=== PATIENT | male | born 1960 | race Caucasian/White ===

== ENCOUNTER 2024-10-15 13:18 | Inpatient (IN) | payer BC, SELFPAY ==
[2024-10-15] VITALS (21 sets, daily range): BP systolic 143–160; BP diastolic 86–109; PULSE 94–116; RESP 14–47; TEMP 36.1–36.6; O2SAT 84–100; BMI 25.0
--- NOTE | 2024-10-15 13:49 | XR_ITS ---
Examination: AP chest single view Technique: AP portable upright chest single view Exam date and time: October 15, 2024 1416 hrs. Comparison September 27, 2024 Indications: Onset shortness of breath today Findings: Moderate CHF Mild enlargement cardiac contour Prominent vascular congestion with perihilar edema Consider superimposed pneumonia right base Impression: Moderate CHF Consider superimposed pneumonia right base
--- NOTE | 2024-10-15 13:49 | EKG_ITS ---
[facility] Test Date: 2024-10-15 Pat Name: EDDIE LAMBERT Department: Room: - Gender: Male Emergency Nurse: : 1960 Requested By: Segundo Gotti Order Number: [id number] Reading MD: Segundo Gotti Measurements Intervals [place] Rate: 112 P: 4 VA: 140 QRS: 3 QRSD: 93 T: 92 QT: 327 QTc: 447 Interpretive Statements SINUS TACHYCARDIA WITH OCCASIONAL VENTRICULAR PREMATURE COMPLEXES LEFT VENTRICULAR HYPERTROPHY AND ST-T CHANGE [VOLTAGE CRITERIA PLUS ST/T ABNORMALITY] Compared to ECG 09/27/2024 13:43:55 Ventricular premature complex(es) now present Left ventricular hypertrophy now present ST (T wave) deviation now present T-wave abnormality no longer present /store/S0/[id number].pdf
--- NOTE | 2024-10-15 13:52 | PC.NURSE ---
Patient to er via [facility] with c/o SOB, with h/o pnuemonia. Patient recently had left foot amputation x 2 wks ago, skin is cool dry and pink, Dr. Gotti at bedside, new orders received. DIGESTION OPERATOR at bedside performing ekg.
[2024-10-15] MEDS: SODIUM CHLORIDE 0.9% 1000 ML 1,000 ML 999 ML IV (13:57)
[2024-10-15] MEDS: ALBUTEROL RT 2.5 MG/3 ML NEBU INH (14:01)
[2024-10-15] MEDS: predniSONE 20 MG TABLET 60 MG PO (14:03)
[2024-10-15 14:11] LABS: Lactate (Lactic Acid) 1.2 mMol/L (0.4-2.0)
[2024-10-15 14:13] LABS: Basophils # (Auto) 0.1 Thou/mm3 (0.0-0.2); Basophils % (Auto) 1 % (0-2.5); Eosinophils % (Auto) 0 % (0-10); Hemoglobin 9.2 g/dL (13.5-16.0); Immature Granulocytes % (Auto) 1 % (0-0); Immature Granulocytes Auto 0.09 Thou/mm3 (0.00-0.00); Lymphocytes # (Auto) 0.9 Thou/mm3 (1.0-4.8); Lymphocytes % (Auto) 8 % (10-50); Mean Corpuscular HGB Conc 31.7 g/dl (31.0-37.0); Mean Corpuscular Hemoglobin 28.2 pg (25.0-35.0); Mean Corpuscular Volume 89 fL (80-100); Monocytes % (Auto) 8 % (0-12); Neutrophils # (Auto) 9.7 Thou/mm3 (1.8-7.7); Neutrophils % (Auto) 82 % (37-80); Nucleated Red Blood Cell % 0 /100 WBC (0); Platelet Count 409 Thou/mm3 (140-440); RDW Standard Deviation 52.4 fL (35.1-43.9); Red Blood Count 3.26 Miln/mm3 (4.50-5.90); White Blood Count 11.7 Thou/mm3 (3.8-10.6)
[2024-10-15 14:30] LABS: Partial Thromboplastin Time 27.9 Seconds (22.0-36.0); Prothrombin Time 11.1 Seconds (9.0-12.2)
--- NOTE | 2024-10-15 14:41 | PD.EDSOB ---
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 Reports additional increasing cough, tightness in his left chest. Denies fevers, chills, nausea, vomiting. Denies chest pain. No further history reported at this time. Related Data Home Medications ?Medication ?Instructions ?Recorded ?Confirmed alprazolam 0.25 mg tablet 0.25 mg PO Q12HR PRN Anxiety 10/15/24 10/15/24 amoxicillin 875 mg-potassium 1 tab PO BID 10/15/24 10/15/24 clavulanate 125 mg tablet apixaban 2.5 mg tablet (Eliquis) 2.5 mg PO BID 10/15/24 10/15/24 ascorbic acid (vitamin C) 500 mg 500 mg PO QDAY 10/15/24 10/15/24 tablet bisacodyl 10 mg rectal suppository 10 mg NV QDAY PRN Constipation 10/15/24 10/15/24 (Dulcolax (bisacodyl)) calcium carbonate 600 mg PO TID 10/15/24 10/15/24 gabapentin 100 mg tablet 100 mg PO BID 10/15/24 10/15/24 glipizide 5 mg tablet 5 mg PO QDAY 10/15/24 10/15/24 guaifenesin 50 mg/5 mL oral liquid 200 mg PO Q4H PRN Secretions 10/15/24 10/15/24 hydrocodone 5 mg-acetaminophen 325 1 tab PO Q12HR PRN Moderate Pain 10/15/24 10/15/24 mg tablet (Scale Score 5-6) insulin aspart U-100 100 unit/mL See Rx Instructions .Route 10/15/24 10/15/24 subcutaneous solution .COMPLEX PRN Hyperglycemia insulin glargine 100 unit/mL (3 10 unit subcut QAM 10/15/24 10/15/24 mL) subcutaneous pen (Lantus Solostar U-100 Insulin) lactobacillus combination no.4 3 3,000 mmu cells PO QDAY 10/15/24 10/15/24 billion cell capsule (Probiotic) magnesium hydroxide 400 mg/5 mL 30 ml PO Q72H PRN Constipation 10/15/24 10/15/24 oral suspension (Milk of Magnesia) prednisone 20 mg tablet 20 mg PO QDAY 10/15/24 10/15/24 sodium phosphates 19 gram-7 118 ml NV Q72H PRN Constipation 10/15/24 10/15/24 gram/118 mL enema (Fleet Enema) zinc 10 mg tablet 10 mg PO QDAY 10/15/24 10/15/24 Previous Rx's ?Medication ?Instructions ?Recorded amlodipine 5 mg tablet 10 mg (2 x 5 mg) PO QDAY #1 tab 10/03/24 atorvastatin 20 mg tablet 40 mg (2 x 20 mg) PO HS #1 tab 10/03/24 metoprolol succinate 25 mg 25 mg PO QDAY #13 tabs 10/03/24 tablet,extended release 24 hr Allergies Allergy/AdvReac Type Severity Reaction Status Date / Time No Known Allergies Allergy Verified 09/22/24 03:47 Review of Systems Review of Systems Narrative Review of Systems: Gen: No fever, no chills, no weight loss EYES: No discharge, no visual changes, no pain HEENT: No ear pain, no congestion, no sore throat PULM: +shortness of breath, no cough, no congestion CV: +chest tightness. No chest pain, no dyspnea on exertion, no palpitations GI: No nausea, no vomiting, no diarrhea, no pain, no constipation : No frequency, no urgency, no dysuria Musc/skel: No joint pain, no back pain Skin: No rash Psyc: No hallucinations, no depression Heme/Lymph: No easy bleeding or bruising tendencies Neuro: No weakness, no headache Past Medical History Past Medical History NEUROLOGIC: Negative Seizures CARDIAC: Positive Hypercholesterolemia, Cellulitis, Hypertension and Hypotension; Negative Cardiac Disorders, Peripheral Vascular Disease, Congestive Heart Failure, Valvular Heart Disease, Rheumatic Fever, Edema, Pericarditis or Varicose Veins RESPIRATORY: Positive Asthma (pneumonia); Negative Chronic Obstructive Pulmonary Disease (COPD) GASTROINTESTINAL: Negative Gastrointestinal Disorders GENITOURINARY: Negative Renal Disease or Benign Prostatic Hyperplasia MUSCULOSKELETAL: Negative Fractures ENDOCRINE: Positive Diabetes Mellitus Type 2; Negative Endocrine Disorders, Diabetes Mellitus Type 1, Brayden's Syndrome, [place]'s Disease or Adrenal Disease HEMATOLOGIC: Negative Sickle Cell Disease PSYCHO/SOCIAL: Negative Depression or Anxiety OTHER HISTORY: Positive Falls; Negative Blood Transfusions, Anesthesia Reactions or Cancer Surgical History SURGICAL: Negative Pacemaker Social History SMOKING STATUS: Former smoker SUBSTANCE USE: does not use ED Exam Narrative Physical exam: GENERAL APPEARANCE: AxOx4, no acute distress, mild palor HEENT: NC, AT. MMM. EOMI, clear conjunctiva, oropharynx clear. NECK: Supple without lymphadenopathy. No stiffness or restricted ROM. HEART: Normal rate and regular rhythm, normal S1/S1, no m/r/g LUNGS: course wheezes bilateral lung [place], moving air well. No crackles ABDOMEN: Soft, nontender, nondistended with good bowel sounds heard. BACK: No midline C/T/L spine pain or deformity, No CVAT, no obvious deformity. EXTREMITIES: Right foot amputation surgical scar clean dry and intact. Without cyanosis, clubbing or edema. MUSCULOSKELETAL: FROM of all major joints, no chest tenderness NEUROLOGICAL: Grossly nonfocal. Alert and oriented, moving all 4 extremities. CN not formally tested but appear grossly intact. Observed to ambulate with normal gait. Skin: Warm and dry without any rash.mild palor Course Quality Measures none Orders Category Date Time Status Bedside COVID-19 Antigen Test NOW Care 10/15/24 13:49 Active Bedside Influenza A&B Antigen Test NOW Care 10/15/24 13:[address] Screening NOW Care 10/15/24 14:50 Active EKG (ED ONLY) *Do not use* NOW Care 10/15/24 13:49 Completed Notify provider NOW Care 10/15/24 16:39 Active Urinary Catheter QS Care 10/15/24 16:[address] angio chest Stat Exams 10/15/24 14:50 Completed EKG (ED Only) Stat Exams 10/15/24 13:49 Draft XR chest 1V Stat Exams 10/15/24 13:49 Completed BNP [B-Type Natriuretic Peptide] Stat Lab 10/15/24 14:00 Completed Blood Culture (Lab) Stat Lab 10/15/24 14:00 Results CBC Stat Lab 10/15/24 14:00 Completed CMP [Comprehensive Metabolic Panel] Stat Lab 10/15/24 14:00 Completed Lactate (Lactic Acid) Stat Lab 10/15/24 14:00 Completed PTT [Partial Thromboplastin Time] Stat Lab 10/15/24 23:30 Completed Partial Thromboplastin Time AM DRAW Lab 10/17/24 04:55 Completed Partial Thromboplastin Time Stat Lab 10/15/24 14:00 Completed Procalcitonin Stat Lab 10/15/24 14:00 Completed Prothrombin Time with INR AM DRAW Lab 10/17/24 04:55 Completed Prothrombin Time with INR Stat Lab 10/15/24 14:00 Completed Troponin I Stat Lab 10/15/24 14:00 Completed Urinalysis Stat Lab 10/15/24 16:20 Completed ALBUTEROL RT 3ml [Proventil Rt 3ml] Med 10/15/24 13:49 Discontinued 2.5 mg INH X1 ONE Furosemide Inj [Lasix Inj] Med 10/15/24 15:59 Discontinued 40 mg IVP X1 ONE Heparin Inj Med 10/15/24 16:39 Discontinued 4,000 unit IV X1 ONE Heparin/D5w 25K 250 ML Ivpb [Heparin in D5w Ivpb] Med 10/15/24 16:45 Discontinued 25,000 unit in 250 ml IV 11.603 units/kg/hr Sodium Chloride 0.9% 1000 ml [Ns] 1,000 ml Med 10/15/24 13:48 Discontinued IV 999 mls/hr predniSONE Med 10/15/24 13:48 Discontinued 60 mg PO X1 ONE Vital Signs Vital signs: Vital Signs Temperature 97.8 F 10/15/24 13:38 Pulse Rate 114 H 10/15/24 13:38 Respiratory Rate 28 H 10/15/24 13:38 Blood Pressure 159/109 H 10/15/24 13:38 Pulse Oximetry (%) 84 L 10/15/24 13:38 Oxygen Delivery Method Room Air 10/15/24 13:38 Shortness of Breath / Dyspnea Patient data External records reviewed:: [facility] previous records Clinical information provided by:: patient Social determinants that could affect healthcare access:: none Patient has the following chronic illnesses:: hypertension, diabetes. How is presenting disease/condition affected by chronic disease/condition?: exacerbated by Evaluation data The following diagnostics were reviewed and interpreted by me:: lab results, radiology exam(s) and EKG tracing(s) (Sinus tachycardia, rate 109,normal axis, normal intervals, no acute ST or T wave changes) Lab and/or radiology exams considered but not ordered:: none Interpretation Summary: Ordering Physician: Segundo Gotti MD Date of Service: 10/15/24 Procedure(s): XR chest 1V Accession Number(s): [id number] cc: Segundo Gotti MD; Homer Mohr MD~ Examination: AP chest single view Technique: AP portable upright chest single view Exam date and time: October 15, 2024 1416 hrs. Comparison September 27, 2024 Indications: Onset shortness of breath today Findings: Moderate CHF Mild enlargement cardiac contour Prominent vascular congestion with perihilar edema Consider superimposed pneumonia right base Impression: Moderate CHF Consider superimposed pneumonia right base Dictated By: Homer Mohr MD Signed By: <Electronically signed by Homer Mohr MD in OV> 10/15/24 1432 Ordering Physician: Segundo Gotti MD Date of Service: 10/15/24 Procedure(s): CT angio chest Accession Number(s): [id number] cc: Segundo Gotti MD; Homer Mohr MD; Rickie Meneses MD~ Examination: CTA chest with intravenous contrast 2-D reconstructions 3-D reconstructions, vascular Date and time of exam: October 15, 2024 1527 hrs. Indications: Onset nausea vomiting shortness of breath chest pain beginning 3 days ago, clinical diagnosis pulmonary artery emboli, moderate CHF with perihilar edema on chest x-ray October 15, 2024 CTDI: vol (mGy) 25.51 DLP: (mGycm) 476 Technique: Multiple axial sections of the thorax have been obtained. 3 mm slice thickness, from below the hemidiaphragms to above the apices of the lungs. Mediastinal and lung density settings have been obtained. 2-D sagittal and coronal reconstructions. 3-D angiographic renderings, 3-D volume renderings, 3D post processing, vascular maximum intensity projections obtained. Contrast administered is 100 cc Isovue-370. Low dose protocols were performed. One or more of the following dose reduction techniques were used; automated exposure control, adjustment of the mA and/or KV according to patient size, use of iterative reconstruction technique. Findings: No thoracic aortic aneurysm dilatation or dissection Main pulmonary artery segment measures 25 mm Positive for small pulmonary artery emboli right upper lobe pulmonary artery branches, for instance axial image 150, 151 Positive for small pulmonary artery emboli right lower lobe pulmonary artery branches, for instance axial image 159 Moderate CHF with mild to moderate enlargement cardiac contour, prominent vascular congestion, perihilar edema and large bilateral pleural effusions No visualized liver or splenic lesion Kidneys partially visualized no hydronephrosis Moderate osteopenia Impression: Moderate CHF Positive for small bilateral pulmonary artery emboli, right upper lobe and right lower lobe pulmonary artery branches Dictated By: Homer Mohr MD Signed By: <Electronically signed by Homer Mohr MD in OV> 10/15/24 1620 == Medications / Prescriptions Medications or Prescriptions considered but not ordered:: none Medication administrations:: Medication Administration History Acetaminophen (Acetaminophen 325 Mg Tablet) 650 mg PO Q6HR PRN PRN Reason: Mild Pain 1-3 or Fever >100.3 Stop: 11/14/24 20:46 Last Admin: 10/17/24 18:31 Dose: 650 mg Documented By: GEORGES Amlodipine Besylate (Amlodipine Besylate 5 Mg Tablet) 5 mg PO [facility] Stop: 11/14/24 20:59 Last Admin: 10/17/24 21:05 Dose: 5 mg Documented By: [facility] Admin: 10/16/24 20:14 Dose: 5 mg Documented By: Admin: 10/15/24 22:09 Dose: Not Given Documented By: AM Non-Admin Reason: Unable to Swallow Atorvastatin Calcium (Atorvastatin Calcium 20 Mg Tablet) 40 mg PO [facility] Stop: 11/14/24 20:59 Last Admin: 10/17/24 21:04 Dose: 40 mg Documented By: [facility] Admin: 10/16/24 20:14 Dose: 40 mg Documented By: Admin: 10/15/24 22:10 Dose: Not Given Documented By: AM Non-Admin Reason: Unable to Swallow Bumetanide (Bumetanide Inj 0.25 Mg/Ml Vial 4 Ml) 2 mg IVP BID [facility] Stop: 11/15/24 12:29 Last Admin: 10/17/24 21:04 Dose: 2 mg Documented By: [facility] Admin: 10/17/24 08:09 Dose: 2 mg Documented By: Admin: 10/16/24 20:14 Dose: 2 mg Documented By: Admin: 10/16/24 14:10 Dose: 2 mg Documented By: DORA Dextrose (Dextrose 50%-Water Inj 50 Ml Syringe) 25 ml IV Q15MIN PRN PRN Reason: BG 50-70 responsive npo pt Stop: 11/14/24 20:30 Dextrose (Dextrose 50%-Water Inj 50 Ml Syringe) 50 ml IV Q15MIN PRN PRN Reason: BG <50 OR BG <70 & pt unresponsive Stop: 11/14/24 20:30 Glucagon (Glucagon Inj 1 Mg Vial) 1 mg IM Q15MIN PRN PRN Reason: BG <70, and no IV access Cefepime HCl 2 gm/ Sodium (Chloride) 50 mls @ 100 mls/hr IV Q8HR JAZMÍN Stop: 10/22/24 20:21 Last Admin: 10/18/24 05:34 Dose: 100 mls/hr Documented By: Infusion: 10/17/24 21:36 Dose: Infused Documented By: Admin: 10/17/24 21:06 Dose: 100 mls/hr Documented By: Infusion: 10/17/24 15:15 Dose: Infused Documented By: Admin: 10/17/24 14:45 Dose: 100 mls/hr Documented By: Infusion: 10/17/24 06:21 Dose: Infused Documented By: Admin: 10/17/24 05:51 Dose: 100 mls/hr Documented By: Infusion: 10/16/24 22:09 Dose: Infused Documented By: Admin: 10/16/24 21:39 Dose: 100 mls/hr Documented By: Infusion: 10/16/24 14:41 Dose: Infused Documented By: Admin: 10/16/24 14:11 Dose: 100 mls/hr Documented By: Infusion: 10/16/24 06:05 Dose: Infused Documented By: Admin: 10/16/24 05:35 Dose: 100 mls/hr Documented By: Admin: 10/15/24 21:34 Dose: Not Given Documented By: AM Non-Admin Reason: given at 2024 in the ER Infusion: 10/15/24 21:04 Dose: Infused Documented By: Admin: 10/15/24 20:25 Dose: 100 mls/hr Documented By: KD Magnesium Sulfate (Magnesium Sulfate Ivpb) 4 gm in 50 mls @ 12.5 mls/hr IV X1 ONE Stop: 10/18/24 12:01 Insulin Glargine (Insulin Glargine (Lantus) 5 Unit/0.05 Ml (Per 5 Units)) 12 unit SC HS JAZMÍN Stop: 11/16/24 20:59 Last Admin: 10/17/24 21:05 Dose: 12 unit Documented By: CMC Co-signed By: Insulin Human Lispro (Insulin Lispro (Admelog) 1 Unit/0.01 Ml Unit) 0 unit SC AC [facility]; Protocol Stop: 11/16/24 11:29 Last Admin: 10/18/24 07:24 Dose: Not Given Documented By: TM Non-Admin Reason: Per Protocol Admin: 10/17/24 17:05 Dose: 1 unit Documented By: PP Co-signed By: JAYSON Admin: 10/17/24 12:26 Dose: Not Given Documented By: PP Non-Admin Reason: NPO Insulin Human Lispro (Insulin Lispro (Admelog) 1 Unit/0.01 Ml Unit) 1 unit SC AC [facility] Stop: 11/16/24 11:29 Last Admin: 10/18/24 08:49 Dose: Not Given Documented By: TM Non-Admin Reason: Patient Refused Admin: 10/17/24 17:05 Dose: 1 unit Documented By: GEORGES Co-signed By: JAYSON Admin: 10/17/24 12:25 Dose: Not Given Documented By: PP Non-Admin Reason: NPO Levalbuterol HCl (Levalbuterol Rt 0.31 Mg/3 Ml Nebu) 0.31 mg INH Q8HR PRN PRN Reason: WHEEZING Stop: 11/15/24 13:32 Last Admin: 10/16/24 23:12 Dose: 0.31 mg Documented By: Admin: 10/16/24 16:11 Dose: 0.31 mg Documented By: JOEL Lorazepam (Lorazepam 2 Mg/Ml Vial) 0.5 mg IVP BID PRN PRN Reason: ANXIETY Stop: 10/20/24 20:59 Last Admin: 10/17/24 08:21 Dose: 0.5 mg Documented By: Admin: 10/15/24 18:53 Dose: 0.5 mg Documented By: ERICA Melatonin (Melatonin 3 Mg Tablet) 3 mg PO HS JAZMÍN Stop: 11/15/24 02:14 Last Admin: 10/17/24 21:04 Dose: 3 mg Documented By: Admin: 10/16/24 20:14 Dose: 3 mg Documented By: Admin: 10/16/24 02:58 Dose: Not Given Documented By: AM Non-Admin Reason: patient is already sleeping Potassium Chloride (Potassium Chloride 20 Meq Tabcr) 20 meq PO X1 ONE Stop: 10/18/24 10:01 Sennosides (Senna Tablet) 1 tab PO QDAY PRN; Protocol PRN Reason: CONSTIPATION Stop: 11/15/24 15:31 Discontinued Medications Albuterol (Albuterol Rt 2.5 Mg/3 Ml Nebu) 2.5 mg INH X1 ONE Stop: 10/15/24 13:50 Last Admin: 10/15/24 14:01 Dose: 2.5 mg Documented By: JOEL Albuterol (Albuterol Rt 2.5 Mg/0.5 Ml Nebu) Confirm Administered Dose 5 mg .ROUTE .STK-MED ONE Stop: 10/15/24 21:45 Furosemide (Furosemide Inj 10 Mg/Ml 4ml Vial) 40 mg IVP X1 ONE Stop: 10/15/24 16:00 Last Admin: 10/15/24 16:07 Dose: 40 mg Documented By: ERICA Furosemide (Furosemide Inj 10 Mg/Ml 4ml Vial) 40 mg IVP QDAY [facility] Stop: 11/15/24 08:59 Furosemide (Furosemide Inj 10 Mg/Ml 4ml Vial) 40 mg IVP BID JAZMÍN Stop: 11/15/24 08:59 Last Admin: 10/16/24 08:09 Dose: 40 mg Documented By: DORA Furosemide (Furosemide Inj 10 Mg/Ml 4ml Vial) 40 mg IVP X1 ONE Stop: 10/15/24 21:50 Last Admin: 10/15/24 22:02 Dose: Not Given Documented By: AM Non-Admin Reason: Duplicate Medication on eMAR Furosemide (Furosemide Inj 10 Mg/Ml 4ml Vial) Confirm Administered Dose 40 mg .ROUTE .STK-MED ONE Stop: 10/15/24 21:46 Last Admin: 10/15/24 21:57 Dose: 40 mg Documented By: MARLIN Guaifenesin (Guaifenesin/P-Ephed Tablet) 1 tab PO X1 ONE Stop: 10/15/24 20:57 Last Admin: 10/15/24 21:35 Dose: Not Given Documented By: MARLIN Non-Admin Reason: Patient Refused Guaifenesin (Guaifenesin Syrup 200 Mg/10 Ml Udc) 100 mg PO X1 ONE; Protocol Stop: 10/18/24 02:10 Last Admin: 10/18/24 02:26 Dose: 100 mg Documented By: CRISTO Heparin Sodium (Porcine) (Heparin Sod Inj 5000 Unit/Ml Vial) 4,000 unit IV X1 ONE; Protocol Stop: 10/15/24 16:40 Last Admin: 10/15/24 17:09 Dose: 4,000 unit Documented By: ERICA Co-signed By: ARELIS Comments: via 18g right ac Heparin Sodium (Porcine) (Heparin Sod Inj 5000 Unit/Ml Vial) 4,000 unit IV X1 ONE Stop: 10/16/24 01:16 Last Admin: 10/16/24 01:11 Dose: 4,000 unit Documented By: MARLIN Co-signed By: [email or web address]) Heparin Sodium (Porcine) (Heparin Sod Inj 5000 Unit/Ml Vial) 2,000 unit IV X1 ONE Stop: 10/16/24 17:35 Last Admin: 10/16/24 17:45 Dose: 2,000 unit Documented By: DORA Co-signed By: JAMEL Sodium Chloride (Ns) 1,000 mls @ 999 mls/hr IV .Q1H1M ONE Stop: 10/15/24 14:48 Last Infusion: 10/15/24 15:00 Dose: Infused Documented By: Admin: 10/15/24 13:57 Dose: 999 mls/hr Documented By: ERICA Heparin Sodium/Dextrose (Heparin In D5w Ivpb) 25,000 unit in 250 mls @ 10 mls/hr IV .Q24H JAZMÍN; Protocol Stop: 10/29/24 16:44 Last Titration: 10/16/24 10:23 Dose: 15.6 units/kg/hr, 13.445 mls/hr Documented By: DORA Co-signed By: MGD Titration: 10/16/24 01:12 Dose: 15.6 units/kg/hr, 13.445 mls/hr Documented By: MARLIN Co-signed By: [email or web address]) Admin: 10/15/24 17:11 Dose: 11.603 units/kg/hr, 10 mls/hr Documented By: KM Co-signed By: EF Magnesium Sulfate (Magnesium Sulfate Ivpb) 4 gm in 50 mls @ 12.5 mls/hr IV X1 ONE Stop: 10/16/24 12:07 Last Admin: 10/16/24 08:22 Dose: 12.5 mls/hr Documented By: NS Magnesium Sulfate (Magnesium Sulfate Ivpb) 4 gm in 50 mls @ 12.5 mls/hr IV X1 ONE Stop: 10/16/24 16:59 Last Admin: 10/16/24 15:03 Dose: 12.5 mls/hr Documented By: NS Heparin Sodium/Dextrose (Heparin In D5w Ivpb) 25,000 unit in 250 mls @ 10 mls/hr IV .Q24H PRN; Protocol PRN Reason: PROTOCOL Stop: 10/29/24 16:44 Last Titration: 10/17/24 14:31 Dose: 17.55 units/kg/hr, 15.125 mls/hr Documented By: PP Co-signed By: MGDeidre Admin: 10/17/24 08:22 Dose: 17.55 units/kg/hr, 15.125 mls/hr Documented By: PP Co-signed By: LW Titration: 10/17/24 07:29 Dose: Infused Documented By: PP Co-signed By: LW Titration: 10/17/24 06:15 Dose: 17.55 units/kg/hr, 15.125 mls/hr Documented By: SA Co-signed By: PP Titration: 10/17/24 01:25 Dose: 17.55 units/kg/hr, 15.125 mls/hr Documented By: SA Co-signed By: WB Titration: 10/16/24 17:46 Dose: 17.55 units/kg/hr, 15.125 mls/hr Documented By: NS Co-signed By: JRR Admin: 10/16/24 14:35 Dose: 15.55 units/kg/hr, 13.4 mls/hr Documented By: NS Co-signed By: RADHA Insulin Glargine (Insulin Glargine (Lantus) 5 Unit/0.05 Ml (Per 5 Units)) 10 unit SC HS JAZMÍN Stop: 11/14/24 20:59 Last Admin: 10/16/24 20:10 Dose: 10 unit Documented By: Co-signed By: NICOLE Admin: 10/15/24 22:12 Dose: 10 unit Documented By: AM Co-signed By: Insulin Human Lispro (Insulin Lispro (Admelog) 1 Unit/0.01 Ml Unit) 0 unit SC ACHS [facility]; Protocol Stop: 11/14/24 20:59 Last Admin: 10/17/24 08:09 Dose: Not Given Documented By: PP Non-Admin Reason: NPO Admin: 10/16/24 20:10 Dose: 1 unit Documented By: Co-signed By: NICOLE Admin: 10/16/24 17:51 Dose: 1 unit Documented By: DORA Co-signed By: PANCHO Admin: 10/16/24 11:31 Dose: 2 unit Documented By: DORA Co-signed By: JAYSON Admin: 10/16/24 07:43 Dose: 1 unit Documented By: DORA Co-signed By: RADHA Admin: 10/15/24 22:12 Dose: 2 unit Documented By: AM Co-signed By: NICOLE Levalbuterol HCl (Levalbuterol Rt 0.31 Mg/3 Ml Nebu) 0.31 mg INH X1 ONE Stop: 10/16/24 08:23 Last Admin: 10/16/24 09:13 Dose: 0.31 mg Documented By: MR Lidocaine HCl (Lidocaine Inj Pf 1% 30 Ml Vial) Confirm Administered Dose 30 ml .ROUTE .STK-MED ONE Stop: 10/17/24 13:29 Potassium Chloride (Potassium Chloride 10% 20 Meq/15 Ml Udc) 40 meq PO X1 ONE Stop: 10/17/24 10:13 Last Admin: 10/17/24 14:44 Dose: 40 meq Documented By: PP Potassium Chloride (Potassium Chloride 20 Meq Tabcr) 40 meq PO X1 ONE Stop: 10/18/24 08:02 Prednisone (Prednisone 20 Mg Tablet) 60 mg PO X1 ONE Stop: 10/15/24 13:49 Last Admin: 10/15/24 14:03 Dose: 60 mg Documented By: ERICA Sodium Chloride (Sodium Cl Rt [place] 3% 4 Ml Nebu (Non-Formulary)) 4 ml INH X1 ONE Stop: 10/15/24 20:58 Sodium Chloride (Sodium Chloride Rt 10% 15 Ml Nebu) 5 ml INH X1 ONE Stop: 10/15/24 21:05 Last Admin: 10/15/24 23:44 Dose: 5 ml Documented By: FYS see above Consultations Consultation(s) initiated? (list below): Yes Consultation #1 (Physician, Specialty, Details): Discussed with performance test consultant Dr. Meneses regarding the patients current status and results, agrees to admission Diagnosis Shortness of Breath Differential Diagnosis: other (pneumonia, CHF exacerbation, PE) Most likely diagnosis given after review of the tests above:: CHF exacerbation, bilateral PE Admission Indicated Admission indicated?: indicated Admission Request Was there a request for admission?: Yes Admission Attestation Admission request attestation: Discussed case with Dr. Meneses, his PCP regarding admission. Discussed patients ED course, exam findings, labs, and radiology results. Dr. Meneses agrees to accept the patient for admission. Disposition Plan Disposition Plan: Admit Discharge Plan Plan Patient Disposition: Admit Acute Care w/in Hospital Problem List Clinical Impression: Bilateral pulmonary embolism, Acute exacerbation of CHF (congestive heart failure)
[2024-10-15 14:43] LABS: Alanine Aminotransferase 20 U/L (10-49); Albumin, Serum 3.9 gm/dL (3.4-4.8); Albumin/Globulin Ratio 1.3 (1.2-2.2); Alkaline Phosphatase 106 U/L (46-116); Anion Gap 5 (7-16); Aspartate Amino Transferase 17 U/L (0-34); BUN/Creatinine Ratio 24 Ratio (12-20); Bilirubin,Total 0.3 mg/dL (0.3-1.2); Blood Urea Nitrogen 26 mg/dL (9-23); Calcium 9.2 mg/dL (8.3-10.6); Calcium (Corrected) 9.3 mg/dL (8.5-10.1); Carbon Dioxide 28.1 mMol/L (20.0-31.0); Chloride 104 mMol/L (98-107); Creatinine (Component) 1.1 mg/dL (0.6-1.3); Estimated Creatinine Clearance 77.7 mL/min (>60); Globulin 2.9 gm/dL (2.3-3.5); Glucose 127 mg/dL (74-106); Osmolality,Calculated 280 (275-295); Potassium 3.9 mMol/L (3.4-5.1); Procalcitonin 0.24 ng/ml (0.0-0.49); Sodium 137 mMol/L (136-145); Total Protein 6.8 gm/dL (5.7-8.2); eGFR > 60 See Note
[2024-10-15 14:46] LABS: B-Type Natriuretic Peptide > 3280 pg/mL (0-100)
--- NOTE | 2024-10-15 14:50 | XR_ITS ---
Examination: CTA chest with intravenous contrast 2-D reconstructions 3-D reconstructions, vascular Date and time of exam: October 15, 2024 1527 hrs. Indications: Onset nausea vomiting shortness of breath chest pain beginning 3 days ago, clinical diagnosis pulmonary artery emboli, moderate CHF with perihilar edema on chest x-ray October 15, 2024 CTDI: vol (mGy) 25.51 DLP: (mGycm) 476 Technique: Multiple axial sections of the thorax have been obtained. 3 mm slice thickness, from below the hemidiaphragms to above the apices of the lungs. Mediastinal and lung density settings have been obtained. 2-D sagittal and coronal reconstructions. 3-D angiographic renderings, 3-D volume renderings, 3D post processing, vascular maximum intensity projections obtained. Contrast administered is 100 cc Isovue-370. Low dose protocols were performed. One or more of the following dose reduction techniques were used; automated exposure control, adjustment of the mA and/or KV according to patient size, use of iterative reconstruction technique. Findings: No thoracic aortic aneurysm dilatation or dissection Main pulmonary artery segment measures 25 mm Positive for small pulmonary artery emboli right upper lobe pulmonary artery branches, for instance axial image 150, 151 Positive for small pulmonary artery emboli right lower lobe pulmonary artery branches, for instance axial image 159 Moderate CHF with mild to moderate enlargement cardiac contour, prominent vascular congestion, perihilar edema and large bilateral pleural effusions No visualized liver or splenic lesion Kidneys partially visualized no hydronephrosis Moderate osteopenia Impression: Moderate CHF Positive for small bilateral pulmonary artery emboli, right upper lobe and right lower lobe pulmonary artery branches
[2024-10-15] MEDS: FUROSEMIDE INJ 10 MG/ML 4ML VIAL 40 MG IVP (16:07)
[2024-10-15 16:23] LABS: Collection Type, Urine Clean Catch; Squamous Epithelial Cell,Urine 0 /hpf (0-5)
[2024-10-15 16:29] LABS: Bilirubin,Urine Negative (Negative); Blood,Urine Trace (Negative); Color,Urine Lt-Yellow (Lt Yel-Yel); Glucose, Urine Negative (Negative); Ketones,Urine Negative (Negative); Leukocyte Esterase,Urine Positive (Negative); Nitrite,Urine Negative (Negative); Protein,Urine 3+ (Neg - Trace); RBC,Urine 5 /hpf (0-3); Urobilinogen,Urine Negative mg/dL (0.0-1.0); WBC,Urine 80 /hpf (0-5)
[2024-10-15 16:38] LABS: Clarity,Urine Hazy (Clear/Hazy)
[2024-10-15] MEDS: HEPARIN SOD INJ 5000 UNIT/ML VIAL 4000 UNIT IV (17:09)
[2024-10-15] MEDS: Heparin/D5w 25K 250 ML Ivpb 25,000 UNIT/250 ML BAG 10 UNIT IV (17:11)
--- NOTE | 2024-10-15 18:34 | PC.NURSE ---
Patient anxious requesting anxiety medication has increased WOB, called Dr. Meneses made her aware, new orders received for bipap and ativan.
--- NOTE | 2024-10-15 18:45 | PC.NURSE ---
cancelled bipap and orders for highflow nc.
[2024-10-15] MEDS: LORazepam 2 MG/ML VIAL 0.5 MG IVP (18:53)
--- NOTE | 2024-10-15 18:54 | PC.NURSE ---
Dr. Villarreal at bedside to evaluate patient and RT at bedside to place pt. on high flow NC.
--- NOTE | 2024-10-15 19:08 | PC.CC ---
Pt Сергей Gibson is a 64 yr old male admitted to hospitalist services for bi-lat PE and CHF. HOUSE MOVER HELPER CC met with pt at bedside to complete initial assessment. At time of encounter pt is noted to be alert and oriented but extremely SOB. Pt able to respond to all assessment questions appropriately. Some historic information attained from pts chart. Pt able to confirm demographic information. Pt currently placed at [facility]. Pt identifies his brother Osiel Gibson as surrogate DM. Pt unable to provide contact information. At baseline pt is independent with ambulation and ADLs. Pt is gainfully employed. Pt is diabetic. Pt is not on dialysis. Pt currently on 25L of O2. Pt is followed by Dr. Meneses from primary care. D/c disposition based on pts progress. Pt likely to return to [facility], will require transport. Advance Directive not discussed at this time.
[2024-10-15] MEDS: CEFEPIME INJ 2 GM in SODIUM CHLORIDE 0.9% (P) 50 ML IV (20:25)
--- NOTE | 2024-10-15 20:29 | ECHO_ITS ---
Transthoracic Echo Report Ht (in): 73 Wt (lb): 190 Exam Location: Portable Status: Inpatient Furnace Cleaner: Dedra Oconnor Indications: Procedure Performed: BP: 137 / 80 HR: 98 Rhythm: Sinus Technical Quality: Fair MEASUREMENTS (Male / Female) Normal Values 2D ECHO LV Diastolic Diameter PLAX 6.3 cm 4.2 - 5.9 / 3.9 - 5.3 cm LV Systolic Diameter PLAX 5.3 cm IVS Diastolic Thickness 0.8 cm 0.6 - 1.0 / 0.6 - 0.9 cm LVPW Diastolic Thickness 0.8 cm 0.6 - 1.0 / 0.6 - 0.9 cm LV Relative Wall Thickness 0.2 LVOT Diameter 2.0 cm LA Volume Index 35.6 cm?/m? 16 - 28 cm?/m? Ascending Aorta Diameter 2.8 cm M-MODE Aortic Root Diameter MM 2.9 cm LA Systolic Diameter MM 4.6 cm LA Ao Ratio MM 1.6 MV E Point Septal Separation 1.9 cm AV Cusp Separation MM 2.1 cm DOPPLER AV Peak Velocity 99.2 cm/s AV Peak Gradient 3.9 mmHg AV Mean Gradient 2.0 mmHg AV Velocity Time Integral 19.1 cm LVOT Peak Velocity 83.9 cm/s LVOT Peak Gradient 2.8 mmHg LVOT Velocity Time Integral 13.1 cm LVOT Cardiac Index 1908.6 cm?/min?m? AV Area Cont Eq vti 2.2 cm? AV Area Cont Eq pk 2.7 cm? MV Peak Velocity 121.0 cm/s MV Peak Gradient 5.9 mmHg MV Mean Velocity 66.1 cm/s MV Mean Gradient 2.0 mmHg MV Area PHT 6.5 cm? MR Peak Velocity 375.0 cm/s MR Peak Gradient 56.3 mmHg Mitral E Point Velocity 72.8 cm/s Mitral A Point Velocity 37.3 cm/s Mitral E to A Ratio 2.0 LV E' Lateral Velocity 9.8 cm/s Mitral E to LV E' Lateral Ratio 7.4 LV E' Septal Velocity 10.3 cm/s Mitral E to LV E' Septal Ratio 7.1 TR Peak Velocity 322.0 cm/s TR Peak Gradient 41.5 mmHg FINDINGS Left Ventricle Dilated left ventricle with severe global hypokinesis left ventricular ejection fraction approximate ly 25%. Right Ventricle The right ventricle is normal in size and systolic function. The estimated right ventricular systoli c pressure, 49 mmHg. RAP 5. Left Atrium The left atrium is mildly dilated. Right Atrium The right atrium is normal by two-dimensional imaging, color flow and Doppler imaging with no struct ural abnormalities, no thrombus formation present. Atrial Septum The interatrial septum appears normal with no evidence of a shunt. Aorta The aorta is normal by two-dimensional, color flow and Doppler interrogation. Mitral Valve The mitral valve is mildly MAC. There is mild mitral valve regurgitation. Aortic Valve The aortic valve is trileaflet and normal by two-dimensional, color flow and Doppler interrogation. There is no significant aortic valve regurgitation. Tricuspid Valve The tricuspid valve is normal by two-dimensional, color flow and Doppler interrogation. There is mil d tricuspid valve regurgitation. Pulmonic Valve There is no significant pulmonic valve regurgitation. Vessels The pulmonary artery appears normal. The inferior vena cava pulmonary and hepatic veins appear elver l. Pericardium The pericardium is normal by two-dimensional imaging. There is pericardial effusion. Other Findings Left pleural effusion present. CONCLUSIONS Dilated cardiomyopathy severe global hypokinesis severe systolic dysfunction ejection fraction of 25 %. Mitral valve thickening mild mitral regurgitation. Mild tricuspid regurgitation. Evidence of large left pleural effusion is present. Nena Patel (Electronically Signed) Final Date: 17 October 2024 19:21
--- NOTE | 2024-10-15 20:42 | PC.NURSE ---
REPORT CALLED TO LETICIA FELDMAN. ALL QUESTIONS ASKED AND ANSWERED. IVF INFUSING WITHOUT DIFFICULTY. PATIENT TRANSFERRED WITH STAFF NO DISTRESS NOTICED AT TRANSFER.
--- NOTE | 2024-10-15 20:59 | ESHP_ITS ---
<Statement entered by Olaf Alvarenga MD - 10/16/24 02:34> I was present for the essential components of the history, physical examination, diagnosis, and treatment plan with the resident. I have reviewed the documentation, discussed the case with the resident and agree with the patient's care as documented by the resident. Olaf Alvarenga MD Documentation for date of: 10/15/24 HPI History of Present Illness History of present illness: CC: SOB Patient is a 64-year-old male with a past medical history of hypertension, hyperlipidemia, diabetes mellitus type 2 insulin-dependent and a recent history of BKA on (09/29/2024) recently discharged on October 06, 2024. Patient presented to the emergency room via EMS for the chief complaint of increasing shortness of breath that began this morning (10/15/2024) with increasing dyspnea, productive cough, chills, subjective fevers, and increased perspiration. Patient tried taking Benadryl but did not improve symptoms. Patient denied hematemesis. Patient denied chest pain or palpitations. Patient denied orthopnea or paroxysmal orthopnea. Past medical history of non-adherence to medication, today, he was unable to recall any of his medication. After discharge, patient complete antibiotic course as inpatient during previous admission. PCP Dr. Meneses. Admitted on 10/15/2024 for Sepsis secondary to community acquired pneumonia and PE. ER Course: Vitals T 97.8, HR 114, RR 28, BP 159/109, SpO2 84% RA WBC 11.7 Hgb 9.2, Hct 29.0 MCV 89 ABG: ABG 7.44, pCO2 38, pO 115 Troponin 1.100, 0.800 BNP>3280 EKG sinus Tachy w/ PVC Cxr (10/15/2024): Moderate CHF, prominent vascular congestion w/ perihilar edema, and consider superimposed pneumonia right base CTA (10/15/2024): Moderate CHF. Positive for small bilateral pulmonary artery emboli, right upper lobe and right lower lobe pulmonary artery branches. UA: Protiens +3, WBC 80, Esterase Positive NS 1 Bous Medication: Albuterol 2.5 mg INH X 1, Prednisone 60 mg PO X 1, Furosemide IVP X1, Loading dose of heparin 4,000 units & weight based heparin drip, Lorazepam 0.5 mg IVP BID PRN PMH: -HTN -HLD -DM type 2, insulin dependent stated blood glucose AM 125-140 Previous A1c 09/23/2024 -6.7 -Previous hospitalization patient had BKA & upgraded to ICU for Aspiration pneumonia (w/ inbuation); Discharged from floors on 10/06/2024. Past Surgical History: -Right, BKA 09/29/2024 Home Medication: Medication Reconciliation Needed, patient is unsure of medication currently taking Eliquis 2.5 mg Metoprolol Succinate 25 mg (denied CHF history) Gabapentin 100 mg Amlodipine 5 mg Atorvastatin 40 mg HS Insulin Lantus Novolog Glipizide 5 mg Social History: Denied illicit drug use Never smoker Allergies: None Code Status: Full code Review of Systems Review of Systems Narrative Review of Systems: General appearance: NO weight change, NO fatigue, NO weakness, Subjective fever, YES chills, NO night sweats, YES cough, PRODUCTIVE; Increase perspiration. Skin: NO rash, NO itching, NO sores, NO moles HEENT: NO Trauma, NO nausea, NO vomiting, NO visual changes, NO blurry vision, NO double vision, NO tinnitus, NO vertigo, NO ear discharge, NO rhinorrhea, NO stuffiness, NO sneezing, NO allergy, NO epistaxis. NO Hoarseness, NO sore throat, NO swollen neck. Cardiac: NO Palpitations, NO dyspnea on exertion, NO orthopnea, NO paroxysmal nocturnal dyspnea, NO edema Respiratory: YES Shortness of Breath, NO Wheezing, YES Cough, YES Sputum, NO hemoptysis GI:NO appetite, NO nausea, NO vomiting, NO dysphagia, NO changes in bowel frequency, NO stool color, NO diarrhea, NO constipation, NO hemetemesis, NO hemorrhoids, NO melena, NO hematechezia, NO abdominal pain, NO jaundice Renal: NO frequency, NO hesitancy, NO urgency, NO hematuria, NO nocturia, NO incontinence MSK: NO muscle weakness, NO gout, NO arthritis, NO muscle stiffness Neuro: NO headaches, NO tremors, NO weakness, NO paralysis, NO seizures, NO loss of consciousness, NO numbness. Hem: NO anemia, NO easy bruising/bleeding, NO petechiae, NO purpura Endo: NO heat/cold intolerance, NO excessive sweating, NO polyuria, NO polydipsia, NO polyphagia, NO thyroid problems, NO diabetes Pysch: NO mood, NO anxiety, NO depression Exam Vital Signs Temp Pulse Resp BP Pulse Ox O2 Del Method O2 Flow Rate 97.4 F 105 H 26 H 159/94 H 96 Nasal Cannula 25 10/15/24 16:18 10/15/24 20:00 10/15/24 20:00 10/15/24 20:00 10/15/24 20:00 10/15/24 18:39 10/15/24 19:02 FiO2 100 10/15/24 19:02 Narrative Exam General Appearance: Alert & Oriented X3, well-nourished male who is lying in bed in mild HEENT: Skull symmetrical and atraumatic. Conjunctivae pin and moist. Pupils equal, round, reactive to light and accommodation (PERRL). External ear without lesion or discharge. Straight, nares patient, mucosa pink, no discharge. No thyroid nodule appreciated. No cervical lymphadenopathy. Cardio: Normal Rate and Rhythm with S1 and S2 heart sounds. No murmurs or extra heart sounds auscultated. No bruits on carotid auscultation. No peripheral edema or cyanosis. Lungs: Symmetric with good expansion. Chest and back non-tender. Decreased breath sounds, increased work of breathing, no accessory muscles noted, and rhonchi noted bilaterally. Abdomen: Non-tender, Non-distended, Normal Reactive Bowel Sounds, No supr-pubic tenderness Neuro: Alert, cooperative, oriented to person, place, and time. Speech clear. CN grossly intact. Upper motor strength 5/5 and Lower motor strength 5/5. Sensation intact. Results: Labs 10/15/24 14:00 10/15/24 14:00 Labs: Short CBC 10/15/24 Range/Units 14:00 WBC 11.7 H (3.8-10.6) Thou/mm3 Hgb 9.2 L (13.5-16.0) g/dL Hct 29.0 L (41.0-53.0) % Plt Count 409 D (140-440) Thou/mm3 BMP 10/15/24 14:00 Sodium 137 Potassium 3.9 Chloride 104 Carbon Dioxide 28.1 BUN 26 H Creatinine 1.1 Glucose 127 H Calcium 9.2 Cardiac Enzymes 10/15/24 10/15/24 Range/Units 14:00 18:00 Troponin I 1.100 H* 0.800 H* D (0.0-0.045) ng/mL Liver Function 10/15/24 Range/Units 14:00 Total Bilirubin 0.3 (0.3-1.2) mg/dL AST 17 (0-34) U/L ALT 20 (10-49) U/L Alkaline Phosphatase 106 (46-116) U/L Albumin 3.9 (3.4-4.8) gm/dL Urine 10/15/24 Range/Units 16:20 Urine Color Lt-Yellow (Lt Yel-Yel) Urine Clarity Hazy (Clear/Hazy) Urine pH 6.0 (5.0-7.0) Ur Specific [place] 1.020 (1.001-1.035) Urine Protein 3+ A (Neg - Trace) Urine Glucose (UA) Negative (Negative) Quality Measures Quality Measures VTE prophylaxis Medications Home Medications and Allergies Home Medications ?Medication ?Instructions ?Recorded ?Confirmed ?Type alprazolam 0.25 mg tablet 0.25 mg PO Q12HR PRN Anxiety 10/15/24 10/15/24 History amoxicillin 875 mg-potassium 1 tab PO BID 10/15/24 10/15/24 History clavulanate 125 mg tablet apixaban 2.5 mg tablet (Eliquis) 2.5 mg PO BID 10/15/24 10/15/24 History ascorbic acid (vitamin C) 500 mg 500 mg PO QDAY 10/15/24 10/15/24 History tablet bisacodyl 10 mg rectal suppository 10 mg MD QDAY PRN Constipation 10/15/24 10/15/24 History (Dulcolax (bisacodyl)) calcium carbonate 600 mg PO TID 10/15/24 10/15/24 History gabapentin 100 mg tablet 100 mg PO BID 10/15/24 10/15/24 History glipizide 5 mg tablet 5 mg PO QDAY 10/15/24 10/15/24 History guaifenesin 50 mg/5 mL oral liquid 200 mg PO Q4H PRN Secretions 10/15/24 10/15/24 History hydrocodone 5 mg-acetaminophen 325 1 tab PO Q12HR PRN Moderate Pain 10/15/24 10/15/24 History mg tablet (Scale Score 5-6) insulin aspart U-100 100 unit/mL See Rx Instructions .Route 10/15/24 10/15/24 History subcutaneous solution .COMPLEX PRN Hyperglycemia insulin glargine 100 unit/mL (3 10 unit subcut QAM 10/15/24 10/15/24 History mL) subcutaneous pen (Lantus Solostar U-100 Insulin) lactobacillus combination no.4 3 3,000 mmu cells PO QDAY 10/15/24 10/15/24 History billion cell capsule (Probiotic) magnesium hydroxide 400 mg/5 mL 30 ml PO Q72H PRN Constipation 10/15/24 10/15/24 History oral suspension (Milk of Magnesia) prednisone 20 mg tablet 20 mg PO QDAY 10/15/24 10/15/24 History sodium phosphates 19 gram-7 118 ml MD Q72H PRN Constipation 10/15/24 10/15/24 History gram/118 mL enema (Fleet Enema) zinc 10 mg tablet 10 mg PO QDAY 10/15/24 10/15/24 History Allergies Allergy/AdvReac Type Severity Reaction Status Date / Time No Known Allergies Allergy Verified 09/22/24 03:47 Visit Medications Acetaminophen (Acetaminophen 325 Mg Tablet) 650 mg PO Q6HR PRN PRN Reason: Mild Pain 1-3 or Fever >100.3 Stop: 11/14/24 20:46 Atorvastatin Calcium (Atorvastatin Calcium 20 Mg Tablet) 40 mg PO HS JAZMÍN Stop: 11/14/24 20:59 Dextrose (Dextrose 50%-Water Inj 50 Ml Syringe) 25 ml IV Q15MIN PRN PRN Reason: BG 50-70 responsive npo pt Stop: 11/14/24 20:30 Dextrose (Dextrose 50%-Water Inj 50 Ml Syringe) 50 ml IV Q15MIN PRN PRN Reason: BG <50 OR BG <70 & pt unresponsive Stop: 11/14/24 20:30 Furosemide (Furosemide Inj 10 Mg/Ml 4ml Vial) 40 mg IVP BID JAZMÍN Stop: 11/15/24 08:59 Glucagon (Glucagon Inj 1 Mg Vial) 1 mg IM Q15MIN PRN PRN Reason: BG <70, and no IV access Heparin Sodium/Dextrose (Heparin In D5w Ivpb) 25,000 unit in 250 mls @ 10 mls/hr IV .Q24H JAZMÍN; Protocol Stop: 10/29/24 16:44 Last Admin: 10/15/24 17:11 Dose: 11.603 units/kg/hr, 10 mls/hr Cefepime HCl 2 gm/ Sodium (Chloride) 50 mls @ 100 mls/hr IV Q8HR [facility] Stop: 10/22/24 20:21 Last Admin: 10/15/24 20:25 Dose: 100 mls/hr Insulin Glargine (Insulin Glargine (Lantus) 5 Unit/0.05 Ml (Per 5 Units)) 10 unit SC HS [facility] Stop: 11/14/24 20:59 Insulin Human Lispro (Insulin Lispro (Admelog) 1 Unit/0.01 Ml Unit) 0 unit SC ACHS [facility]; Protocol Stop: 11/14/24 20:59 Lorazepam (Lorazepam 2 Mg/Ml Vial) 0.5 mg IVP BID PRN PRN Reason: ANXIETY Stop: 10/20/24 20:59 Last Admin: 10/15/24 18:53 Dose: 0.5 mg Discontinued Medications Albuterol (Albuterol Rt 2.5 Mg/3 Ml Nebu) 2.5 mg INH X1 ONE Stop: 10/15/24 13:50 Last Admin: 10/15/24 14:01 Dose: 2.5 mg Furosemide (Furosemide Inj 10 Mg/Ml 4ml Vial) 40 mg IVP X1 ONE Stop: 10/15/24 16:00 Last Admin: 10/15/24 16:07 Dose: 40 mg Furosemide (Furosemide Inj 10 Mg/Ml 4ml Vial) 40 mg IVP QDAY [facility] Stop: 11/15/24 08:59 Guaifenesin (Guaifenesin/P-Ephed Tablet) 1 tab PO X1 ONE Stop: 10/15/24 20:57 Heparin Sodium (Porcine) (Heparin Sod Inj 5000 Unit/Ml Vial) 4,000 unit IV X1 ONE; Protocol Stop: 10/15/24 16:40 Last Admin: 10/15/24 17:09 Dose: 4,000 unit Sodium Chloride (Ns) 1,000 mls @ 999 mls/hr IV .Q1H1M ONE Stop: 10/15/24 14:48 Last Infusion: 10/15/24 15:00 Dose: Infused Prednisone (Prednisone 20 Mg Tablet) 60 mg PO X1 ONE Stop: 10/15/24 13:49 Last Admin: 10/15/24 14:03 Dose: 60 mg Sodium Chloride (Sodium Cl Rt Kaylyn 3% 4 Ml Nebu (Non-Formulary)) 4 ml INH X1 ONE Stop: 10/15/24 20:58 Assessment & Plan Plan Patient is a 64-year-old male with a past medical history of hypertension, hyperlipidemia, diabetes mellitus type 2 insulin-dependent and a recent history of BKA who was admitted on 10/15/2024 for acute respiratory failure and sepsis secondary to community acquired pneumonia. #Acute Respiratory Failure #Sepsis Secondary to Pneumonia #Community Acquired Pneumonia Etiology: On admission, patient met sepsis criteria given tachycardia, tachypnea, and elevated WBC with source of infection as pneumonia. Stated symptoms of subject fevers, chills and rhonchi heard on physical exam bilaterally. Likely community acquired pneumonia given discharge from hospital has been greater than 48 hours but aspiration pneumonia can not be ruled out given recent history of ICU upgrade secondary to aspiration pneumonia. DDx: Acute dyspnea likely complicated by PE found on CTA vs PR less likely given no chest complains, No ST elevation on EKG w/ positive troponins that have down trended. Diagnostic Tests: Vitals T 97.8, HR 114, RR 28, BP 159/109, SpO2 84% RA WBC 11.7 Hgb 9.2, Hct 29.0 MCV 89 EKG sinus Tachy w/ PVC Cxr (10/15/2024): Moderate CHF, prominent vascular congestion w/ perihilar edema, and consider superimposed pneumonia right base CTA (10/15/2024): Moderate CHF. Positive for small bilateral pulmonary artery emboli, right upper lobe and right lower lobe pulmonary artery branches. Plan -Cefepime 2 mg IV Q8HR (--) -Acetaminophen 650 mg PRN Q6HR -Blood Culture -MRSA -Sputum Culture -CBC -CMP -ABG -NC--->High flow, bipap contraindicated due to PE. -Aspiration Precautions -Swallow Screen -Swallow Evaluation #New Congestive Heart Failure #Troponemia, likely NSTEMI type II #Hyperlipidemia Etiology: Pulmonary edema noted on CTA with elevated BNP >3280. Patient denied previous cardiac history of CHF or previous PR. Likely new onset of CHF exacerbation begin PE and pneumonia. Consider thoracentesis. DDx: Pulmonary edema likely worsened by pneumonia vs Malignancy less likely as patient denied weight change or history of smoking vs pneumothorax less likely. Previous A1c 6.7 (09/20/2024) Troponin 1.100, 0.800 BNP>3280 EKG sinus Tachy w/ PVC Cxr (10/15/2024): Moderate CHF, prominent vascular congestion w/ perihilar edema, and consider superimposed pneumonia right base CTA (10/15/2024): Moderate CHF. Positive for small bilateral pulmonary artery emboli, right upper lobe and right lower lobe pulmonary artery branches. NYHA Class: II Plan: -ER Lasix 40 mg IV X 1 -Lasix 40 mg IV BID -Trending troponins. -Echo -TSH -K>4 and Mg >2 -Fluid Restriction 1800 ml per day -SpO <90%, support PRN -->currently on highflow -Daily Weights, Strict Ins and Outs -Cardiology Consult, appreciate recommendations. #Pulmonary Embolism, likely provoked Etiology: Pulmonary embolism likely provoked given recent history of BKA. DDx Less likely secondary to malignancy vs given recent surgery less likely secondary to air embolism Diagnostic: CTA (10/15/2024): Moderate CHF. Positive for small bilateral pulmonary artery emboli, right upper lobe and right lower lobe pulmonary artery branches. Plan -Heparin drip by weight #UTI likely secondary to decrease mobility and history of Diabetes Mellitus UA: Protiens +3, WBC 80, Esterase Positive Plan -Urine culture -Cefepime 2 mg IV Q8HR (10/15/2024--) #HTN Resume home medication, amlodipine 5 mg . #Diabetes Mellitus Type 2, insulin Dependent Previous non-adherence to medication, can not recall how much Lantus he takes. Previous A1c of 6.7 Plan -Lantus 10 units HS -Sliding Scale (elderly) -Follow Fasting glucose AM -consider new A1c and new lipid panel. Health Maintenance: Disp: Pt is currently admitted to floors for further management of sepsis secondary to pneumonia and new CHF exacerbation, awaiting blood cultures, urine cultures, and echo. FEN: Cardiac, low consistent, hold until patient is seen for a swallow evaluation. DVT: on Heparin Drip Code: Full Code - The patient's plan was discussed with attending Dr. Colette Archuleta MD PGY1 Internal Medicine
--- NOTE | 2024-10-15 21:01 | PC.NURSE ---
PATIENT PLACED ON OXY MASK AT 10L PRIOR TO TRANSFER FOR TRIAL BASIS. WHILE ALL EQUIPMENT IS PREPARED FOR TRANSFER. PATIENT REMAINS AT 96% WITH NO WORK OF BREATHING. PATIENT OXYGEN CHANGED TO 15L ON OXY MASK PRIOR TO TRANSFER TO ROOM 263 TO ENSURE PATIENTS COMFORT. PATIENT IS MOUTH BREATHER, DENIES SOB AT THIS TIME AND THERE IS NO DISTRESS NOTED.
--- NOTE | 2024-10-15 21:20 | PC.NURSE ---
Rn writing was asked by charge nurse to transport pt to 264. Rn met primary nurse who was on her way to transport pt, in ER [address],and Rn began transport with ROOM SERVICE CLERK via gurney. Pt was noted to be on Oxymask 15L and time of transport and sating 93%. Pt was did not appear to be in any respiratory distress at time. While transporting pt, Rn transporting noted pt oxygen sats were beginning to drop sats at (90%), and work of breathing increasing, and pt becoming diaphoretic. Rn called ER Rt ([facility]) who met RN at elevators. Rn continued transport to telemetry floor with RT following. Arrived to pt's room and receiving Rn was at bedside. Rn and RT assisted on moving pt to bed while pt still on monitor. Care was handed to Pepe García.
--- NOTE | 2024-10-15 21:25 | PC.NURSE ---
Patient received from ED on 2L NC O2 80%, diaphoretic using accessory muscles. RT at bedside placed patient back on High Flow 30L 100%. Patient only able to speak 1-2 words at a time. Charge nurse notified of patients condition. Patient has wounds to ebenezer lower legs, pictures taken and Dr Smith notified. Pt too unstable to check back side for wounds at this time.
[2024-10-15 21:32] LABS: Base Excess -3 (-3-3); HCO3 26 mEq/L (20-26); Inspired Oxygen, FIO2 100 %; O2 Saturation 90 % (91-98); PCO2 63 mmHg (32.0-48.0); PO2 65 mmHg (83-108); pH, Arterial 7.22 (7.35-7.45)
[2024-10-15 21:38] LABS: Allen Test Performed/OK; Puncture Site Right Radial
--- NOTE | 2024-10-15 21:44 | PC.NURSE ---
RESEARCH PROFESSIONAL called for increased work of breathing, respiratory rate in 40's, diaphoretic. Patient already on high Flow 30L 100%. New orders received and carried out.
--- NOTE | 2024-10-15 21:51 | XR_ITS ---
Examination: AP chest single view Technique one AP portable upright chest single view Exam date and time: October 15, 2024 1009 hrs. Comparison October 15, 2024 1416 hrs. Indications: Increasing SOB today. Findings: Significant CHF Enlarged cardiac contour with prominent vascular congestion Perihilar edema Probable superimposed pneumonia in both lungs especially right base Impression: Prominent CHF Probable superimposed pneumonia both lungs especially right base
[2024-10-15] MEDS: FUROSEMIDE INJ 10 MG/ML 4ML VIAL 40 MG (21:57)
--- NOTE | 2024-10-15 22:11 | EVENTNT_ITS ---
<Statement entered by Olaf Alvarenga MD - 10/16/24 02:07> I was present for the essential components of the history, physical examination, diagnosis, and treatment plan with the resident. I have reviewed the documentation, discussed the case with the resident and agree with the patient's care as documented by the resident. Olaf Alvarenga MD Documentation for date of: 10/15/24 Event Note Event Note: Rapid Response Rapid Response called at approximately 21:44 PM for tachypnea w/ a RR greater than >36. Patient protecting airway, increased work of breathing-patient was taken off high-flow from ER to floors transfer, and left pulse intact. Rhonchi and possible wheezing appreciated on physical exam. Vitals: T 97.4, BP 159/94, HR 105, RR 26, SpO2 96% intervention: 40 mg IV X 1 and Cxr - The patient's plan was discussed with attending Dr. Colette Archuleta MD PGY1 Internal Medicine
[2024-10-15] MEDS: INSULIN LISPRO (AdmeLOG) 1 UNIT/0.01 ML UNIT SC (22:12)
[2024-10-15] MEDS: INSULIN GLARGINE (Lantus) 5 UNIT/0.05 ML (PER 5 UNITS) 10 UNIT SC (22:12)
[2024-10-15] MEDS: SODIUM CHLORIDE RT 10% 15 ML NEBU 5 ML INH (23:44)
[2024-10-16] VITALS (20 sets, daily range): BP systolic 135–152; BP diastolic 80–104; PULSE 102–118; RESP 16–32; TEMP 36.4–36.7; O2SAT 95–99; BMI 25.0
[2024-10-16 00:18] LABS: Partial Thromboplastin Time 34.3 Seconds (22.0-36.0)
[2024-10-16] MEDS: HEPARIN SOD INJ 5000 UNIT/ML VIAL 4000 UNIT IV (01:11)
[2024-10-16 01:48] LABS: Base Excess 0 (-3-3); HCO3 25 mEq/L (20-26); Inspired Oxygen, FIO2 70 %; O2 Saturation 95 % (91-98); PCO2 45 mmHg (32.0-48.0); PO2 69 mmHg (83-108); pH, Arterial 7.36 (7.35-7.45)
[2024-10-16 01:49] LABS: Allen Test Performed/OK; Puncture Site Right Radial
[2024-10-16] MEDS: CEFEPIME INJ 2 GM in SODIUM CHLORIDE 0.9% (P) 50 ML IV ×3 (05:35→21:39)
[2024-10-16 06:02] LABS: Basophils % (Auto) 0 % (0-2.5); Eosinophils % (Auto) 0 % (0-10); Hematocrit 26.7 % (41.0-53.0); Immature Granulocytes % (Auto) 1 % (0-0); Immature Granulocytes Auto 0.07 Thou/mm3 (0.00-0.00); Lymphocytes # (Auto) 0.7 Thou/mm3 (1.0-4.8); Lymphocytes % (Auto) 6 % (10-50); Mean Corpuscular HGB Conc 31.5 g/dl (31.0-37.0); Mean Corpuscular Hemoglobin 28.2 pg (25.0-35.0); Mean Corpuscular Volume 90 fL (80-100); Monocytes # (Auto) 0.6 Thou/mm3 (0.0-0.8); Monocytes % (Auto) 5 % (0-12); Neutrophils # (Auto) 10.1 Thou/mm3 (1.8-7.7); Neutrophils % (Auto) 89 % (37-80); Nucleated Red Blood Cell % 0 /100 WBC (0); Platelet Count 313 Thou/mm3 (140-440); RDW Standard Deviation 52.3 fL (35.1-43.9); Red Blood Count 2.98 Miln/mm3 (4.50-5.90); White Blood Count 11.4 Thou/mm3 (3.8-10.6)
[2024-10-16 06:08] LABS: Hemoglobin 8.4 g/dL (13.5-16.0)
[2024-10-16 06:32] LABS: Alanine Aminotransferase 15 U/L (10-49); Albumin, Serum 3.4 gm/dL (3.4-4.8); Albumin/Globulin Ratio 1.3 (1.2-2.2); Alkaline Phosphatase 91 U/L (46-116); Anion Gap 8 (7-16); Aspartate Amino Transferase 13 U/L (0-34); BUN/Creatinine Ratio 24 Ratio (12-20); Bilirubin,Total 0.2 mg/dL (0.3-1.2); Blood Urea Nitrogen 26 mg/dL (9-23); Calcium 8.9 mg/dL (8.3-10.6); Calcium (Corrected) 9.4 mg/dL (8.5-10.1); Carbon Dioxide 24.3 mMol/L (20.0-31.0); Chloride 106 mMol/L (98-107); Creatinine (Component) 1.1 mg/dL (0.6-1.3); Estimated Creatinine Clearance 77.7 mL/min (>60); Globulin 2.7 gm/dL (2.3-3.5); Glucose 178 mg/dL (74-106); Magnesium 1.1 mg/dL (1.6-2.6); Osmolality,Calculated 284 (275-295); Phosphorous 4.4 mg/dL (2.4-5.1); Potassium 4.1 mMol/L (3.4-5.1); Sodium 138 mMol/L (136-145); Thyroid Stimulating Hormone 0.55 uIU/mL (0.55-4.78); Total Protein 6.1 gm/dL (5.7-8.2); eGFR > 60 See Note
[2024-10-16] MEDS: INSULIN LISPRO (AdmeLOG) 1 UNIT/0.01 ML UNIT SC ×4 (07:43→20:10)
[2024-10-16] MEDS: FUROSEMIDE INJ 10 MG/ML 4ML VIAL 40 MG IVP (08:09)
[2024-10-16] MEDS: Magnesium Sulfate 4 GM Ivpb 4 GM/50 ML BAG IV ×2 (08:22→15:03)
--- NOTE | 2024-10-16 08:22 | EKG_ITS ---
[facility] Test Date: 2024-10-16 Pat Name: EDDIE LAMBERT Department: Room: S264A Gender: Male [employer]: JOEL : 1960 Requested By: Celestino Pastrana Order Number: [id number] Reading MD: Celestino Pastrana Measurements Intervals [place] Rate: 111 P: 41 HI: 179 QRS: 38 QRSD: 91 T: 213 QT: 337 QTc: 459 Interpretive Statements SINUS TACHYCARDIA WITH OCCASIONAL SUPRAVENTRICULAR PREMATURE COMPLEXES POSSIBLE LEFT ATRIAL ENLARGEMENT POSSIBLE ANTERIOR MYOCARDIAL INFARCTION , OF INDETERMINATE AGE Compared to ECG 10/15/2024 14:20:15 Myocardial infarct finding now present Atrial flutter no longer present T-wave abnormality no longer present /store/S0/[id number].pdf
[2024-10-16 08:56] LABS: Partial Thromboplastin Time 63.2 Seconds (22.0-36.0)
[2024-10-16] MEDS: LEVALBUTEROL RT 0.31 MG/3 ML NEBU INH ×3 (09:13→23:12)
--- NOTE | 2024-10-16 09:14 | PCS.ST ---
ST eval completed, recommend continue regular food and liquids. Please reorder ST with any changes in swallowing.
--- NOTE | 2024-10-16 10:24 | XR_ITS ---
Examination: Ultrasound right hemithorax Ultrasound left hemithorax Exam date and time: October 16, 2024 1045 hrs. Indications: Shortness of breath 4 days, pleural disease on chest film yesterday Technique And Findings: Multiple high resolution sonographic images right and left hemithoraces Significant bilateral pleural fluid Impression: Significant bilateral pleural effusions
--- NOTE | 2024-10-16 12:38 | PC.SS ---
Rounding: Pt on Heprin Drip
--- NOTE | 2024-10-16 13:52 | ESPR_ITS ---
Documentation for date of: 10/16/24 Subjective Subjective Interval history: 10/16/2024: Patient is overnight admitted secondary to new CHF exacerbation; also found to have possible right upper lobe and right lower lobe pulmonary embolism and possible underlying right base pneumonia. Patient seen and examined in hospital bed; patient had rapid response called earlier due to desaturation during transfer from ED to hospital for (did not have high flow nasal cannula at the time of transfer). Patient currently satting 100 on high flow nasal cannula and denies having overt shortness of breath; he also denies having any chest pain or palpitations. Dr. Ledezma, cardiology, was consulted regarding the patient and the recommendation is to diurese aggressively as the patient appears to be in overt heart failure. Troponin elevation likely secondary to demand ischemia at this time; patient denies having any chest pain and troponin is mildly elevated without any significant EKG changes. Patient can also benefit from a right sided thoracentesis ultrasound/ct guided with IR team; orders regarding cytology and pleural fluid studies have been ordered. Patient also had severely depleted magnesium storage; repleted and we will repeat labs. Exam Vital Signs Temp Pulse Resp BP Pulse Ox O2 Del Method O2 Flow Rate 97.7 F 110 H 22 H 152/92 H 97 High Flow Nasal Cannula 30 10/16/24 12:00 10/16/24 12:00 10/16/24 12:00 10/16/24 12:00 10/16/24 12:00 10/16/24 12:00 10/16/24 12:00 FiO2 70 10/16/24 12:00 Narrative Exam Physical Exam: GENERAL: On high flow nasal cannula, in mild respiratory distress, answering questions appropriately, appears older than stated age HEENT: NC/AT. Moist mucosa. PERRLA/EOMI. CARDIO: Heart RRR, no obvious murmurs, no JVD. PULM: Wheezing noted bilaterally both upper and lower lung [place]; no crackles/Rales/rhonchi GI: Abdomen soft, NT/ND, +BS. URO/AUTOMATIC ENGRAVER: +Azevedo catheter SKIN/MSK/EXT: Nonpitting edema noted lower extremities. No wounds/discoloration/rashes/amputations. +Pedal pulses present B/L. 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, automatic data processing planner strength 5/5, Moves extremities x4. Objective Labs 10/16/24 04:57 10/16/24 04:57 Labs: Laboratory Results - last 24 hr 10/15/24 10/15/24 10/15/24 14:00 16:20 18:00 WBC 11.7 H RBC 3.26 L Hgb 9.2 L Hct 29.0 L MCV 89 MCH 28.2 MCHC 31.7 RDW Std Deviation 52.4 H Plt Count 409 D Neut % (Auto) 82 H Lymph % (Auto) 8 L [place] % (Auto) 8 Eos % (Auto) 0 Baso % (Auto) 1 Neut # (Auto) 9.7 H Lymph # (Auto) 0.9 L [place] # (Auto) 1.0 H Eos # (Auto) 0.0 Baso # (Auto) 0.1 Immature Gran # (Auto) 0.09 H Absolute Nucleated RBC 0.00 Immature Gran % 1 H Nucleated RBC % 0 PT 11.1 INR 1.0 APTT 27.9 Puncture Site ABG pH ABG pCO2 ABG pO2 ABG HCO3 ABG O2 Saturation ABG Base Excess FiO2 Sodium 137 Potassium 3.9 Chloride 104 Carbon Dioxide 28.1 Anion Gap 5 L BUN 26 H Creatinine 1.1 Estim Creat Clear Calc 77.7 eGFR > 60 BUN/Creatinine Ratio 24 H Glucose 127 H Calculated Osmolality 280 Lactic Acid 1.2 Calcium 9.2 Corrected Calcium 9.3 Phosphorus Magnesium Total Bilirubin 0.3 AST 17 ALT 20 Alkaline Phosphatase 106 Troponin I 1.100 H* 0.800 H* D B-Natriuretic Peptide > 3280 H* Total Protein 6.8 Albumin 3.9 Globulin 2.9 Albumin/Globulin Ratio 1.3 Procalcitonin 0.24 TSH Ur Collection Type Clean Catch Urine Color Lt-Yellow Urine Clarity Hazy Urine pH 6.0 Ur Specific [place] 1.020 Urine Protein 3+ A Urine Glucose (UA) Negative Urine Ketones Negative Urine Blood Trace Urine Nitrite Negative Urine Bilirubin Negative Urine Urobilinogen (Auto) Negative Ur Leukocyte Esterase Positive Urine RBC 5 H Urine WBC 80 H Ur Squamous Epith Cells 0 Urine Bacteria None 10/15/24 10/15/24 10/16/24 21:23 23:30 01:16 WBC RBC Hgb Hct MCV MCH MCHC RDW Std Deviation Plt Count Neut % (Auto) Lymph % (Auto) [place] % (Auto) Eos % (Auto) Baso % (Auto) Neut # (Auto) Lymph # (Auto) [place] # (Auto) Eos # (Auto) Baso # (Auto) Immature Gran # (Auto) Absolute Nucleated RBC Immature Gran % Nucleated RBC % PT INR APTT 34.3 Puncture Site Right Radial ABG pH 7.22 L ABG pCO2 63 H ABG pO2 65 L ABG HCO3 26 ABG O2 Saturation 90 L ABG Base Excess -3 FiO2 100 Sodium Potassium Chloride Carbon Dioxide Anion Gap BUN Creatinine Estim Creat Clear Calc eGFR BUN/Creatinine Ratio Glucose Calculated Osmolality Lactic Acid Calcium Corrected Calcium Phosphorus Magnesium Total Bilirubin AST ALT Alkaline Phosphatase Troponin I 0.830 H* B-Natriuretic Peptide Total Protein Albumin Globulin Albumin/Globulin Ratio Procalcitonin TSH Ur Collection Type Urine Color Urine Clarity Urine pH Ur Specific [place] Urine Protein Urine Glucose (UA) Urine Ketones Urine Blood Urine Nitrite Urine Bilirubin Urine Urobilinogen (Auto) Ur Leukocyte Esterase Urine RBC Urine WBC Ur Squamous Epith Cells Urine Bacteria 10/16/24 10/16/24 10/16/24 01:41 04:57 07:16 WBC 11.4 H RBC 2.98 L Hgb 8.4 L Hct 26.7 L MCV 90 MCH 28.2 MCHC 31.5 RDW Std Deviation 52.3 H Plt Count 313 D Neut % (Auto) 89 H Lymph % (Auto) 6 L [place] % (Auto) 5 Eos % (Auto) 0 Baso % (Auto) 0 Neut # (Auto) 10.1 H Lymph # (Auto) 0.7 L [place] # (Auto) 0.6 Eos # (Auto) 0.0 Baso # (Auto) 0.0 Immature Gran # (Auto) 0.07 H Absolute Nucleated RBC 0.00 Immature Gran % 1 H Nucleated RBC % 0 PT INR APTT 63.2 H D Puncture Site Right Radial ABG pH 7.36 D ABG pCO2 45 D ABG pO2 69 L ABG HCO3 25 ABG O2 Saturation 95 ABG Base Excess 0 FiO2 70 Sodium 138 Potassium 4.1 Chloride 106 Carbon Dioxide 24.3 Anion Gap 8 BUN 26 H Creatinine 1.1 Estim Creat Clear Calc 77.7 eGFR > 60 BUN/Creatinine Ratio 24 H Glucose 178 H D Calculated Osmolality 284 Lactic Acid Calcium 8.9 Corrected Calcium 9.4 Phosphorus 4.4 Magnesium 1.1 L Total Bilirubin 0.2 L AST 13 ALT 15 Alkaline Phosphatase 91 Troponin I B-Natriuretic Peptide Total Protein 6.1 Albumin 3.4 D Globulin 2.7 Albumin/Globulin Ratio 1.3 Procalcitonin TSH 0.55 Ur Collection Type Urine Color Urine Clarity Urine pH Ur Specific [place] Urine Protein Urine Glucose (UA) Urine Ketones Urine Blood Urine Nitrite Urine Bilirubin Urine Urobilinogen (Auto) Ur Leukocyte Esterase Urine RBC Urine WBC Ur Squamous Epith Cells Urine Bacteria ABG Interpretation ABG results: 10/15/24 10/16/24 21:23 01:41 ABG pH 7.22 L 7.36 D ABG pCO2 63 H 45 D ABG pO2 65 L 69 L ABG HCO3 26 25 ABG O2 Saturation 90 L 95 ABG Base Excess -3 0 Quality Measures Quality Measures VTE prophylaxis Assessment & Plan Assessment Current Active Medications: Generic Name Dose Route Start Last Admin Trade Name Freq PRN Reason Stop Dose Admin Acetaminophen 650 mg 10/15/24 20:47 Acetaminophen 325 Mg Tablet PO 11/14/24 20:46 Q6HR PRN Mild Pain 1-3 or Fever >100.3 Amlodipine Besylate 5 mg 10/15/24 21:00 10/15/24 22:09 Amlodipine Besylate 5 Mg Tablet PO 11/14/24 20:59 Not Given HS JAZMÍN Atorvastatin Calcium 40 mg 10/15/24 21:00 10/15/24 22:10 Atorvastatin Calcium 20 Mg Tablet PO 11/14/24 20:59 Not Given HS JAZMÍN Bumetanide 2 mg 10/16/24 12:30 Bumetanide Inj 0.25 Mg/Ml Vial 4 Ml IVP 11/15/24 12:29 BID JAZMÍN Dextrose 25 ml 10/15/24 20:31 Dextrose 50%-Water Inj 50 Ml Syringe IV 11/14/24 20:30 Q15MIN PRN BG 50-70 responsive npo pt Dextrose 50 ml 10/15/24 20:31 Dextrose 50%-Water Inj 50 Ml Syringe IV 11/14/24 20:30 Q15MIN PRN BG <50 OR BG <70 & pt unresponsive Glucagon 1 mg 10/15/24 20:31 Glucagon Inj 1 Mg Vial IM Q15MIN PRN BG <70, and no IV access Heparin Sodium/Dextrose 25,000 unit in 250 mls @ 10 mls/hr 10/15/24 16:45 10/16/24 10:23 Heparin In D5w Ivpb IV 10/29/24 16:44 15.6 units/kg/hr .Q24H JAZMÍN 13.445 mls/hr Titration Protocol 11.603 UNITS/KG/HR Cefepime HCl 2 gm/ Sodium 50 mls @ 100 mls/hr 10/15/24 20:22 10/16/24 05:35 Chloride IV 10/22/24 20:21 100 mls/hr Q8HR JAZMÍN Administration Magnesium Sulfate 4 gm in 50 mls @ 12.5 mls/hr 10/16/24 13:00 Magnesium Sulfate Ivpb IV 10/16/24 16:59 X1 ONE Insulin Glargine 10 unit 10/15/24 21:00 10/15/24 22:12 Insulin Glargine (Lantus) 5 Unit/0.05 Ml (Per 5 Units) SC 11/14/24 20:59 10 unit HS JAZMÍN Administration Insulin Human Lispro 0 unit 10/15/24 21:00 10/16/24 11:31 Insulin Lispro (Admelog) 1 Unit/0.01 Ml Unit SC 11/14/24 20:59 2 unit ACHS JAZMÍN Administration Protocol Levalbuterol HCl 0.31 mg 10/16/24 13:33 Levalbuterol Rt 0.31 Mg/3 Ml Nebu INH 11/15/24 13:32 Q8HR PRN WHEEZING Lorazepam 0.5 mg 10/15/24 18:33 10/15/24 18:53 Lorazepam 2 Mg/Ml Vial IVP 10/20/24 20:59 0.5 mg BID PRN Administration ANXIETY Melatonin 3 mg 10/16/24 02:15 10/16/24 02:58 Melatonin 3 Mg Tablet PO 11/15/24 02:14 Not Given HS JAZMÍN Plan 64-year-old male with a past medical history of hypertension, hyperlipidemia, diabetes mellitus type 2 insulin-dependent and a recent history of BKA who was admitted on 10/15/2024 for acute respiratory failure and sepsis secondary to community acquired pneumonia. #Acute Respiratory Failure Likely secondary to new CHF exacerbation versus right base pneumonia or bilateral pulmonary embolism; multifactorial Patient [facility] with shortness of breath which started on 10/14 and has progressively worsened In the ED, patient met 3 out of 4 SIRS criteria; HR 114, RR 28, WBC 11.7 ABG: ABG 7.44, pCO2 38, pO 115 Troponin 1.100, 0.800 BNP>3280 EKG sinus tachycardia with irregular RR intervals; P waves present Chest x-ray 10/15 shows: moderate CHF, prominent vascular congestion w/perihilar edema, and superimposed pneumonia right base CTA 10/15 shows: moderate CHF. Positive for small bilateral pulmonary artery emboli, right upper lobe and right lower lobe pulmonary artery branches. Plan: Continue high flow nasal cannula Levalbuterol q8h scheduled Plan for right-sided ultrasound/CT-guided thoracentesis for pleural effusion Follow-up on pleural fluid analysis and cytology Continue cefepime 2 mg IV every 8 Pending cultures, blood and sputum Aspiration Precautions Speech eval #New Congestive Heart Failure #NSTEMI type II #Hyperlipidemia ASCVD risk of 19.6% in next 10 years; High-intensity statin recommended because of known diabetes Patient does not follow cardiology outpatient; does not have history of heart disease Patient denies having any chest pain at this time Troponin, BNP and EKG findings as stated above Imaging studies as stated above Cardiology, Dr. 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 Patient presented hypoxic with tachycardia as noted above CTA confirmed presence of suspected bilateral pulmonary embolism; cardiology doubts at this time and attributes respiratory failure to overt heart failure instead Plan: Continue heparin drip #History of hypertension Patient on home amlodipine 5 mg Plan: Continue home medication #Insulin-dependent type 2 diabetes Previous non-adherence to medication A1c 6.7 on 09/23/2024 Plan Lantus 10 units HS Continue sliding scale insulin Health Maintenance: Lines: PIV, Azevedo Bowel: Senna as needed Diet: Cardiac GI prophylaxis: Not needed DVT prophylaxis: Heparin drip Dispo: Aggressive diuresis for suspected acute CHF exacerbation; cardiology following Code: Full Patient seen and examined with attending Dr. Soheila Pastrana, PGY-1 Attending Provider Attestation/Addendum I have examined the patient, reviewed labs and imaging findings, discussed the case with the resident(s), and reviewed entered orders. I agree with the plan of care as outlined in this note, with these additional summaries/recommendations: Patient seen at bedside. # Acute hypoxic respiratory failure Likely multifactorial secondary to new onset CHF, bilateral small pulmonary emboli, PNA?, and pleural effusions. Continue high flow nasal cannula and wean as tolerated Minimal wheezing noted bilaterally unlikely cardiac in origin as patient has no previous history of COPD, continue breathing treatments as needed, repeat ABG reviewed # Acute CHF exacerbation # Bilateral pleural effusions No previous history of heart failure per patient Presented with shortness of breath BNP greater than 3280, chest x-ray showed prominent vascular congestion with perihilar edema, weight on admission 86.18 kg Unclear trigger for new onset CHF Echocardiogram ordered and pending Cardiology consulted, recommendations appreciated Monitor on telemetry, lipid panel, A1c, EKG as needed, TSH Strict I's and O's and fluid restriction Continue with Bumex 2 mg IV twice daily We will order IR ultrasound guided of pleural effusion and send fluid for analysis We will start goal-directed medical therapy based off echocardiogram results # Pulmonary embolism CTA chest showed small bilateral pulmonary artery emboli in right upper lobe and right lower lobe although difficult to discern on CTA. Provoked in the setting of recent BKA indicating 3 to 6 months of anticoagulation Continue heparin drip and target APTT of 60 to 80 seconds Follow-up with IR for CTA findings #?Community-acquired pneumonia Patient does endorse productive cough and has WBC count of 11.4 Chest x-ray significant for possible superimposed pneumonia right base Patient recently hospitalized Continue IV cefepime for now and follow-up blood/sputum cultures # Troponinemia Likely secondary to demand ischemia in the setting of acute hypoxic respiratory failure Troponin peaked at 1.10 No further need to trend troponin for now Continue to monitor # Diabetes mellitus type 2 09/23/24 A1C 6.7% Continue insulin sliding scale with Accu-Cheks Target blood sugar of 140-180 while hospitalized # Hypomagnesia Magnesium 1.1 and critically low on admission Given aggressive replacement and repeat level in a.m. # Primary hypertension Continue home antihypertensives as tolerated Dr. Parnell
[2024-10-16] MEDS: BUMETANIDE INJ 0.25 MG/ML VIAL 4 ML 2 MG IVP ×2 (14:10→20:14)
[2024-10-16 14:30] LABS: Magnesium 1.6 mg/dL (1.6-2.6)
[2024-10-16] MEDS: Heparin/D5w 25K 250 ML Ivpb 25,000 UNIT/250 ML BAG 13.4 UNIT IV (14:35)
[2024-10-16 16:34] LABS: Partial Thromboplastin Time 42.4 Seconds (22.0-36.0)
[2024-10-16] MEDS: HEPARIN SOD INJ 5000 UNIT/ML VIAL 2000 UNIT IV (17:45)
[2024-10-16] MEDS: INSULIN GLARGINE (Lantus) 5 UNIT/0.05 ML (PER 5 UNITS) 10 UNIT SC (20:10)
[2024-10-16] MEDS: MELATONIN 3 MG TABLET PO (20:14)
[2024-10-16] MEDS: amLODIPine BESYLATE 5 MG TABLET PO (20:14)
[2024-10-16] MEDS: ATORVASTATIN CALCIUM 20 MG TABLET 40 MG PO (20:14)
--- NOTE | 2024-10-16 22:25 | ESCONSULT_ITS ---
RE: EDDIE LAMBERT : 1960 DATE OF CONSULTATION: 10/16/2024 CONSULTING PHYSICIAN: Hospitalist and resident physician and attending physician Dr. Joon Parnell. REASON FOR CONSULTATION: Evaluation of acutely decompensated congestive heart failure. CHIEF COMPLAINT: Shortness of breath. HISTORY OF PRESENT ILLNESS: The patient is a 64-year-old male with a past medical history of severe peripheral arterial occlusive disease, hypertension, hypercholesterolemia, diabetes mellitus type 2, who had a wcraa-[id number]-tejg amputation on 09/29/2024, discharged home on 10/06/2024, at that time chest x-ray was clear, came to the hospital with severe shortness of breath for last 2 or 3 days with increasing productive cough and chills and low-grade fever increased. There is no chest pain. Initial assessment showed possible pneumonia, congestive heart failure. CT scan showed evidence of extensive bilateral pleural effusion, congestive heart failure reported as pneumonia as well, but mostly congestive heart failure. Laboratory data showed markedly elevated BNP levels of 3280. Initial troponin was mildly elevated at 1.10 and subsequently has come down to 0.83. Other lab data showed blood glucose 127, creatinine is 1.1. The rest of lab data showed white count is elevated as well initially, mildly elevated at 11.7, hemoglobin 9.2, hematocrit 29. He is feeling little better, still has severe shortness breath, appears to have acutely decompensated congestive heart failure. ALLERGIES: NONE. MEDICATIONS: Home medications reviewed. 1. The patient is on antibiotics at home. 2. Apixaban 2.5 b.i.d. and also on insulin for diabetes mellitus. 3. Presently he is started on IV diuretic Lasix 40 mg IV twice daily and also atorvastatin 40 mg daily. 4. Amlodipine 5 mg daily. 5. Bronchodilators. 6. IV antibiotics given. PAST MEDICAL HISTORY: No history of coronary artery disease. No previous myocardial infarction severe peripheral arterial disease, amputation of lower extremity pjubx-oya-cyqy amputation BKA on 09/29/2024, that time, the patient was not in heart failure. SOCIAL HISTORY: The patient is , lives with his . He does not smoke, drink alcoholic beverages. FAMILY HISTORY: Noncontributory. PHYSICAL EXAMINATION: GENERAL: Well-nourished male, alert, awake, in no acute distress. VITAL SIGNS: Stable. Blood pressure 140/80, pulse rate 100, respirations 16, temperature normal. HEENT: Head is atraumatic. Eyes: Normal. ENT: Normal. NECK: Supple. JVD is present 7-10 cm above sternal angle. CHEST: Symmetrical. LUNGS: Decreased breath sounds, bilateral extensive crackles. HEART: S1, S2, tachycardia. No gallops. ABDOMEN: Thin and soft. No organomegaly. EXTREMITIES: Showed evidence of acbpq-ifd-mget amputation, left lower extremity. Distal pulses are absent. There is also mild edema of both feet. GENITOURINARY AND RECTAL: Not performed. CONCRETE SWIMMING POOL INSTALLER: Unremarkable. DIAGNOSTIC DATA: EKG shows sinus rhythm, sinus tachycardia, nonspecific T-wave changes. No ischemia or infarction. No cardiac echo is available in the previous hospitalization. LABORATORY DATA: Showed elevated BNP levels, troponin was 1.1 peak, come down to 0.8. IMPRESSION/ASSESSMENT: 1. Acutely decompensated congestive heart failure systolic versus diastolic heart failure, HFpEF versus HFrEF. 2. Bilateral pleural effusions. 3. Status post niyrc-jon-osdf amputation. 4. Severe peripheral arterial occlusive disease. 5. Diabetes mellitus. 6. Hypertension. RECOMMENDATIONS: The patient should be aggressively treated with IV diuretic Bumex 2 mg twice daily. Monitor urine output closely. Predominantly, the patient has congestive heart failure, possibly systolic heart failure. We will get a cardiac echo for assessment of cardiomyopathy, ischemic versus nonischemic cardiomyopathy. Can also consider thoracentesis if the pleural effusion is . My impression is that the patient has predominantly heart failure. Other problems include elevated troponin level, possibly type 2 troponin elevation due to acutely decompensated heart failure and demand ischemia. We will continue to monitor troponin levels and if the patient has significant ischemia or chest pain, we will consider workup for CAD. For now, we will treat aggressively for heart failure. Cardiac echo will be obtained for assessment of systolic and diastolic function. We would like thank you for referring this patient for cardiovascular evaluation. We will be glad to follow the patient with you. DT: :29:47 TT: 20:59:00 Ref: [id number] - TID: [id number] MTDD
[2024-10-17] VITALS (13 sets, daily range): BP systolic 130–155; BP diastolic 71–94; PULSE 87–117; RESP 15–27; TEMP 36–36.8; O2SAT 89–98; BMI 25.0
[2024-10-17 01:19] LABS: Partial Thromboplastin Time 60.3 Seconds (22.0-36.0)
[2024-10-17 05:51] LABS: Basophils # (Auto) 0.1 Thou/mm3 (0.0-0.2); Basophils % (Auto) 1 % (0-2.5); Eosinophils % (Auto) 0 % (0-10); Immature Granulocytes % (Auto) 1 % (0-0); Immature Granulocytes Auto 0.07 Thou/mm3 (0.00-0.00); Lymphocytes # (Auto) 1.3 Thou/mm3 (1.0-4.8); Lymphocytes % (Auto) 12 % (10-50); Mean Corpuscular HGB Conc 31.7 g/dl (31.0-37.0); Mean Corpuscular Hemoglobin 28.1 pg (25.0-35.0); Mean Corpuscular Volume 89 fL (80-100); Monocytes % (Auto) 9 % (0-12); Neutrophils # (Auto) 8.5 Thou/mm3 (1.8-7.7); Neutrophils % (Auto) 77 % (37-80); Nucleated Red Blood Cell % 0 /100 WBC (0); Platelet Count 329 Thou/mm3 (140-440)
[2024-10-17] MEDS: CEFEPIME INJ 2 GM in SODIUM CHLORIDE 0.9% (P) 50 ML IV ×3 (05:51→21:06)
[2024-10-17 05:54] LABS: Hemoglobin 7.3 g/dL (13.5-16.0)
[2024-10-17 06:17] LABS: Partial Thromboplastin Time 56.9 Seconds (22.0-36.0); Prothrombin Time 10.5 Seconds (9.0-12.2)
[2024-10-17 06:32] LABS: Alanine Aminotransferase 11 U/L (10-49); Albumin, Serum 3.1 gm/dL (3.4-4.8); Albumin/Globulin Ratio 1.2 (1.2-2.2); Alkaline Phosphatase 81 U/L (46-116); Anion Gap 9 (7-16); Aspartate Amino Transferase 12 U/L (0-34); BUN/Creatinine Ratio 23 Ratio (12-20); Bilirubin,Total 0.2 mg/dL (0.3-1.2); Blood Urea Nitrogen 27 mg/dL (9-23); Calcium 8.4 mg/dL (8.3-10.6); Calcium (Corrected) 9.1 mg/dL (8.5-10.1); Carbon Dioxide 26.1 mMol/L (20.0-31.0); Chloride 105 mMol/L (98-107); Creatinine (Component) 1.2 mg/dL (0.6-1.3); Estimated Creatinine Clearance 69.2 mL/min (>60); Globulin 2.5 gm/dL (2.3-3.5); Glucose 138 mg/dL (74-106); Osmolality,Calculated 286 (275-295); Phosphorous 3.3 mg/dL (2.4-5.1); Potassium 3.2 mMol/L (3.4-5.1); Sodium 140 mMol/L (136-145); Total Protein 5.6 gm/dL (5.7-8.2); eGFR > 60 See Note
--- NOTE | 2024-10-17 07:46 | PC.NURSE ---
Hemoglobin has been trending down since admission. Patient is currently on heparin drip for PE. There is no signs or symptoms of bleeding. Dr. Tammy rodriguez.
[2024-10-17] MEDS: BUMETANIDE INJ 0.25 MG/ML VIAL 4 ML 2 MG IVP ×2 (08:09→21:04)
[2024-10-17] MEDS: LORazepam 2 MG/ML VIAL 0.5 MG IVP (08:21)
[2024-10-17] MEDS: Heparin/D5w 25K 250 ML Ivpb 25,000 UNIT/250 ML BAG 15.125 UNIT IV (08:22)
--- NOTE | 2024-10-17 08:51 | PC.SS ---
Follow up note: SS received a call from [email or web address] who states patient was paying privately and can return to their facility. Patient remains on high flow 02.
--- NOTE | 2024-10-17 10:04 | XR_ITS ---
Examination: Left thoracentesis Ultrasound left hemithorax Ultrasound right hemithorax Exam date and time: October 17, 2024 1331 hours INDICATIONS: Difficulty breathing this week, bilateral pleural effusions on chest x-ray October 15, 2024 TECHNIQUE AND FINDINGS: Multiple high resolution grayscale sonographic images hemithoraces Large bilateral pleural effusions Informed consent provided Timeout performed. Skin prepped over the left hemithorax and sterile drape applied maximum sterile barrier technique hand hygiene ultrasound sterile technique Utilizing ultrasonographic guidance 5 Cymraes catheter placed in the left pleural space 1900 cc pleural fluid removed Estimated blood loss 0 cc IMPRESSION: Successful left thoracentesis, 1900 cc pleural fluid removed
--- NOTE | 2024-10-17 10:17 | ESPR_ITS ---
<Statement entered by Rosendo Ledezma MD - 10/18/24 12:28> I personally evaluated this patient admitted hospital severe symptoms bilateral pleural effusions congestive heart failure and cardiac echo showed severe LV dysfunction ejection fraction only 25% dilated cardiomyopathy etiology undetermined. Continue aggressive diuretic therapy I doubt very much patient has pulmonary emboli I looked at the CT myself did not see much of evidence of pulmonary emboli treat congestive heart failure aggressively I do not think patient has pulmonary emboli that is causing his shortness of breath at this point his oxygen requirements also come down significantly. Will continue to monitor the patient may require right left heart cardiac catheterization at some point to determine etiology of heart failure. Agree with the treatment plan recommendation as formulated by Dr. Dorsey PGY 2 Documentation for date of: 10/17/24 Subjective Subjective Interval history: The patient is a 64-year-old male with a past medical history of severe peripheral arterial occlusive disease, hypertension, hypercholesterolemia, diabetes mellitus type 2, who had a [id number] amputation on 09/29/2024, discharged home on 10/06/2024, at that time chest x-ray was clear, came to the hospital with severe shortness of breath for last 2 or 3 days with increasing productive cough and chills and low-grade fever increased. There is no chest pain. Initial assessment showed possible pneumonia, congestive heart failure. CT scan showed evidence of extensive bilateral pleural effusion, congestive heart failure reported as pneumonia as well, but mostly congestive heart failure.Laboratory data showed markedly elevated BNP levels of 3280. Initial troponin was mildly elevated at 1.10 and subsequently has come down to 0.83. Other lab data showed blood glucose 127, creatinine is 1.1. The rest of lab data showed white count is elevated as well initially, mildly elevated at 11.7, hemoglobin 9.2, hematocrit 29. He is feeling little better, still has severe shortness breath, appears to have acutely decompensated congestive heart failure. PMH: As above Allergies: NKDA Home medications: Eliquis 2.5 mg twice daily, amlodipine 5 mg daily, bronchodilators, antibiotics at home 10/17/2024: Patient was seen and examined at the bedside. Patient was initially on high flow nasal cannula switched to nasal cannula on 4 L saturating well above 90%. Patient underwent left-sided thoracentesis today without complication.Labs revealed slightly improvement in white count, drop in hemoglobin mildly. Electrolytes showed hypokalemia. Kidney functions stable with GFR above 60. Recommended to continue IV diuretic therapy aggressively with Bumex 2 mg twice a day. Strict [place]'s, fluid restriction and daily weight. Replete electrolytes as necessary.Patient will undergo left-sided thoracentesis for pleural effusion. Echocardiogram showed Dilated cardiomyopathy severe global hypokinesis severe systolic dysfunction ejection fraction of 25%.Mitral valve thickening mild mitral regurgitation.Mild tricuspid regurgitation.Evidence of large left pleural effusion is present.Continue treating underlying sepsis with antibiotic therapy due to community-acquired pneumonia and recommended to discontinue heparin drip for now and if hemoglobin remains stable will likely discharge on Eliquis starter pack for 3 months. All labs and orders were reviewed. Exam Vital Signs Temp Pulse Resp BP Pulse Ox O2 Del Method O2 Flow Rate 96.8 F 98 15 137/80 H 96 High Flow Nasal Cannula 35 10/17/24 08:00 10/17/24 08:09 10/17/24 08:00 10/17/24 08:09 10/17/24 08:00 10/17/24 08:00 10/17/24 08:00 FiO2 55 10/17/24 08:00 Narrative Exam GENERAL: Patient appears older than stated age. He is seen on on 4 L nasal cannula. HEENT: NC/AT. Moist mucosa. PERRLA/EOMI. prominent JVD CARDIO: Heart RRR, no obvious murmurs, PULM: Wheezing noted bilaterally both upper and lower lung [place]; no crackles/Rales/rhonchi GI: Abdomen soft, NT/ND, +BS. MSK/EXT: Left lower extremity below-knee amputation. 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 extremity and left upper extremity, below-knee amputation left lower extremity Psych: Appropriate mood and affect Objective Labs 10/17/24 04:55 10/17/24 04:55 Labs: Laboratory Results - last 24 hr 10/16/24 10/16/24 10/17/24 14:04 16:06 00:19 WBC RBC Hgb Hct MCV MCH MCHC RDW Std Deviation Plt Count Neut % (Auto) Lymph % (Auto) [place] % (Auto) Eos % (Auto) Baso % (Auto) Neut # (Auto) Lymph # (Auto) [place] # (Auto) Eos # (Auto) Baso # (Auto) Immature Gran # (Auto) Absolute Nucleated RBC Immature Gran % Nucleated RBC % PT INR APTT 42.4 H D 60.3 H D Sodium Potassium Chloride Carbon Dioxide Anion Gap BUN Creatinine Estim Creat Clear Calc eGFR BUN/Creatinine Ratio Glucose Calculated Osmolality Calcium Corrected Calcium Phosphorus Magnesium 1.6 Total Bilirubin AST ALT Alkaline Phosphatase Total Protein Albumin Globulin Albumin/Globulin Ratio 10/17/24 04:55 WBC 11.0 H RBC 2.60 L Hgb 7.3 L Hct 23.0 L MCV 89 MCH 28.1 MCHC 31.7 RDW Std Deviation 52.0 H Plt Count 329 Neut % (Auto) 77 Lymph % (Auto) 12 [place] % (Auto) 9 Eos % (Auto) 0 Baso % (Auto) 1 Neut # (Auto) 8.5 H Lymph # (Auto) 1.3 [place] # (Auto) 1.0 H Eos # (Auto) 0.0 Baso # (Auto) 0.1 Immature Gran # (Auto) 0.07 H Absolute Nucleated RBC 0.00 Immature Gran % 1 H Nucleated RBC % 0 PT 10.5 INR 1.0 APTT 56.9 H Sodium 140 Potassium 3.2 L D Chloride 105 Carbon Dioxide 26.1 Anion Gap 9 BUN 27 H Creatinine 1.2 Estim Creat Clear Calc 69.2 eGFR > 60 BUN/Creatinine Ratio 23 H Glucose 138 H Calculated Osmolality 286 Calcium 8.4 Corrected Calcium 9.1 Phosphorus 3.3 Magnesium 2.0 Total Bilirubin 0.2 L AST 12 ALT 11 Alkaline Phosphatase 81 Total Protein 5.6 L Albumin 3.1 L Globulin 2.5 Albumin/Globulin Ratio 1.2 ABG Interpretation ABG results: 10/15/24 10/16/24 21:23 01:41 ABG pH 7.22 L 7.36 D ABG pCO2 63 H 45 D ABG pO2 65 L 69 L ABG HCO3 26 25 ABG O2 Saturation 90 L 95 ABG Base Excess -3 0 Quality Measures Quality Measures VTE therapy (Heparin drip) Assessment & Plan Assessment Current Active Medications: Generic Name Dose Route Start Last Admin Trade Name Freq PRN Reason Stop Dose Admin Acetaminophen 650 mg 10/15/24 20:47 Acetaminophen 325 Mg Tablet PO 11/14/24 20:46 Q6HR PRN Mild Pain 1-3 or Fever >100.3 Amlodipine Besylate 5 mg 10/15/24 21:00 10/16/24 20:14 Amlodipine Besylate 5 Mg Tablet PO 11/14/24 20:59 5 mg HS JAZMÍN Administration Atorvastatin Calcium 40 mg 10/15/24 21:00 10/16/24 20:14 Atorvastatin Calcium 20 Mg Tablet PO 11/14/24 20:59 40 mg HS JAZMÍN Administration Bumetanide 2 mg 10/16/24 12:30 10/17/24 08:09 Bumetanide Inj 0.25 Mg/Ml Vial 4 Ml IVP 11/15/24 12:29 2 mg BID JAZMÍN Administration Dextrose 25 ml 10/15/24 20:31 Dextrose 50%-Water Inj 50 Ml Syringe IV 11/14/24 20:30 Q15MIN PRN BG 50-70 responsive npo pt Dextrose 50 ml 10/15/24 20:31 Dextrose 50%-Water Inj 50 Ml Syringe IV 11/14/24 20:30 Q15MIN PRN BG <50 OR BG <70 & pt unresponsive Glucagon 1 mg 10/15/24 20:31 Glucagon Inj 1 Mg Vial IM Q15MIN PRN BG <70, and no IV access Cefepime HCl 2 gm/ Sodium 50 mls @ 100 mls/hr 10/15/24 20:22 10/17/24 05:51 Chloride IV 10/22/24 20:21 100 mls/hr Q8HR JAZMÍN Administration Heparin Sodium/Dextrose 25,000 unit in 250 mls @ 10 mls/hr 10/16/24 14:25 10/17/24 08:22 Heparin In D5w Ivpb IV 10/29/24 16:44 17.55 units/kg/hr .Q24H PRN 15.125 mls/hr PROTOCOL Administration Protocol 11.603 UNITS/KG/HR Insulin Glargine 12 unit 10/17/24 21:00 Insulin Glargine (Lantus) 5 Unit/0.05 Ml (Per 5 Units) SC 11/16/24 20:59 HS [facility] Insulin Human Lispro 0 unit 10/17/24 11:30 Insulin Lispro (Admelog) 1 Unit/0.01 Ml Unit SC 11/16/24 11:29 [facility] Protocol Insulin Human Lispro 1 unit 10/17/24 11:30 Insulin Lispro (Admelog) 1 Unit/0.01 Ml Unit SC 11/16/24 11:29 AC JAZMÍN Levalbuterol HCl 0.31 mg 10/16/24 13:33 10/16/24 23:12 Levalbuterol Rt 0.31 Mg/3 Ml Nebu INH 11/15/24 13:32 0.31 mg Q8HR PRN Administration WHEEZING Lorazepam 0.5 mg 10/15/24 18:33 10/17/24 08:21 Lorazepam 2 Mg/Ml Vial IVP 10/20/24 20:59 0.5 mg BID PRN Administration ANXIETY Melatonin 3 mg 10/16/24 02:15 10/16/24 20:14 Melatonin 3 Mg Tablet PO 11/15/24 02:14 3 mg HS JAZMÍN Administration Sennosides 1 tab 10/16/24 15:32 Senna Tablet PO 11/15/24 15:31 QDAY PRN CONSTIPATION Protocol Plan This 64-year-old male with a past medical history of hypertension, hyperlipidemia, diabetes mellitus type 2 insulin-dependent and a recent history of BKA who was admitted on 10/15/2024 for acute respiratory failure and sepsis secondary to community acquired pneumonia. # Acute hypoxic respiratory failure # Likely secondary to acute decompensated CHF versus right base pneumonia versus bilateral PE versus pleural effusions, multifactorial # Dilated cardiomyopathy HFrEF ejection fraction 25% # Post thoracentesis for left sided pleural effusion # History of peripheral arterial occlusive disease # History of hypertension ? Patient presented with shortness of breath. BNP> 30-80. Chest x-ray was significant for prominent vascular congestion with perihilar edema. No previous history of heart failure. ? Patient showed urine output of 3.6 L with negative balance of 1.3. ?Chest CTA showed positive for small bilateral pulmonary artery emboli, right upper lobe and right lower lobe pulmonary artery branches ?Echocardiogram showed Dilated cardiomyopathy severe global hypokinesis severe systolic dysfunction ejection fraction of 25%.Mitral valve thickening mild mitral regurgitation.Mild tricuspid regurgitation.Evidence of large left pleural effusion is present. Plan: ? Patient underwent left-sided thoracentesis removed 1900 cc today ? Patient will undergo right-sided thoracentesis tomorrow morning ? Recommended to continue IV diuretic therapy Bumex 2 mg twice a day ? Continue fluid restriction, strict [place]'s and daily weight ? Continue breathing treatments ? Recommended to DC heparin drip and will likely give Eliquis starter pack in case of stable hemoglobin as less likely suspicious for PE ? Follow-up on pleural fluid analysis and cytology ? Continue IV antibiotic therapy ? Trend troponin I if patient has significant ischemia or chest pain ? Replete electrolytes as necessary ? Daily labs ? Keep magnesium above 2 and potassium above 4 ? Oxygen as needed # NSTEMI type II likely supply demand ischemia # History of hypertension ? Patient presented with worsening shortness of breath. EKG showed sinus tachycardia with occasional PVCs. QTc 459. Plan: ?Troponin I down trended to 0.830 ? Continue home medications # Pulmonary embolism, likely provoked # Sepsis likely secondary to community-acquired pneumonia # History of diabetes type 2 # Status post below-knee amputation, left lower extremity # Normocytic anemia # Leukocytosis # Electrolyte disturbance # Hypokalemia Rest of the management as per primary care team. Thank you very much for consulting cardiology team. Recommended to continue IV diuretic therapy with Bumex 2 mg twice a day, strict [place]'s, fluid restriction and daily weight. Echocardiogram showed EF 25%. Recommended to DC heparin drip as there is less likely suspiciousness for PE and will likely give Eliquis starter pack only if hemoglobin remained stable. Plan of care discussed with cable tester, Dr. Darien Dorsey MD, PGY 2
[2024-10-17 12:59] LABS: Partial Thromboplastin Time 51.9 Seconds (22.0-36.0)
--- NOTE | 2024-10-17 13:34 | ESPR_ITS ---
<Statement entered by Florinda Han MD - 10/18/24 05:56> Patient seen and examined at bedside. No acute overnight events reported. Thoracentesis removed 1.7L, pending fluid analysis and cytology. Patient is currently on 4L NC, and doing well. Will continue to monitor patient's urine output, and consider decreasing Bumex dose tomorrow. Will also discontinue heparin gtt, and start Eliquis at discharge, per Cardio. I discussed with and supervised the internet marketer physician who took care of this patient. I personally saw and examined the patient and discussed the assessment and plan with the entire medicine team, including my attending , I agree with most of the assessment and plan as documented below Florinda Han M.D. PGY-2 Documentation for date of: 10/17/24 Subjective Subjective Interval history: 10/17/2024: No acute overnight events to report. Patient received ultrasound- guided thoracentesis of right-sided pleural effusion with 1.7 L removed; pending pleural fluid analysis and cytology. Patient has improved regarding supplemental oxygenation need, off high flow nasal cannula and on 4 L nasal cannula. We will continue diuresing patient aggressively with 2 mg IV Bumex, cardiology following and appreciate their recommendations. Discontinued patient's IV heparin drip and will most likely discharge patient on a 3-month supply of Eliquis for the PEs which were confirmed on CTA chest. Changed patient's insulin regimen to Lantus 12 units and 1 unit of lispro before every meal; sliding scale still active. Exam Vital Signs Temp Pulse Resp BP Pulse Ox O2 Del Method O2 Flow Rate 98.2 F 97 18 147/94 H 98 High Flow Nasal Cannula 35 10/17/24 12:00 10/17/24 12:00 10/17/24 12:00 10/17/24 12:00 10/17/24 12:00 10/17/24 12:00 10/17/24 12:00 FiO2 55 10/17/24 12:00 Narrative Exam Physical Exam: GENERAL: On 4L nasal cannula, in no respiratory distress, answering questions appropriately, appears older than stated age HEENT: NC/AT. Moist mucosa. PERRLA/EOMI. CARDIO: Heart RRR, no obvious murmurs, no JVD. PULM: Mild, sporadic wheezing noted bilaterally both upper and lower lung [place]; no crackles/Rales/rhonchi GI: Abdomen soft, NT/ND, +BS. 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 No wounds/discoloration/rashes/amputations. +Pedal pulses present B/L. 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 Objective Labs 10/17/24 04:55 10/17/24 04:55 Labs: Laboratory Results - last 24 hr 10/16/24 10/16/24 10/17/24 14:04 16:06 00:19 WBC RBC Hgb Hct MCV MCH MCHC RDW Std Deviation Plt Count Neut % (Auto) Lymph % (Auto) [place] % (Auto) Eos % (Auto) Baso % (Auto) Neut # (Auto) Lymph # (Auto) [place] # (Auto) Eos # (Auto) Baso # (Auto) Immature Gran # (Auto) Absolute Nucleated RBC Immature Gran % Nucleated RBC % PT INR APTT 42.4 H D 60.3 H D Sodium Potassium Chloride Carbon Dioxide Anion Gap BUN Creatinine Estim Creat Clear Calc eGFR BUN/Creatinine Ratio Glucose Calculated Osmolality Calcium Corrected Calcium Phosphorus Magnesium 1.6 Total Bilirubin AST ALT Alkaline Phosphatase Total Protein Albumin Globulin Albumin/Globulin Ratio 10/17/24 10/17/24 04:55 12:20 WBC 11.0 H RBC 2.60 L Hgb 7.3 L Hct 23.0 L MCV 89 MCH 28.1 MCHC 31.7 RDW Std Deviation 52.0 H Plt Count 329 Neut % (Auto) 77 Lymph % (Auto) 12 [place] % (Auto) 9 Eos % (Auto) 0 Baso % (Auto) 1 Neut # (Auto) 8.5 H Lymph # (Auto) 1.3 [place] # (Auto) 1.0 H Eos # (Auto) 0.0 Baso # (Auto) 0.1 Immature Gran # (Auto) 0.07 H Absolute Nucleated RBC 0.00 Immature Gran % 1 H Nucleated RBC % 0 PT 10.5 INR 1.0 APTT 56.9 H 51.9 H Sodium 140 Potassium 3.2 L D Chloride 105 Carbon Dioxide 26.1 Anion Gap 9 BUN 27 H Creatinine 1.2 Estim Creat Clear Calc 69.2 eGFR > 60 BUN/Creatinine Ratio 23 H Glucose 138 H Calculated Osmolality 286 Calcium 8.4 Corrected Calcium 9.1 Phosphorus 3.3 Magnesium 2.0 Total Bilirubin 0.2 L AST 12 ALT 11 Alkaline Phosphatase 81 Total Protein 5.6 L Albumin 3.1 L Globulin 2.5 Albumin/Globulin Ratio 1.2 ABG Interpretation ABG results: 10/15/24 10/16/24 21:23 01:41 ABG pH 7.22 L 7.36 D ABG pCO2 63 H 45 D ABG pO2 65 L 69 L ABG HCO3 26 25 ABG O2 Saturation 90 L 95 ABG Base Excess -3 0 Quality Measures Quality Measures VTE therapy (Heparin drip) Assessment & Plan Assessment Current Active Medications: Generic Name Dose Route Start Last Admin Trade Name Freq PRN Reason Stop Dose Admin Acetaminophen 650 mg 10/15/24 20:47 Acetaminophen 325 Mg Tablet PO 11/14/24 20:46 Q6HR PRN Mild Pain 1-3 or Fever >100.3 Amlodipine Besylate 5 mg 10/15/24 21:00 10/16/24 20:14 Amlodipine Besylate 5 Mg Tablet PO 11/14/24 20:59 5 mg HS JAZMÍN Administration Atorvastatin Calcium 40 mg 10/15/24 21:00 10/16/24 20:14 Atorvastatin Calcium 20 Mg Tablet PO 11/14/24 20:59 40 mg HS JAZMÍN Administration Bumetanide 2 mg 10/16/24 12:30 10/17/24 08:09 Bumetanide Inj 0.25 Mg/Ml Vial 4 Ml IVP 11/15/24 12:29 2 mg BID JAZMÍN Administration Dextrose 25 ml 10/15/24 20:31 Dextrose 50%-Water Inj 50 Ml Syringe IV 11/14/24 20:30 Q15MIN PRN BG 50-70 responsive npo pt Dextrose 50 ml 10/15/24 20:31 Dextrose 50%-Water Inj 50 Ml Syringe IV 11/14/24 20:30 Q15MIN PRN BG <50 OR BG <70 & pt unresponsive Glucagon 1 mg 10/15/24 20:31 Glucagon Inj 1 Mg Vial IM Q15MIN PRN BG <70, and no IV access Cefepime HCl 2 gm/ Sodium 50 mls @ 100 mls/hr 10/15/24 20:22 10/17/24 05:51 Chloride IV 10/22/24 20:21 100 mls/hr Q8HR JAZMÍN Administration Heparin Sodium/Dextrose 25,000 unit in 250 mls @ 10 mls/hr 10/16/24 14:25 10/17/24 08:22 Heparin In D5w Ivpb IV 10/29/24 16:44 17.55 units/kg/hr .Q24H PRN 15.125 mls/hr PROTOCOL Administration Protocol 11.603 UNITS/KG/HR Insulin Glargine 12 unit 10/17/24 21:00 Insulin Glargine (Lantus) 5 Unit/0.05 Ml (Per 5 Units) SC 11/16/24 20:59 HS JAZMÍN Insulin Human Lispro 0 unit 10/17/24 11:30 10/17/24 12:26 Insulin Lispro (Admelog) 1 Unit/0.01 Ml Unit SC 11/16/24 11:29 Not Given AC [facility] Protocol Insulin Human Lispro 1 unit 10/17/24 11:30 10/17/24 12:25 Insulin Lispro (Admelog) 1 Unit/0.01 Ml Unit SC 11/16/24 11:29 Not Given AC [facility] Levalbuterol HCl 0.31 mg 10/16/24 13:33 10/16/24 23:12 Levalbuterol Rt 0.31 Mg/3 Ml Nebu INH 11/15/24 13:32 0.31 mg Q8HR PRN Administration WHEEZING Lorazepam 0.5 mg 10/15/24 18:33 10/17/24 08:21 Lorazepam 2 Mg/Ml Vial IVP 10/20/24 20:59 0.5 mg BID PRN Administration ANXIETY Melatonin 3 mg 10/16/24 02:15 10/16/24 20:14 Melatonin 3 Mg Tablet PO 11/15/24 02:14 3 mg HS JAZMÍN Administration Sennosides 1 tab 10/16/24 15:32 Senna Tablet PO 11/15/24 15:31 QDAY PRN CONSTIPATION Protocol Plan 64-year-old male with a past medical history of hypertension, hyperlipidemia, diabetes mellitus type 2 insulin-dependent and a recent history of BKA who was admitted on 10/15/2024 for acute respiratory failure and sepsis secondary to community acquired pneumonia. #Acute Respiratory Failure Likely secondary to new CHF exacerbation versus right base pneumonia or bilateral pulmonary embolism; multifactorial Patient presented from custodial facility with shortness of breath which started on 10/14 and has progressively worsened In the ED, patient met 3 out of 4 SIRS criteria; HR 114, RR 28, WBC 11.7 ABG: ABG 7.44, pCO2 38, pO 115 Troponin 1.100, 0.800 BNP>3280 EKG sinus tachycardia with irregular RR intervals; P waves present Chest x-ray 10/15 shows: moderate CHF, prominent vascular congestion w/perihilar edema, and superimposed pneumonia right base CTA 10/15 shows: moderate CHF. Positive for small bilateral pulmonary artery emboli, right upper lobe and right lower lobe pulmonary artery branches. Right-sided ultrasound thoracentesis for pleural effusion completed; 1.7L fluid removed Passed speech eval 10/16 Plan: Continue oxygen supplementation as needed Levalbuterol q8h scheduled Follow-up on pleural fluid analysis and cytology Continue cefepime 2 mg IV every 8 Pending cultures, blood and sputum Aspiration Precautions #New Congestive Heart Failure #NSTEMI type II #Hyperlipidemia ASCVD risk of 19.6% in next 10 years; High-intensity statin recommended because of known diabetes Patient does not follow cardiology outpatient; does not have history of heart disease Patient denies having any chest pain at this time Troponin, BNP and EKG findings as stated above Imaging studies as stated above Cardiology, Dr. 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 Patient presented hypoxic with tachycardia as noted above CTA confirmed presence of suspected bilateral pulmonary embolism; cardiology doubts at this time and attributes respiratory failure to overt heart failure instead Plan: Discontinue heparin gtt Will discharge patient with 3 month supply of Eliquis per cardiology recs #History of hypertension Patient on home amlodipine 5 mg Plan: Continue home medication #Insulin-dependent type 2 diabetes Previous non-adherence to medication A1c 6.7 on 09/23/2024 Plan Increased Lantus 12 units HS Lispro 1 pre meals Continue sliding scale insulin Health Maintenance: Lines: PIV, Azevedo Bowel: Senna as needed Diet: Cardiac GI prophylaxis: Not needed DVT prophylaxis: SCD Dispo: Aggressive diuresis for suspected acute CHF exacerbation; cardiology following Code: Full Patient seen and examined with attending Dr. Parnell and senior resident Dr. Emely Pastrana, PGY-1 Attending Provider Attestation/Addendum I have examined the patient, reviewed labs and imaging findings, discussed the case with the resident(s), and reviewed entered orders. I agree with the plan of care as outlined in this note, with these additional summaries/recommendations: # Acute hypoxic respiratory failure Likely multifactorial secondary to new onset CHF, bilateral small pulmonary emboli, PNA?, and pleural effusions. Continue high flow nasal cannula and wean as tolerated Minimal wheezing noted bilaterally unlikely cardiac in origin as patient has no previous history of COPD, continue breathing treatments as needed, repeat ABG reviewed # Acute CHF exacerbation # Bilateral pleural effusions No previous history of heart failure per patient Presented with shortness of breath BNP greater than 3280, chest x-ray showed prominent vascular congestion with perihilar edema, weight on admission 86.18 kg Unclear trigger for new onset CHF Echocardiogram ordered and pending Cardiology consulted, recommendations appreciated Monitor on telemetry, lipid panel, A1c, EKG as needed, TSH Strict I's and O's and fluid restriction Continue with Bumex 2 mg IV twice daily Pending IR ultrasound guided of pleural effusion and send fluid for analysis We will start goal-directed medical therapy based off echocardiogram results Plan: Continue aggressive diuresis and continue to wean O2 requirement # Pulmonary embolism CTA chest showed small bilateral pulmonary artery emboli in right upper lobe and right lower lobe although difficult to discern on CTA. Provoked in the setting of recent BKA indicating 3 to 6 months of anticoagulation Continue heparin drip and target APTT of 60 to 80 seconds #?Community-acquired pneumonia Patient does endorse productive cough and has WBC count of 11.4 Chest x-ray significant for possible superimposed pneumonia right base Patient recently hospitalized Continue IV cefepime for now and follow-up blood/sputum cultures # Troponinemia Likely secondary to demand ischemia in the setting of acute hypoxic respiratory failure Troponin peaked at 1.10 No further need to trend troponin for now Continue to monitor # Diabetes mellitus type 2 09/23/24 A1C 6.7% Continue insulin sliding scale with Accu-Cheks Target blood sugar of 140-180 while hospitalized # Hypomagnesia Magnesium 1.1 and critically low on admission Given aggressive replacement and repeat level in a.m. # Primary hypertension Continue home antihypertensives as tolerated Dr. Parnell
--- NOTE | 2024-10-17 13:55 | XR_ITS ---
Examination: AP chest single view Technique one AP semiupright portable chest single view Exam date and time: October 17, 2024 1417 hours Comparison September 27, 2024 INDICATIONS: Post left thoracentesis today FINDINGS: No pneumothorax post thoracentesis Significant opacity right lung with likely right pleural fluid IMPRESSION: No pneumothorax post left thoracentesis
[2024-10-17] MEDS: POTASSIUM CHLORIDE 10% 20 MEQ/15 ML UDC 40 MEQ PO (14:44)
--- NOTE | 2024-10-17 14:53 | PC.NURSE ---
heparin drip stopped at this time per MD, see orders.
[2024-10-17 15:49] LABS: Pleural Fluid RBC 0 /cmm; Pleural Fluid WBC 132 /cmm
[2024-10-17 15:53] LABS: Pleural Fluid Appearance Hazy; Pleural Fluid Color Straw; Pleural Fluid Mononuclear 29 %; Pleural Fluid Polynuclear 71 %
[2024-10-17 15:58] LABS: Amylase,Pleural Fluid < 20 IU/L; Glucose,Pleural Fluid 140 mg/dL; LDH,Pleural Fluid 54 IU/L; Protein Total,Pleural Fluid < 2.0 g/dL
[2024-10-17] MEDS: INSULIN LISPRO (AdmeLOG) 1 UNIT/0.01 ML UNIT SC ×2 (17:05)
[2024-10-17] MEDS: ACETAMINOPHEN 325 MG TABLET 650 MG PO (18:31)
[2024-10-17] MEDS: ATORVASTATIN CALCIUM 20 MG TABLET 40 MG PO (21:04)
[2024-10-17] MEDS: MELATONIN 3 MG TABLET PO (21:04)
[2024-10-17] MEDS: amLODIPine BESYLATE 5 MG TABLET PO (21:05)
[2024-10-17] MEDS: INSULIN GLARGINE (Lantus) 5 UNIT/0.05 ML (PER 5 UNITS) 12 UNIT SC (21:05)
[2024-10-18] VITALS (10 sets, daily range): BP systolic 129–147; BP diastolic 79–86; PULSE 82–104; RESP 16–27; TEMP 36–36.8; O2SAT 93–99
[2024-10-18] MEDS: guaiFENesin SYRUP 200 MG/10 ML UDC 100 MG PO ×2 (02:26→20:01)
[2024-10-18] MEDS: CEFEPIME INJ 2 GM in SODIUM CHLORIDE 0.9% (P) 50 ML IV ×3 (05:34→21:15)
[2024-10-18 06:27] LABS: Basophils % (Auto) 0 % (0-2.5); Eosinophils # (Auto) 0.1 Thou/mm3 (0.0-0.5); Eosinophils % (Auto) 1 % (0-10); Hematocrit 24.6 % (41.0-53.0); Immature Granulocytes % (Auto) 1 % (0-0); Immature Granulocytes Auto 0.07 Thou/mm3 (0.00-0.00); Lymphocytes # (Auto) 1.2 Thou/mm3 (1.0-4.8); Lymphocytes % (Auto) 10 % (10-50); Mean Corpuscular HGB Conc 31.7 g/dl (31.0-37.0); Mean Corpuscular Hemoglobin 27.6 pg (25.0-35.0); Mean Corpuscular Volume 87 fL (80-100); Monocytes # (Auto) 0.9 Thou/mm3 (0.0-0.8); Monocytes % (Auto) 8 % (0-12); Neutrophils # (Auto) 9.1 Thou/mm3 (1.8-7.7); Neutrophils % (Auto) 80 % (37-80); Nucleated Red Blood Cell % 0 /100 WBC (0); Platelet Count 316 Thou/mm3 (140-440); RDW Standard Deviation 50.7 fL (35.1-43.9); Red Blood Count 2.83 Miln/mm3 (4.50-5.90); White Blood Count 11.4 Thou/mm3 (3.8-10.6)
[2024-10-18 06:29] LABS: Hemoglobin 7.8 g/dL (13.5-16.0)
[2024-10-18 07:21] LABS: Alanine Aminotransferase 21 U/L (10-49); Albumin, Serum 2.9 gm/dL (3.4-4.8); Albumin/Globulin Ratio 1.3 (1.2-2.2); Alkaline Phosphatase 105 U/L (46-116); Anion Gap 8 (7-16); Aspartate Amino Transferase 20 U/L (0-34); BUN/Creatinine Ratio 23 Ratio (12-20); Bilirubin,Total 0.3 mg/dL (0.3-1.2); Blood Urea Nitrogen 27 mg/dL (9-23); Calcium 7.9 mg/dL (8.3-10.6); Calcium (Corrected) 8.8 mg/dL (8.5-10.1); Carbon Dioxide 28.4 mMol/L (20.0-31.0); Chloride 104 mMol/L (98-107); Creatinine (Component) 1.2 mg/dL (0.6-1.3); Estimated Creatinine Clearance 69.2 mL/min (>60); Globulin 2.3 gm/dL (2.3-3.5); Glucose 146 mg/dL (74-106); Magnesium 1.5 mg/dL (1.6-2.6); Osmolality,Calculated 287 (275-295); Potassium 3.1 mMol/L (3.4-5.1); Sodium 140 mMol/L (136-145); Total Protein 5.2 gm/dL (5.7-8.2); eGFR > 60 See Note
--- NOTE | 2024-10-18 08:54 | XR_ITS ---
Examination: Ultrasound-guided right thoracentesis Ultrasound right hemithorax Exam date and time: October 18, 2024 1220 hours INDICATIONS: Difficulty breathing this week, chest x-ray October 17, 2024 significant right pleural fluid TECHNIQUE AND FINDINGS: Multiple high resolution grayscale sonographic images right hemithorax Large right pleural effusion Informed consent provided. Timeout performed. Skin prepped over the right hemithorax and sterile drape applied hand hygiene ultrasound sterile technique 1% lidocaine administered for local anesthesia Utilizing ultrasonographic guidance 5 Malay catheter placed in the right pleural space 1900 cc pleural fluid removed Estimated blood loss 0 cc IMPRESSION: Successful ultrasound-guided right thoracentesis, 1900 cc pleural fluid removed
[2024-10-18] MEDS: Magnesium Sulfate 4 GM Ivpb 4 GM/50 ML BAG IV (08:58)
[2024-10-18] MEDS: BUMETANIDE INJ 0.25 MG/ML VIAL 4 ML 2 MG IVP ×2 (08:59→21:15)
[2024-10-18] MEDS: POTASSIUM CHLORIDE 20 mEq TABCR 40 MEQ PO (08:59)
[2024-10-18] MEDS: POTASSIUM CHLORIDE 20 mEq TABCR PO (09:00)
[2024-10-18] MEDS: ACETAMINOPHEN 325 MG TABLET 650 MG PO (09:16)
[2024-10-18] MEDS: LORazepam 2 MG/ML VIAL 0.5 MG IVP (09:17)
--- NOTE | 2024-10-18 10:43 | PC.SS ---
rounding note: Patient to receive a thoracentesis today. Off high flow and 0n 02. D/c plan remains to d/c to [place] where he came from.
[2024-10-18] MEDS: INSULIN LISPRO (AdmeLOG) 1 UNIT/0.01 ML UNIT SC ×4 (11:55→16:59)
--- NOTE | 2024-10-18 12:19 | PC.NURSE ---
Patient transported to ultrasound via bed per RAJAT Li.
--- NOTE | 2024-10-18 12:48 | XR_ITS ---
Examination: AP chest single view Technique one AP upright portable chest single view INDICATIONS: Tenderness FINDINGS: No pneumothorax post right thoracentesis Normal heart size Moderate vascular congestion IMPRESSION: No pneumothorax post right thoracentesis
--- NOTE | 2024-10-18 13:08 | ESPR_ITS ---
<Statement entered by Florinda Han MD - 10/19/24 14:16> Patient seen and examined at bedside. No acute overnight events reported. Patient had a total of 3.9 L pleural drainage from b/l thoracentesis procedures and net negative 3.2L via aggressive diuresis. Patient's oxygenation has improved, and currently saturating well on 5-6L O2. Will continue to replete electrolytes, and anticipate discharge within 24-48 hours. Cardio is following, and recommended to start GDMT, as recent echocardiogram suggested EF of 25%. I discussed with and supervised the marketing research intern physician who took care of this patient. I personally saw and examined the patient and discussed the assessment and plan with the entire medicine team, including my attending , I agree with most of the assessment and plan as documented below Florinda Han M.D. PGY-2 Documentation for date of: 10/18/24 Subjective Subjective Interval history: 10/18/2024: Overnight patient received left-sided thoracentesis with drainage of 1.9 L; fluid analysis has been sent awaiting cultures and cytology fluid appears to be transudative. Patient seen and examined this morning appears to be symptomatically much better than when he first presented; currently on 4 L nasal cannula. Patient also got a right sided thoracentesis which similarly drained about 1.9 L of fluid. Rafiq will continue diuresing the patient with IV Bumex 2 mg twice daily, as he is now net negative almost 4 L. Cardiology has been consulted and they are following the patient closely; likely discharge within the next 24 to 48 hours. Exam Vital Signs Temp Pulse Resp BP Pulse Ox O2 Del Method O2 Flow Rate 97.4 F 97 21 H 132/79 H 96 Nasal Cannula 6 10/18/24 08:00 10/18/24 12:00 10/18/24 08:00 10/18/24 08:59 10/18/24 08:00 10/18/24 08:00 10/18/24 08:00 FiO2 55 10/18/24 08:00 Narrative Exam Physical Exam: GENERAL: On 4L nasal cannula, in no respiratory distress, answering questions appropriately, appears older than stated age HEENT: NC/AT. Moist mucosa. PERRLA/EOMI. CARDIO: Heart RRR, no obvious murmurs, no JVD. PULM: Mild, sporadic wheezing noted bilaterally both upper and lower lung [place]; no crackles/Rales/rhonchi GI: Abdomen soft, NT/ND, +BS. URO/MANAGER EDITORIAL: +Azevedo catheter draining yellow urine SKIN/MSK/EXT: Nonpitting edema noted lower extremities. No wounds/discoloration/rashes/amputations. +Pedal pulses present B/L. 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, brake lining finisher strength 5/5, Moves extremities x4. Objective Labs 10/19/24 04:30 10/19/24 04:30 Labs: Laboratory Results - last 24 hr 10/17/24 10/18/24 14:45 04:42 WBC 11.4 H RBC 2.83 L Hgb 7.8 L Hct 24.6 L MCV 87 MCH 27.6 MCHC 31.7 RDW Std Deviation 50.7 H Plt Count 316 Neut % (Auto) 80 Lymph % (Auto) 10 [place] % (Auto) 8 Eos % (Auto) 1 Baso % (Auto) 0 Neut # (Auto) 9.1 H Lymph # (Auto) 1.2 [place] # (Auto) 0.9 H Eos # (Auto) 0.1 Baso # (Auto) 0.0 Immature Gran # (Auto) 0.07 H Absolute Nucleated RBC 0.00 Immature Gran % 1 H Nucleated RBC % 0 Sodium 140 Potassium 3.1 L Chloride 104 Carbon Dioxide 28.4 Anion Gap 8 BUN 27 H Creatinine 1.2 Estim Creat Clear Calc 69.2 eGFR > 60 BUN/Creatinine Ratio 23 H Glucose 146 H Calculated Osmolality 287 Calcium 7.9 L Corrected Calcium 8.8 Phosphorus 3.0 Magnesium 1.5 L Total Bilirubin 0.3 AST 20 ALT 21 Alkaline Phosphatase 105 D Total Protein 5.2 L Albumin 2.9 L Globulin 2.3 Albumin/Globulin Ratio 1.3 Pleural Color Straw Pleural Appearance Hazy Pleural WBC 132 Pleural RBC 0 Pleural Polynuclear WBC 71 Pleural Mononuclear WBC 29 Pleural Total Protein < 2.0 Pleural LDH 54 Pleural Glucose 140 Pleural Amylase < 20 ABG Interpretation ABG results: 10/15/24 10/16/24 21:23 01:41 ABG pH 7.22 L 7.36 D ABG pCO2 63 H 45 D ABG pO2 65 L 69 L ABG HCO3 26 25 ABG O2 Saturation 90 L 95 ABG Base Excess -3 0 Quality Measures Quality Measures none Assessment & Plan Assessment Current Active Medications: Generic Name Dose Route Start Last Admin Trade Name Felicia PRN Reason Stop Dose Admin Acetaminophen 650 mg 10/15/24 20:47 10/18/24 09:16 Acetaminophen 325 Mg Tablet PO 11/14/24 20:46 650 mg Q6HR PRN Administration Mild Pain 1-3 or Fever >100.3 Amlodipine Besylate 5 mg 10/15/24 21:00 10/17/24 21:05 Amlodipine Besylate 5 Mg Tablet PO 11/14/24 20:59 5 mg HS JAZMÍN Administration Atorvastatin Calcium 40 mg 10/15/24 21:00 10/17/24 21:04 Atorvastatin Calcium 20 Mg Tablet PO 11/14/24 20:59 40 mg HS JAZMÍN Administration Bumetanide 2 mg 10/16/24 12:30 10/18/24 08:59 Bumetanide Inj 0.25 Mg/Ml Vial 4 Ml IVP 11/15/24 12:29 2 mg BID JAZMÍN Administration Dextrose 25 ml 10/15/24 20:31 Dextrose 50%-Water Inj 50 Ml Syringe IV 11/14/24 20:30 Q15MIN PRN BG 50-70 responsive npo pt Dextrose 50 ml 10/15/24 20:31 Dextrose 50%-Water Inj 50 Ml Syringe IV 11/14/24 20:30 Q15MIN PRN BG <50 OR BG <70 & pt unresponsive Glucagon 1 mg 10/15/24 20:31 Glucagon Inj 1 Mg Vial IM Q15MIN PRN BG <70, and no IV access Cefepime HCl 2 gm/ Sodium 50 mls @ 100 mls/hr 10/15/24 20:22 10/18/24 05:34 Chloride IV 10/22/24 20:21 100 mls/hr Q8HR JAZMÍN Administration Insulin Glargine 12 unit 10/17/24 21:00 10/17/24 21:05 Insulin Glargine (Lantus) 5 Unit/0.05 Ml (Per 5 Units) SC 11/16/24 20:59 12 unit HS JAZMÍN Administration Insulin Human Lispro 0 unit 10/17/24 11:30 10/18/24 11:55 Insulin Lispro (Admelog) 1 Unit/0.01 Ml Unit SC 11/16/24 11:29 1 unit AC JAZMÍN Administration Protocol Insulin Human Lispro 1 unit 10/17/24 11:30 10/18/24 11:55 Insulin Lispro (Admelog) 1 Unit/0.01 Ml Unit SC 11/16/24 11:29 1 unit AC JAZMÍN Administration Levalbuterol HCl 0.31 mg 10/16/24 13:33 10/16/24 23:12 Levalbuterol Rt 0.31 Mg/3 Ml Nebu INH 11/15/24 13:32 0.31 mg Q8HR PRN Administration WHEEZING Lorazepam 0.5 mg 10/15/24 18:33 10/18/24 09:17 Lorazepam 2 Mg/Ml Vial IVP 10/20/24 20:59 0.5 mg BID PRN Administration ANXIETY Melatonin 3 mg 10/16/24 02:15 10/17/24 21:04 Melatonin 3 Mg Tablet PO 11/15/24 02:14 3 mg HS JAZMÍN Administration Sennosides 1 tab 10/16/24 15:32 Senna Tablet PO 11/15/24 15:31 QDAY PRN CONSTIPATION Protocol Plan 64-year-old male with a past medical history of hypertension, hyperlipidemia, diabetes mellitus type 2 insulin-dependent and a recent history of BKA who was admitted on 10/15/2024 for acute respiratory failure and sepsis secondary to community acquired pneumonia. #Acute Hypoxic Respiratory Failure, Improving Likely secondary to new Acute CHF exacerbation versus right base pneumonia or bilateral pulmonary embolism vs. multifactorial Patient presented from group home facility with shortness of breath which started on 10/14 and has progressively worsened In the ED, patient met 3 out of 4 SIRS criteria; HR 114, RR 28, WBC 11.7 ABG: ABG 7.44, pCO2 38, pO 115 Troponin 1.100, 0.800 BNP>3280 EKG sinus tachycardia with irregular RR intervals; P waves present Chest x-ray 10/15 shows: moderate CHF, prominent vascular congestion w/perihilar edema, and superimposed pneumonia right base CTA 10/15 shows: moderate CHF. Positive for small bilateral pulmonary artery emboli, right upper lobe and right lower lobe pulmonary artery branches. Left-sided ultrasound thoracentesis for pleural effusion completed; 1.9L fluid removed Passed speech eval 10/16 Blood cultures no growth 48 hours Sputum cultures show +3 Mixed Lindsay Patient had R-sided thoracentesis with IR; with 1.9L removed Plan: Continue oxygen supplementation as needed Levalbuterol q8h scheduled Follow-up on pleural fluid analysis and cytology Continue cefepime 2 mg IV every 8 Aspiration Precautions #Acute Decompensated Heart Failure with EF <25%, Improving #Dilated Cardiomyopathy #New Congestive Heart Failure #NSTEMI type II #Hyperlipidemia ASCVD risk of 19.6% in next 10 years; High-intensity statin recommended because of known diabetes Patient does not follow cardiology outpatient; does not have history of heart disease Patient denies having any chest pain at this time Troponin, BNP and EKG findings as stated above Imaging studies as stated above Cardiology, Dr. Ledezma consulted appreciate recommendations TSH within normal limits Lipid panel from 09/23 within target Echo 10/17 shows: Dilated cardiomyopathy severe global hypokinesis severe systolic dysfunction ejection fraction of 25%. Mitral valve thickening mild mitral regurgitation. Mild tricuspid regurgitation. Evidence of large left pleural effusion is present. 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 Patient presented hypoxic with tachycardia as noted above CTA confirmed presence of suspected bilateral pulmonary embolism; cardiology doubts at this time and attributes respiratory failure to overt heart failure instead Plan: Has been off heparin gtt Will discharge patient with 3 month supply of Eliquis per cardiology recs #Hypertension Patient on home amlodipine 5 mg Plan: Continue home medication #Insulin-dependent type 2 diabetes Previous non-adherence to medication A1c 6.7 on 09/23/2024 Plan Increased Lantus 12 units HS Lispro 1 pre meals Continue sliding scale insulin Health Maintenance: Lines: PIV, Azevedo Bowel: Senna as needed Diet: Cardiac GI prophylaxis: Not needed DVT prophylaxis: SCD Dispo: Aggressive diuresis for suspected acute CHF exacerbation; cardiology following Code: Full Patient seen and examined with attending Dr. Parnell and senior residents Dr. Craig and Dr. Emely Pastrana, PGY-1 LI discussed with and supervised the marketing research intern physician who took care of this patient. I personally saw and examined the patient and discussed the assessment and plan with the entire medicine team, including my attending Dr. Joon Parnell MD. I agree with the assessment and plan as documented above. Patient interviewed and examined at bedside this a.m. Patient underwent thoracentesis of the right side with drainage of approximately 1.9 L. Fluid analysis of pleural fluid appears to be transudative in etiology which can be attributed to heart failure. Patient notes marked improvement of his symptoms of shortness of breath. Also noted to have decrease in lower extremity edema. Patient's oxygenation is also trending downwards with requirement of 4 L of supplemental oxygen via nasal cannula down from 15 L via oxy mask. Will continue aggressive diuresis as per cardiology service recommendations of Bumex 2 mg IV twice daily. Fili Craig M.D. Internal Medicine PGY-3 Attending Provider Attestation/Addendum I have examined the patient, reviewed labs and imaging findings, discussed the case with the resident(s), and reviewed entered orders. I agree with the plan of care as outlined in this note, with these additional summaries/recommendations: # Acute hypoxic respiratory failure Likely multifactorial secondary to new onset CHF, bilateral small pulmonary emboli, PNA?, and pleural effusions. Continue high flow nasal cannula and wean as tolerated Breathing treatments as needed # Acute CHF exacerbation (EF 25%) # Bilateral pleural effusions (transudative) No previous history of heart failure per patient Presented with shortness of breath BNP greater than 3280, chest x-ray showed prominent vascular congestion with perihilar edema, weight on admission 86.18 kg Unclear trigger for new onset CHF ECHO: Dilated cardiomyopathy with severe global hypokinesis, severe systolic dysfunction, EF 25% Cardiology consulted, recommendations appreciated Monitor on telemetry, lipid panel, A1c, EKG as needed, TSH Strict I's and O's and fluid restriction Continue with Bumex 2 mg IV twice daily uptitrate goal-directed medical therapy as tolerated Plan: Cardiology following, continue aggressive diuresis, status post left thoracentesis on 10/17 with 1900 cc fluid removed and status post thoracentesis 10/18 on the right side with 1900 cc fluid removed. # Pulmonary embolism CTA chest showed small bilateral pulmonary artery emboli in right upper lobe and right lower lobe although difficult to discern on CTA. Provoked in the setting of recent BKA indicating 3 to 6 months of anticoagulation Status post heparin drip and will transition to oral NOAC after thoracentesis #?Community-acquired pneumonia Patient does endorse productive cough and has WBC count of 11.4 Chest x-ray significant for possible superimposed pneumonia right base Patient recently hospitalized Continue IV cefepime for now and follow-up blood/sputum cultures # Troponinemia Likely secondary to demand ischemia in the setting of acute hypoxic respiratory failure Troponin peaked at 1.10 No further need to trend troponin for now Continue to monitor # Diabetes mellitus type 2 09/23/24 A1C 6.7% Continue insulin sliding scale with Accu-Cheks Target blood sugar of 140-180 while hospitalized # Primary hypertension Continue home antihypertensives as tolerated Dr. Parnell
--- NOTE | 2024-10-18 13:35 | ESPR_ITS ---
<Statement entered by Rosendo Ledezma MD - 10/21/24 08:58> Personally examined the patient in the telemetry is improving telemetry is improving diuresing well with IV bumetanide injection patient continues to diurese well. Clinically improving he has HFrEF ejection fraction only 25% possible ischemic versus nonischemic cardiomyopathy. I do not think patient has pulmonary embolus clinically no evidence of pulmonary embolus review of the CT scan also did not see much of evidence of significant pulmonary emboli hence no need for anticoagulation. Continue diurese aggressively start on Entresto and low-dose beta-santos as tolerated agree with the treatment plan recommendation as formulated by Dr. Dorsey PGY 2 patient will require workup for coronary artery disease as an outpatient Documentation for date of: 10/18/24 Subjective Subjective Interval history: The patient is a 64-year-old male with a past medical history of severe peripheral arterial occlusive disease, hypertension, hypercholesterolemia, diabetes mellitus type 2, who had a [id number] amputation on 09/29/2024, discharged home on 10/06/2024, at that time chest x-ray was clear, came to the hospital with severe shortness of breath for last 2 or 3 days with increasing productive cough and chills and low-grade fever increased. There is no chest pain. Initial assessment showed possible pneumonia, congestive heart failure. CT scan showed evidence of extensive bilateral pleural effusion, congestive heart failure reported as pneumonia as well, but mostly congestive heart failure.Laboratory data showed markedly elevated BNP levels of 3280. Initial troponin was mildly elevated at 1.10 and subsequently has come down to 0.83. Other lab data showed blood glucose 127, creatinine is 1.1. The rest of lab data showed white count is elevated as well initially, mildly elevated at 11.7, hemoglobin 9.2, hematocrit 29. He is feeling little better, still has severe shortness breath, appears to have acutely decompensated congestive heart failure. PMH: As above Allergies: NKDA Home medications: Eliquis 2.5 mg twice daily, amlodipine 5 mg daily, bronchodilators, antibiotics at home 10/17/2024: Patient was seen and examined at the bedside. Patient was initially on high flow nasal cannula switched to nasal cannula on 4 L saturating well above 90%. Patient underwent left-sided thoracentesis today without complication.Labs revealed slightly improvement in white count, drop in hemoglobin mildly. Electrolytes showed hypokalemia. Kidney functions stable with GFR above 60. Recommended to continue IV diuretic therapy aggressively with Bumex 2 mg twice a day. Strict [place]'s, fluid restriction and daily weight. Replete electrolytes as necessary.Patient will undergo left-sided thoracentesis for pleural effusion. Echocardiogram showed Dilated cardiomyopathy severe global hypokinesis severe systolic dysfunction ejection fraction of 25%.Mitral valve thickening mild mitral regurgitation.Mild tricuspid regurgitation.Evidence of large left pleural effusion is present.Continue treating underlying sepsis with antibiotic therapy due to community-acquired pneumonia and recommended to discontinue heparin drip for now and if hemoglobin remains stable will likely discharge on Eliquis starter pack for 3 months. All labs and orders were reviewed. 10/18/24: Patient was seen and examined at the bedside. Patient was seen on nasal cannula. Vitals showed BP 133/86. Labs showed leukocytosis Hgb at 7.8.Mild hypokalemia,hypomagnesemia. Kidney functions are stable. Patient is undergoing thoracentesis for the right side removed 1900 cc, Rec to continue diuresis with bumex, add entersto 24/26 mg bid added spironolactone 25 mg once a day and carvedilol 3.125 mg twice daily. Discontinued amlodipine. Monitor vitals closely given soft blood pressure. All labs and orders were reviewed. Exam Vital Signs Temp Pulse Resp BP Pulse Ox O2 Del Method O2 Flow Rate 96.9 F 90 20 133/86 H 99 Nasal Cannula 6 10/18/24 12:00 10/18/24 12:00 10/18/24 12:00 10/18/24 12:00 10/18/24 12:00 10/18/24 12:00 10/18/24 12:00 FiO2 55 10/18/24 12:00 Narrative Exam GENERAL: Patient appears older than stated age. He is seen on on 4 L nasal cannula. HEENT: NC/AT. Moist mucosa. PERRLA/EOMI. prominent JVD CARDIO: Heart RRR, no obvious murmurs, PULM: Wheezing noted bilaterally both upper and lower lung [place]; no crackles/Rales/rhonchi GI: Abdomen soft, NT/ND, +BS. MSK/EXT: Left lower extremity below-knee amputation. 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 and left upper extremity, below-knee amputation left lower extremity Psych: Appropriate mood and affect Objective Labs 10/18/24 04:42 10/18/24 04:42 Labs: Laboratory Results - last 24 hr 10/17/24 10/18/24 14:45 04:42 WBC 11.4 H RBC 2.83 L Hgb 7.8 L Hct 24.6 L MCV 87 MCH 27.6 MCHC 31.7 RDW Std Deviation 50.7 H Plt Count 316 Neut % (Auto) 80 Lymph % (Auto) 10 [place] % (Auto) 8 Eos % (Auto) 1 Baso % (Auto) 0 Neut # (Auto) 9.1 H Lymph # (Auto) 1.2 [place] # (Auto) 0.9 H Eos # (Auto) 0.1 Baso # (Auto) 0.0 Immature Gran # (Auto) 0.07 H Absolute Nucleated RBC 0.00 Immature Gran % 1 H Nucleated RBC % 0 Sodium 140 Potassium 3.1 L Chloride 104 Carbon Dioxide 28.4 Anion Gap 8 BUN 27 H Creatinine 1.2 Estim Creat Clear Calc 69.2 eGFR > 60 BUN/Creatinine Ratio 23 H Glucose 146 H Calculated Osmolality 287 Calcium 7.9 L Corrected Calcium 8.8 Phosphorus 3.0 Magnesium 1.5 L Total Bilirubin 0.3 AST 20 ALT 21 Alkaline Phosphatase 105 D Total Protein 5.2 L Albumin 2.9 L Globulin 2.3 Albumin/Globulin Ratio 1.3 Pleural Color Straw Pleural Appearance Hazy Pleural WBC 132 Pleural RBC 0 Pleural Polynuclear WBC 71 Pleural Mononuclear WBC 29 Pleural Total Protein < 2.0 Pleural LDH 54 Pleural Glucose 140 Pleural Amylase < 20 ABG Interpretation ABG results: 10/15/24 10/16/24 21:23 01:41 ABG pH 7.22 L 7.36 D ABG pCO2 63 H 45 D ABG pO2 65 L 69 L ABG HCO3 26 25 ABG O2 Saturation 90 L 95 ABG Base Excess -3 0 Quality Measures Quality Measures VTE prophylaxis Assessment & Plan Assessment Current Active Medications: Generic Name Dose Route Start Last Admin Trade Name Freq PRN Reason Stop Dose Admin Acetaminophen 650 mg 10/15/24 20:47 10/18/24 09:16 Acetaminophen 325 Mg Tablet PO 11/14/24 20:46 650 mg Q6HR PRN Administration Mild Pain 1-3 or Fever >100.3 Amlodipine Besylate 5 mg 10/15/24 21:00 10/17/24 21:05 Amlodipine Besylate 5 Mg Tablet PO 11/14/24 20:59 5 mg HS JAZMÍN Administration Atorvastatin Calcium 40 mg 10/15/24 21:00 10/17/24 21:04 Atorvastatin Calcium 20 Mg Tablet PO 11/14/24 20:59 40 mg HS JAZMÍN Administration Bumetanide 2 mg 10/16/24 12:30 10/18/24 08:59 Bumetanide Inj 0.25 Mg/Ml Vial 4 Ml IVP 11/15/24 12:29 2 mg BID JAZMÍN Administration Dextrose 25 ml 10/15/24 20:31 Dextrose 50%-Water Inj 50 Ml Syringe IV 11/14/24 20:30 Q15MIN PRN BG 50-70 responsive npo pt Dextrose 50 ml 10/15/24 20:31 Dextrose 50%-Water Inj 50 Ml Syringe IV 11/14/24 20:30 Q15MIN PRN BG <50 OR BG <70 & pt unresponsive Glucagon 1 mg 10/15/24 20:31 Glucagon Inj 1 Mg Vial IM Q15MIN PRN BG <70, and no IV access Cefepime HCl 2 gm/ Sodium 50 mls @ 100 mls/hr 10/15/24 20:22 10/18/24 05:34 Chloride IV 10/22/24 20:21 100 mls/hr Q8HR JAZMÍN Administration Insulin Glargine 12 unit 10/17/24 21:00 10/17/24 21:05 Insulin Glargine (Lantus) 5 Unit/0.05 Ml (Per 5 Units) SC 11/16/24 20:59 12 unit HS JAZMÍN Administration Insulin Human Lispro 0 unit 10/17/24 11:30 10/18/24 11:55 Insulin Lispro (Admelog) 1 Unit/0.01 Ml Unit SC 11/16/24 11:29 1 unit AC JAZMÍN Administration Protocol Insulin Human Lispro 1 unit 10/17/24 11:30 10/18/24 11:55 Insulin Lispro (Admelog) 1 Unit/0.01 Ml Unit SC 11/16/24 11:29 1 unit AC JAZMÍN Administration Levalbuterol HCl 0.31 mg 10/16/24 13:33 10/16/24 23:12 Levalbuterol Rt 0.31 Mg/3 Ml Nebu INH 11/15/24 13:32 0.31 mg Q8HR PRN Administration WHEEZING Lorazepam 0.5 mg 10/15/24 18:33 10/18/24 09:17 Lorazepam 2 Mg/Ml Vial IVP 10/20/24 20:59 0.5 mg BID PRN Administration ANXIETY Melatonin 3 mg 10/16/24 02:15 10/17/24 21:04 Melatonin 3 Mg Tablet PO 11/15/24 02:14 3 mg HS JAZMÍN Administration Sennosides 1 tab 10/16/24 15:32 Senna Tablet PO 11/15/24 15:31 QDAY PRN CONSTIPATION Protocol Plan This 64-year-old male with a past medical history of hypertension, hyperlipidemia, diabetes mellitus type 2 insulin-dependent and a recent history of BKA who was admitted on 10/15/2024 for acute respiratory failure and sepsis secondary to community acquired pneumonia. # Acute hypoxic respiratory failure # Likely secondary to acute decompensated CHF versus right base pneumonia versus bilateral PE versus pleural effusions, multifactorial # Ischemic cardiomyopathy given underlying history of PAD # Dilated cardiomyopathy HFrEF ejection fraction 25% # Post thoracentesis for left sided pleural effusion # Post thoracentesis for right-sided pleural effusion # History of peripheral arterial occlusive disease # History of hypertension ? Patient presented with shortness of breath. BNP> 30-80. Chest x-ray was significant for prominent vascular congestion with perihilar edema. No previous history of heart failure. ? Patient showed urine output of 3.6 L with negative balance of 1.3. ?Chest CTA showed positive for small bilateral pulmonary artery emboli, right upper lobe and right lower lobe pulmonary artery branches ?Echocardiogram showed Dilated cardiomyopathy severe global hypokinesis severe systolic dysfunction ejection fraction of 25%.Mitral valve thickening mild mitral regurgitation.Mild tricuspid regurgitation.Evidence of large left pleural effusion is present. ? Patient underwent left-sided thoracentesis removed 1900 cc today Plan: ? Recommended to start Entresto 1 twice daily, started spironolactone 25 mg once a day and carvedilol 3.125 mg twice daily and continue same diuresis with Bumex 2 mg twice daily for now ? Discontinue amlodipine ? Patient underwent right-sided thoracentesis 1900 cc ? Recommended to continue IV diuretic therapy Bumex 2 mg twice a day ? Continue fluid restriction, strict [place]'s and daily weight ? Continue breathing treatments ? Recommended to DC heparin drip and will likely give Eliquis starter pack in case of stable hemoglobin as less likely suspicious for PE ? Follow-up on pleural fluid analysis and cytology ? Continue IV antibiotic therapy ? Replete electrolytes as necessary ? Daily labs ? Keep magnesium above 2 and potassium above 4 ? Oxygen as needed # NSTEMI type II likely supply demand ischemia # History of hypertension ? Patient presented with worsening shortness of breath. EKG showed sinus tachycardia with occasional PVCs. QTc 459. Plan: ?Troponin I down trended to 0.830 ? Continue home medications #Hypokalemia and hypomagnesemia # Pulmonary embolism, likely provoked # Sepsis likely secondary to community-acquired pneumonia # History of diabetes type 2 # Status post below-knee amputation, left lower extremity # Normocytic anemia # Leukocytosis # Electrolyte disturbance # Hypokalemia Rest of the management as per primary care team. Thank you very much for consulting cardiology team. Recommended to continue IV diuretic therapy with Bumex 2 mg twice a day, add entersto 24/26 mg, spironolactone 25 mg once a day and carvedilol 3.125 mg twice daily,strict [place]'s, fluid restriction and daily weight. Plan of care discussed with workers compensation claims analyst, Dr. Darien Dorsey MD, PGY 2
[2024-10-18] MEDS: MELATONIN 3 MG TABLET PO (21:15)
[2024-10-18] MEDS: SACUBITRIL 24 MG/VALSARTAN 26 MG TABLET 1 TAB PO (21:15)
[2024-10-18] MEDS: ATORVASTATIN CALCIUM 20 MG TABLET 40 MG PO (21:15)
[2024-10-18] MEDS: INSULIN GLARGINE (Lantus) 5 UNIT/0.05 ML (PER 5 UNITS) 12 UNIT SC (21:16)
[2024-10-19] VITALS (13 sets, daily range): BP systolic 96–139; BP diastolic 67–88; PULSE 70–95; RESP 18–95; TEMP 36.1–36.6; O2SAT 93–100; BMI 23.8
[2024-10-19] MEDS: CEFEPIME INJ 2 GM in SODIUM CHLORIDE 0.9% (P) 50 ML IV ×3 (05:03→21:07)
[2024-10-19 05:33] LABS: Basophils # (Auto) 0.1 Thou/mm3 (0.0-0.2); Basophils % (Auto) 1 % (0-2.5); Eosinophils # (Auto) 0.2 Thou/mm3 (0.0-0.5); Eosinophils % (Auto) 2 % (0-10); Hematocrit 25.3 % (41.0-53.0); Immature Granulocytes % (Auto) 1 % (0-0); Immature Granulocytes Auto 0.08 Thou/mm3 (0.00-0.00); Lymphocytes # (Auto) 1.7 Thou/mm3 (1.0-4.8); Lymphocytes % (Auto) 13 % (10-50); Mean Corpuscular HGB Conc 32.8 g/dl (31.0-37.0); Mean Corpuscular Hemoglobin 28.3 pg (25.0-35.0); Mean Corpuscular Volume 86 fL (80-100); Monocytes # (Auto) 0.8 Thou/mm3 (0.0-0.8); Monocytes % (Auto) 7 % (0-12); Neutrophils # (Auto) 9.7 Thou/mm3 (1.8-7.7); Neutrophils % (Auto) 77 % (37-80); Nucleated Red Blood Cell % 0 /100 WBC (0); Platelet Count 291 Thou/mm3 (140-440); RDW Standard Deviation 49.3 fL (35.1-43.9); Red Blood Count 2.93 Miln/mm3 (4.50-5.90); White Blood Count 12.6 Thou/mm3 (3.8-10.6)
[2024-10-19 05:34] LABS: Hemoglobin 8.3 g/dL (13.5-16.0)
[2024-10-19 06:32] LABS: Alanine Aminotransferase 17 U/L (10-49); Albumin, Serum 2.7 gm/dL (3.4-4.8); Albumin/Globulin Ratio 1.2 (1.2-2.2); Alkaline Phosphatase 98 U/L (46-116); Anion Gap 7 (7-16); Aspartate Amino Transferase 14 U/L (0-34); BUN/Creatinine Ratio 24 Ratio (12-20); Bilirubin,Total 0.3 mg/dL (0.3-1.2); Blood Urea Nitrogen 26 mg/dL (9-23); Calcium 7.5 mg/dL (8.3-10.6); Calcium (Corrected) 8.5 mg/dL (8.5-10.1); Carbon Dioxide 29.3 mMol/L (20.0-31.0); Chloride 101 mMol/L (98-107); Creatinine (Component) 1.1 mg/dL (0.6-1.3); Estimated Creatinine Clearance 75.4 mL/min (>60); Globulin 2.3 gm/dL (2.3-3.5); Glucose 102 mg/dL (74-106); Osmolality,Calculated 278 (275-295); Potassium 2.8 mMol/L (3.4-5.1); Sodium 137 mMol/L (136-145); eGFR > 60 See Note
[2024-10-19 08:28] LABS: Magnesium 1.5 mg/dL (1.6-2.6)
[2024-10-19] MEDS: SPIRONOLACTONE 25 MG TABLET PO (09:03)
[2024-10-19] MEDS: guaiFENesin SYRUP 200 MG/10 ML UDC 100 MG PO ×2 (09:04→21:06)
[2024-10-19] MEDS: SACUBITRIL 24 MG/VALSARTAN 26 MG TABLET 1 TAB PO ×2 (09:04→21:07)
[2024-10-19] MEDS: carVEDILOL 3.125 MG TABLET PO ×2 (09:04→18:02)
[2024-10-19] MEDS: POTASSIUM CHL 10 mEq IVPB 10 MEQ/100 ML BAG 50 MEQ IV ×4 (09:05→15:42)
[2024-10-19] MEDS: BUMETANIDE INJ 0.25 MG/ML VIAL 4 ML 2 MG IVP (09:05)
[2024-10-19] MEDS: POTASSIUM CHLORIDE 20 mEq TABCR 40 MEQ PO (09:05)
--- NOTE | 2024-10-19 10:25 | PC.SS ---
Addendum entered by Beatrice Estrada 10/19/24 15:14: Follow up note: SS spoke to Elis @ [facility] and if patient is positive for cdiff they will still take patient back tomorrow. Original Note: Follow up note: Possible late discharge today per physician. D/c to [facility] aware.
[2024-10-19] MEDS: APIXABAN 2.5 MG TABLET 10 MG PO (11:02)
[2024-10-19] MEDS: Magnesium Sulfate 4 GM Ivpb 4 GM/50 ML BAG IV (11:10)
--- NOTE | 2024-10-19 13:42 | ESPR_ITS ---
<Statement entered by Florinda Han MD - 10/20/24 05:55> Patient seen and examined at bedside. Patient is tolerating 3L NC well and started GDMT slowly. However, patient now is complaining of watery diarrhea, and will test for C.difficile. Of note, patient tested positive for C.difficile 09/23/24, and reportedly completed course with Fidoximicin based on prior notes. Will consider starting PO Abx if patient tests positive. Dr. Vivar was also consulted to take a look at the stables for his L BKA. I discussed with and supervised the wireless internet installer physician who took care of this patient. I personally saw and examined the patient and discussed the assessment and plan with the entire medicine team, including my attending , I agree with most of the assessment and plan as documented below Florinda Han M.D. PGY-2 Documentation for date of: 10/19/24 Subjective Subjective Interval history: 10/19/2024: No acute overnight events to report. Patient seen and examined in hospital bed reporting improvement in presenting symptoms; denies having any shortness of breath, chest pain or palpitations. Cardiology has been following the patient and have started the patient on Entresto, spironolactone 25 mg p.o. daily, Coreg 3.125 mg p.o. twice daily secondary to HFrEF. Echo which was ordered read the following: Dilated cardiomyopathy severe global hypokinesis severe systolic dysfunction ejection fraction of 25%. Mitral valve thickening mild mitral regurgitation. Mild tricuspid regurgitation. Patient has been adequately diuresed, net negative about 4.2 L out and the patient has lost nearly 5 kg of weight. Diuretics have been changed from IV Bumex to 1 mg Bumex p.o. twice daily per cardiology recommendations. Patient was also having some new diarrhea; from prior admission was tested positive for C. difficile toxin, as a result will reorder C. difficile PCR and put him on contact precautions. Also contacted Dr. Vivar, general surgery, as the patient was supposed to follow-up with them outpatient status post BKA of the left extremity due to osteomyelitis. Exam Vital Signs Temp Pulse Resp BP Pulse Ox O2 Del Method O2 Flow Rate 96.9 F 95 22 H 139/82 H 93 L Nasal Cannula 3 10/19/24 08:00 10/19/24 09:15 10/19/24 09:15 10/19/24 09:05 10/19/24 09:15 10/19/24 04:00 10/19/24 04:00 FiO2 55 10/18/24 16:00 Narrative Exam Physical Exam: GENERAL: On 3L nasal cannula, in no respiratory distress, answering questions appropriately, appears older than stated age HEENT: NC/AT. Moist mucosa. PERRLA/EOMI. CARDIO: Heart RRR, no obvious murmurs, no JVD. PULM: Mild, sporadic wheezing noted bilaterally both upper and lower lung [place]; no crackles/Rales/rhonchi GI: Abdomen soft, NT/ND, +BS. URO/QUALITY CONTROL MICROBIOLOGIST: +Azevedo catheter draining yellow urine SKIN/MSK/EXT: Nonpitting edema noted lower extremities. No wounds/discoloration/rashes/amputations. +Pedal pulses present B/L. 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, rod straightener strength 5/5, Moves extremities x4. Objective Labs 10/20/24 04:40 10/20/24 04:40 Labs: Laboratory Results - last 24 hr 10/19/24 04:30 WBC 12.6 H RBC 2.93 L Hgb 8.3 L Hct 25.3 L MCV 86 MCH 28.3 MCHC 32.8 RDW Std Deviation 49.3 H Plt Count 291 Neut % (Auto) 77 Lymph % (Auto) 13 [place] % (Auto) 7 Eos % (Auto) 2 Baso % (Auto) 1 Neut # (Auto) 9.7 H Lymph # (Auto) 1.7 [place] # (Auto) 0.8 Eos # (Auto) 0.2 Baso # (Auto) 0.1 Immature Gran # (Auto) 0.08 H Absolute Nucleated RBC 0.00 Immature Gran % 1 H Nucleated RBC % 0 Sodium 137 Potassium 2.8 L Chloride 101 Carbon Dioxide 29.3 Anion Gap 7 BUN 26 H Creatinine 1.1 Estim Creat Clear Calc 75.4 eGFR > 60 BUN/Creatinine Ratio 24 H Glucose 102 Calculated Osmolality 278 Calcium 7.5 L Corrected Calcium 8.5 Magnesium 1.5 L Total Bilirubin 0.3 AST 14 ALT 17 Alkaline Phosphatase 98 Total Protein 5.0 L Albumin 2.7 L Globulin 2.3 Albumin/Globulin Ratio 1.2 ABG Interpretation ABG results: 10/15/24 10/16/24 21:23 01:41 ABG pH 7.22 L 7.36 D ABG pCO2 63 H 45 D ABG pO2 65 L 69 L ABG HCO3 26 25 ABG O2 Saturation 90 L 95 ABG Base Excess -3 0 Quality Measures Quality Measures VTE prophylaxis Assessment & Plan Assessment Current Active Medications: Generic Name Dose Route Start Last Admin Trade Name Freq PRN Reason Stop Dose Admin Acetaminophen 650 mg 10/15/24 20:47 10/18/24 09:16 Acetaminophen 325 Mg Tablet PO 11/14/24 20:46 650 mg Q6HR PRN Administration Mild Pain 1-3 or Fever >100.3 Apixaban 10 mg 10/19/24 10:30 10/19/24 11:02 Apixaban 2.5 Mg Tablet PO 10/25/24 21:01 10 mg BID JAZMÍN Administration Atorvastatin Calcium 40 mg 10/15/24 21:00 10/18/24 21:15 Atorvastatin Calcium 20 Mg Tablet PO 11/14/24 20:59 40 mg HS JAZMÍN Administration Bumetanide 1 mg 10/20/24 09:00 Bumetanide 0.5 Mg Tablet PO 11/19/24 08:59 BID JAZMÍN Carvedilol 3.125 mg 10/19/24 09:00 10/19/24 09:04 Carvedilol 3.125 Mg Tablet PO 11/18/24 08:59 3.125 mg BIDWM JAZMÍN Administration Dextrose 25 ml 10/15/24 20:31 Dextrose 50%-Water Inj 50 Ml Syringe IV 11/14/24 20:30 Q15MIN PRN BG 50-70 responsive npo pt Dextrose 50 ml 10/15/24 20:31 Dextrose 50%-Water Inj 50 Ml Syringe IV 11/14/24 20:30 Q15MIN PRN BG <50 OR BG <70 & pt unresponsive Glucagon 1 mg 10/15/24 20:31 Glucagon Inj 1 Mg Vial IM Q15MIN PRN BG <70, and no IV access Guaifenesin 100 mg 10/18/24 21:00 10/19/24 09:04 Guaifenesin Syrup 200 Mg/10 Ml Udc PO 11/17/24 20:59 100 mg BID JAZMÍN Administration Protocol Cefepime HCl 2 gm/ Sodium 50 mls @ 100 mls/hr 10/15/24 20:22 10/19/24 05:41 Chloride IV 10/22/24 20:21 Infused Q8HR JAZMÍN Infusion Magnesium Sulfate 4 gm in 50 mls @ 12.5 mls/hr 10/19/24 10:24 10/19/24 11:10 Magnesium Sulfate Ivpb IV 10/19/24 14:23 12.5 mls/hr X1 ONE Administration Insulin Glargine 12 unit 10/17/24 21:00 10/18/24 21:16 Insulin Glargine (Lantus) 5 Unit/0.05 Ml (Per 5 Units) SC 11/16/24 20:59 12 unit HS JAZMÍN Administration Insulin Human Lispro 0 unit 10/17/24 11:30 10/19/24 12:38 Insulin Lispro (Admelog) 1 Unit/0.01 Ml Unit SC 11/16/24 11:29 Not Given AC [facility] Protocol Insulin Human Lispro 1 unit 10/17/24 11:30 10/19/24 12:39 Insulin Lispro (Admelog) 1 Unit/0.01 Ml Unit SC 11/16/24 11:29 Not Given AC [facility] Levalbuterol HCl 0.31 mg 10/16/24 13:33 10/16/24 23:12 Levalbuterol Rt 0.31 Mg/3 Ml Nebu INH 11/15/24 13:32 0.31 mg Q8HR PRN Administration WHEEZING Lorazepam 0.5 mg 10/15/24 18:33 10/18/24 09:17 Lorazepam 2 Mg/Ml Vial IVP 10/20/24 20:59 0.5 mg BID PRN Administration ANXIETY Melatonin 3 mg 10/16/24 02:15 10/18/24 21:15 Melatonin 3 Mg Tablet PO 11/15/24 02:14 3 mg HS JAZMÍN Administration Sacubitril/Valsartan 1 tab 10/18/24 21:00 10/19/24 09:04 Sacubitril 24 Mg/Valsartan 26 Mg Tablet PO 11/17/24 20:59 1 tab BID JAZMÍN Administration Sennosides 1 tab 10/16/24 15:32 Senna Tablet PO 11/15/24 15:31 QDAY PRN CONSTIPATION Protocol Spironolactone 25 mg 10/19/24 09:00 10/19/24 09:03 Spironolactone 25 Mg Tablet PO 11/18/24 08:59 25 mg QDAY JAZMÍN Administration Plan 64-year-old male with a past medical history of hypertension, hyperlipidemia, diabetes mellitus type 2 insulin-dependent and a recent history of BKA who was admitted on 10/15/2024 for acute respiratory failure and sepsis secondary to community acquired pneumonia. #Acute Hypoxic Respiratory Failure, Improving Likely secondary to new Acute CHF exacerbation versus right base pneumonia or bilateral pulmonary embolism vs. multifactorial Patient presented from custodial facility with shortness of breath which started on 10/14 and has progressively worsened In the ED, patient met 3 out of 4 SIRS criteria; HR 114, RR 28, WBC 11.7 ABG: ABG 7.44, pCO2 38, pO 115 Troponin 1.100, 0.800 BNP>3280 EKG sinus tachycardia with irregular RR intervals; P waves present Chest x-ray 10/15 shows: moderate CHF, prominent vascular congestion w/perihilar edema, and superimposed pneumonia right base CTA 10/15 shows: moderate CHF. Positive for small bilateral pulmonary artery emboli, right upper lobe and right lower lobe pulmonary artery branches. Left-sided ultrasound thoracentesis for pleural effusion completed; 1.9L fluid removed Passed speech eval 10/16 Blood cultures no growth 48 hours Sputum cultures show +3 Mixed Lindsay Patient had R-sided thoracentesis with IR; with 1.9L removed Plan: Continue oxygen supplementation as needed Levalbuterol q8h scheduled Follow-up on pleural fluid gram stain, culture and cytology Continue cefepime 2 mg IV every 8 Aspiration Precautions #Acute Decompensated Heart Failure with EF <25%, Improving #Dilated Cardiomyopathy #New Congestive Heart Failure #NSTEMI type II #Hyperlipidemia ASCVD risk of 19.6% in next 10 years; High-intensity statin recommended because of known diabetes Patient does not follow cardiology outpatient; does not have history of heart disease Patient denies having any chest pain at this time Troponin, BNP and EKG findings as stated above Imaging studies as stated above Cardiology, Dr. Ledezma consulted appreciate recommendations TSH within normal limits Lipid panel from 09/23 within target Echo 10/17 shows: Dilated cardiomyopathy severe global hypokinesis severe systolic dysfunction ejection fraction of 25%. Mitral valve thickening mild mitral regurgitation. Mild tricuspid regurgitation. Evidence of large left pleural effusion is present. Plan: Will continue diuresing aggressively with 1 mg po Bumex twice daily K>4 and Mg >2 Continue home atorvastatin Fluid Restriction 1800 ml per day Oxygen as needed Daily Weights Strict Ins and Outs [place] in #Possible C. difficile? Patient tested positive for C. difficile from last admission, 09/23/2024 At that time, patient was adequately treated with both oral vancomycin and followed by for Valerie garcia (apparently refused vancomycin) Patient had not been having diarrhea during this current admission; however, received a call around noon that the patient is having diarrhea Patient has mild WBC increased less than 15 at this point and no fevers Plan: Contact precautions C. difficile toxin reordered #History of left BKA Patient has left BKA secondary to osteomyelitis Amputation completed by general surgery, Dr. Vivar Per chart checking, patient was supposed to follow-up with Dr. Vivar outpatient; however, has not. Plan: Consulted general surgery, Dr. Vivar. Appreciate recommendations. #Pulmonary Embolism, likely provoked Well's score at least 3, max 6; moderate risk Patient has been in a SNF and has been mostly bedbound secondary to a left BKA 2 weeks ago secondary to osteomyelitis of the third and fourth phalanges of left lower extremity Patient presented hypoxic with tachycardia as noted above CTA confirmed presence of suspected bilateral pulmonary embolism; cardiology doubts at this time and attributes respiratory failure to overt heart failure instead Plan: Has been off heparin gtt Will discharge patient with 3 month supply of Eliquis per cardiology recs #Hypertension Patient on home amlodipine 5 mg Plan: Continue home medication #Insulin-dependent type 2 diabetes Previous non-adherence to medication A1c 6.7 on 09/23/2024 Plan Increased Lantus 12 units HS Lispro 1 pre meals Continue sliding scale insulin Health Maintenance: Lines: PIV, Az[place] Bowel: Senna as needed Diet: Cardiac GI prophylaxis: Not needed DVT prophylaxis: SCD Dispo: Aggressive diuresis for suspected acute CHF exacerbation; cardiology following Code: Full Patient seen and examined with attending Dr. Parnell and senior residents Dr. Craig and Dr. Emely Pastrana, PGY-1 ELEAZAR discussed with and supervised the wireless internet installer physician who took care of this patient. I personally saw and examined the patient and discussed the assessment and plan with the entire medicine team, including my attending Dr. Joon Parnell MD. I agree with the assessment and plan as documented above. Fili Craig M.D. Internal Medicine PGY-3 Attending Provider Attestation/Addendum I have examined the patient, reviewed labs and imaging findings, discussed the case with the resident(s), and reviewed entered orders. I agree with the plan of care as outlined in this note, with these additional summaries/recommendations: # Acute hypoxic respiratory failure Likely multifactorial secondary to new onset CHF, bilateral small pulmonary emboli, PNA?, and pleural effusions. Continue high flow nasal cannula and wean as tolerated Breathing treatments as needed Plan: Off HFNC. On NC and 4L and will continue to wean as tolerated # Acute CHF exacerbation (EF 25%) # Bilateral pleural effusions (transudative) No previous history of heart failure per patient Presented with shortness of breath BNP greater than 3280, chest x-ray showed prominent vascular congestion with perihilar edema, weight on admission 86.18 kg Unclear trigger for new onset CHF ECHO: Dilated cardiomyopathy with severe global hypokinesis, severe systolic dysfunction, EF 25% Cardiology consulted, recommendations appreciated Monitor on telemetry, lipid panel, A1c, EKG as needed, TSH Strict I's and O's and fluid restriction Continue with Bumex 2 mg IV twice daily uptitrate goal-directed medical therapy as tolerated Plan: Cardiology following, continue aggressive diuresis, status post left thoracentesis on 10/17 with 1900 cc fluid removed and status post thoracentesis 10/18 on the right side with 1900 cc fluid removed. We will start GDT and monitor for today. # Pulmonary embolism- Ruled out CTA chest showed small bilateral pulmonary artery emboli in right upper lobe and right lower lobe although difficult to discern on CTA. Provoked in the setting of recent BKA indicating 3 to 6 months of anticoagulation Status post heparin drip No further anticoagulation required #?Community-acquired pneumonia Patient does endorse productive cough and has WBC count of 11.4 Chest x-ray significant for possible superimposed pneumonia right base Patient recently hospitalized Continue IV cefepime for now and follow-up blood/sputum cultures #? C. Diff Recently treated and had multiple loose stools today 10/19. Repeat C. Diff ordered and anticipate that this will be positive and will consult infectious disease for recurrent c. diff. # Troponinemia Likely secondary to demand ischemia in the setting of acute hypoxic respiratory failure Troponin peaked at 1.10 No further need to trend troponin for now Continue to monitor # Diabetes mellitus type 2 09/23/24 A1C 6.7% Continue insulin sliding scale with Accu-Cheks Target blood sugar of 140-180 while hospitalized # Primary hypertension Continue home antihypertensives as tolerated Dr. Parnell
--- NOTE | 2024-10-19 14:26 | ESPR_ITS ---
<Statement entered by Rosendo Ledezma MD - 10/21/24 09:05> I personally examined the patient reviewed the findings patient clinically improved significantly chest x-ray showed complete clearance of heart failure. Patient clearly admitted to hospital acutely decompensated systolic heart failure ejection fraction 25% new onset dilated cardiomyopathy will require workup for coronary artery disease following discharge. Reviewed the CT findings with radiologist again radiologist agrees that this may be an artifact no evidence of pulmonary emboli. DVT ultrasound also showed negative no need for anticoagulation considering recent history of bleeding requiring transfusion. Recommend discharging on diuretic Bumex along with Entresto beta- santos as tolerated and I will see him for follow-up to discuss about angiogram and possible assessment for coronary disease. Reviewed all the findings with team resident team treatment plan recommendations are reviewed with attending physician as well agree with the documentation as documented by Dr. Dorsey PGY 2 Documentation for date of: 10/19/24 Subjective Subjective Interval history: The patient is a 64-year-old male with a past medical history of severe peripheral arterial occlusive disease, hypertension, hypercholesterolemia, diabetes mellitus type 2, who had a [id number] amputation on 09/29/2024, discharged home on 10/06/2024, at that time chest x-ray was clear, came to the hospital with severe shortness of breath for last 2 or 3 days with increasing productive cough and chills and low-grade fever increased. There is no chest pain. Initial assessment showed possible pneumonia, congestive heart failure. CT scan showed evidence of extensive bilateral pleural effusion, congestive heart failure reported as pneumonia as well, but mostly congestive heart failure.Laboratory data showed markedly elevated BNP levels of 3280. Initial troponin was mildly elevated at 1.10 and subsequently has come down to 0.83. Other lab data showed blood glucose 127, creatinine is 1.1. The rest of lab data showed white count is elevated as well initially, mildly elevated at 11.7, hemoglobin 9.2, hematocrit 29. He is feeling little better, still has severe shortness breath, appears to have acutely decompensated congestive heart failure. PMH: As above Allergies: NKDA Home medications: Eliquis 2.5 mg twice daily, amlodipine 5 mg daily, bronchodilators, antibiotics at home 10/17/2024: Patient was seen and examined at the bedside. Patient was initially on high flow nasal cannula switched to nasal cannula on 4 L saturating well above 90%. Patient underwent left-sided thoracentesis today without complication.Labs revealed slightly improvement in white count, drop in hemoglobin mildly. Electrolytes showed hypokalemia. Kidney functions stable with GFR above 60. Recommended to continue IV diuretic therapy aggressively with Bumex 2 mg twice a day. Strict [place]TA[place]'s, fluid restriction and daily weight. Replete electrolytes as necessary.Patient will undergo left-sided thoracentesis for pleural effusion. Echocardiogram showed Dilated cardiomyopathy severe global hypokinesis severe systolic dysfunction ejection fraction of 25%.Mitral valve thickening mild mitral regurgitation.Mild tricuspid regurgitation.Evidence of large left pleural effusion is present.Continue treating underlying sepsis with antibiotic therapy due to community-acquired pneumonia and recommended to discontinue heparin drip for now and if hemoglobin remains stable will likely discharge on Eliquis starter pack for 3 months. All labs and orders were reviewed. 10/18/24: Patient was seen and examined at the bedside. Patient was seen on nasal cannula. Vitals showed BP 133/86. Labs showed leukocytosis Hgb at 7.8.Mild hypokalemia,hypomagnesemia. Kidney functions are stable. Patient is undergoing thoracentesis for the right side removed 1900 cc, Rec to continue diuresis with bumex, add entersto 24/26 mg bid added spironolactone 25 mg once a day and carvedilol 3.125 mg twice daily. Discontinued amlodipine. Monitor vitals closely given soft blood pressure. All labs and orders were reviewed. 10/19/2024: Patient was seen and examined at the bedside. Patient reports improvement in his symptoms. Vitals revealed mild elevated blood pressure, tachypnea and saturating 93%. NC. Morning labs reviewed white count 12.6, hemoglobin stable at 8.3. Chemistry panel showed hypokalemia 2.8. Kidney functions showing BUN 26 and creatinine 1.1. Hypomagnesemia 1.5. Recommended to continue p.o. Bumex 1 twice daily, carvedilol 3.125 mg twice daily and replete electrolytes magnesium and potassium x 1. Continue spironolactone 25 mg once a day and Entresto 1 twice daily.Eliquis discontinued given possible artifact seen on CTA chest and primary team was notified to ma eliquis. Primary team placed the patient on contact precautions given recently tested positive for C. difficile toxin however they are repeating the test. Continue IV antibiotic therapy for treating pneumonia. All labs and orders were reviewed. Exam Vital Signs Temp Pulse Resp BP Pulse Ox O2 Del Method O2 Flow Rate 96.9 F 95 22 H 139/82 H 93 L Nasal Cannula 3 10/19/24 08:00 10/19/24 09:15 10/19/24 09:15 10/19/24 09:05 10/19/24 09:15 10/19/24 04:00 10/19/24 04:00 FiO2 55 10/18/24 16:00 Narrative Exam GENERAL: Patient appears older than stated age. He is seen on on 3 L nasal cannula. HEENT: NC/AT. Moist mucosa. PERRLA/EOMI. prominent JVD CARDIO: Heart RRR, no obvious murmurs, PULM: Wheezing noted bilaterally both upper and lower lung [place]; no crackles/Rales/rhonchi GI: Abdomen soft, NT/ND, +BS. MSK/EXT: Left lower extremity below-knee amputation. 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 and left upper extremity, below-knee amputation left lower extremity Psych: Appropriate mood and affect Objective Labs 10/19/24 04:30 10/19/24 14:18 Labs: Laboratory Results - last 24 hr 10/19/24 04:30 WBC 12.6 H RBC 2.93 L Hgb 8.3 L Hct 25.3 L MCV 86 MCH 28.3 MCHC 32.8 RDW Std Deviation 49.3 H Plt Count 291 Neut % (Auto) 77 Lymph % (Auto) 13 Saunders % (Auto) 7 Eos % (Auto) 2 Baso % (Auto) 1 Neut # (Auto) 9.7 H Lymph # (Auto) 1.7 Saunders # (Auto) 0.8 Eos # (Auto) 0.2 Baso # (Auto) 0.1 Immature Gran # (Auto) 0.08 H Absolute Nucleated RBC 0.00 Immature Gran % 1 H Nucleated RBC % 0 Sodium 137 Potassium 2.8 L Chloride 101 Carbon Dioxide 29.3 Anion Gap 7 BUN 26 H Creatinine 1.1 Estim Creat Clear Calc 75.4 eGFR > 60 BUN/Creatinine Ratio 24 H Glucose 102 Calculated Osmolality 278 Calcium 7.5 L Corrected Calcium 8.5 Magnesium 1.5 L Total Bilirubin 0.3 AST 14 ALT 17 Alkaline Phosphatase 98 Total Protein 5.0 L Albumin 2.7 L Globulin 2.3 Albumin/Globulin Ratio 1.2 ABG Interpretation ABG results: 10/15/24 10/16/24 21:23 01:41 ABG pH 7.22 L 7.36 D ABG pCO2 63 H 45 D ABG pO2 65 L 69 L ABG HCO3 26 25 ABG O2 Saturation 90 L 95 ABG Base Excess -3 0 Quality Measures Quality Measures VTE prophylaxis Assessment & Plan Assessment Current Active Medications: Generic Name Dose Route Start Last Admin Trade Name Freq PRN Reason Stop Dose Admin Acetaminophen 650 mg 10/15/24 20:47 10/18/24 09:16 Acetaminophen 325 Mg Tablet PO 11/14/24 20:46 650 mg Q6HR PRN Administration Mild Pain 1-3 or Fever >100.3 Apixaban 10 mg 10/19/24 10:30 10/19/24 11:02 Apixaban 2.5 Mg Tablet PO 10/25/24 21:01 10 mg BID JAZMÍN Administration Atorvastatin Calcium 40 mg 10/15/24 21:00 10/18/24 21:15 Atorvastatin Calcium 20 Mg Tablet PO 11/14/24 20:59 40 mg HS JAZMÍN Administration Bumetanide 1 mg 10/20/24 09:00 Bumetanide 0.5 Mg Tablet PO 11/19/24 08:59 BID JAZMÍN Carvedilol 3.125 mg 10/19/24 09:00 10/19/24 09:04 Carvedilol 3.125 Mg Tablet PO 11/18/24 08:59 3.125 mg BIDWM JAZMÍN Administration Dextrose 25 ml 10/15/24 20:31 Dextrose 50%-Water Inj 50 Ml Syringe IV 11/14/24 20:30 Q15MIN PRN BG 50-70 responsive npo pt Dextrose 50 ml 10/15/24 20:31 Dextrose 50%-Water Inj 50 Ml Syringe IV 11/14/24 20:30 Q15MIN PRN BG <50 OR BG <70 & pt unresponsive Glucagon 1 mg 10/15/24 20:31 Glucagon Inj 1 Mg Vial IM Q15MIN PRN BG <70, and no IV access Guaifenesin 100 mg 10/18/24 21:00 10/19/24 09:04 Guaifenesin Syrup 200 Mg/10 Ml Udc PO 11/17/24 20:59 100 mg BID JAZMÍN Administration Protocol Cefepime HCl 2 gm/ Sodium 50 mls @ 100 mls/hr 10/15/24 20:22 10/19/24 05:41 Chloride IV 10/22/24 20:21 Infused Q8HR JAZMÍN Infusion Insulin Glargine 12 unit 10/17/24 21:00 10/18/24 21:16 Insulin Glargine (Lantus) 5 Unit/0.05 Ml (Per 5 Units) SC 11/16/24 20:59 12 unit HS JAZMÍN Administration Insulin Human Lispro 0 unit 10/17/24 11:30 10/19/24 12:38 Insulin Lispro (Admelog) 1 Unit/0.01 Ml Unit SC 11/16/24 11:29 Not Given AC JAZMÍN Protocol Insulin Human Lispro 1 unit 10/17/24 11:30 10/19/24 12:39 Insulin Lispro (Admelog) 1 Unit/0.01 Ml Unit SC 11/16/24 11:29 Not Given AC JAZMÍN Levalbuterol HCl 0.31 mg 10/16/24 13:33 10/16/24 23:12 Levalbuterol Rt 0.31 Mg/3 Ml Nebu INH 11/15/24 13:32 0.31 mg Q8HR PRN Administration WHEEZING Lorazepam 0.5 mg 10/15/24 18:33 10/18/24 09:17 Lorazepam 2 Mg/Ml Vial IVP 10/20/24 20:59 0.5 mg BID PRN Administration ANXIETY Melatonin 3 mg 10/16/24 02:15 10/18/24 21:15 Melatonin 3 Mg Tablet PO 11/15/24 02:14 3 mg HS JAZMÍN Administration Sacubitril/Valsartan 1 tab 10/18/24 21:00 10/19/24 09:04 Sacubitril 24 Mg/Valsartan 26 Mg Tablet PO 11/17/24 20:59 1 tab BID JAZMÍN Administration Sennosides 1 tab 10/16/24 15:32 Senna Tablet PO 11/15/24 15:31 QDAY PRN CONSTIPATION Protocol Spironolactone 25 mg 10/19/24 09:00 10/19/24 09:03 Spironolactone 25 Mg Tablet PO 11/18/24 08:59 25 mg QDAY JAZMÍN Administration Plan This 64-year-old male with a past medical history of hypertension, hyperlipidemia, diabetes mellitus type 2 insulin-dependent and a recent history of BKA who was admitted on 10/15/2024 for acute respiratory failure and sepsis secondary to community acquired pneumonia. # Acute hypoxic respiratory failure # Likely secondary to acute decompensated CHF versus right base pneumonia versus bilateral PE versus pleural effusions, multifactorial # Ischemic cardiomyopathy given underlying history of PAD # Dilated cardiomyopathy HFrEF EF 25% # Post thoracentesis for left and right sided pleural effusion # History of peripheral arterial occlusive disease # History of hypertension ? Patient presented with shortness of breath. BNP> 30-80. Chest x-ray was significant for prominent vascular congestion with perihilar edema. No previous history of heart failure. ? Patient showed urine output of 3.6 L with negative balance of 1.3. ?Chest CTA showed positive for small bilateral pulmonary artery emboli, right upper lobe and right lower lobe pulmonary artery branches ?Echocardiogram showed Dilated cardiomyopathy severe global hypokinesis severe systolic dysfunction ejection fraction of 25%.Mitral valve thickening mild mitral regurgitation.Mild tricuspid regurgitation.Evidence of large left pleural effusion is present. ? Patient underwent left-sided thoracentesis removed 1900 cc today ? Discontinue amlodipine ? Patient underwent right-sided thoracentesis 1900 cc Plan: ? Recommended to continue Entresto 24/ 1 twice daily, started spironolactone 25 mg once a day and carvedilol 3.125 mg twice daily and continue same diuresis with Bumex 1 twice daily ? Eliquis discontinued given possible artifact seen on CTA chest and primary team was notified to dc eliquis. ? Continue fluid restriction, strict [place]'s and daily weight ? Continue breathing treatments ? Follow-up on pleural fluid analysis and cytology ? Continue IV antibiotic therapy with cefepime ? Replete electrolytes as necessary ? Primary team repleted potassium and magnesium ? Daily labs ? Keep magnesium above 2 and potassium above 4 ? Oxygen as needed ? Contact precautions given positive C. difficile test follow-up and repeat testing # NSTEMI type II likely supply demand ischemia # History of hypertension ? Patient presented with worsening shortness of breath. EKG showed sinus tachycardia with occasional PVCs. QTc 459. Plan: ?Troponin I down trended to 0.830 ? Continue home medications # Possible C. difficile # Hypokalemia and hypomagnesemia # Pulmonary embolism, Resolved # Sepsis likely secondary to community-acquired pneumonia # History of diabetes type 2 # Status post below-knee amputation, left lower extremity # Normocytic anemia # Leukocytosis # Electrolyte disturbance # Hypokalemia Rest of the management as per primary care team. Thank you very much for consulting cardiology team. Recommended to continue p.o. diuretic therapy with Bumex 1 twice daily, entersto 24/26 mg, spironolactone 25 mg once a day and carvedilol 3.125 mg twice daily,strict [place]'s, fluid restriction and daily weight.Eliquis discontinued given possible artifact seen on CTA chest and primary team was notified to dc eliquis. Plan of care discussed with credit authorizer, Dr. Darien Dorsey MD, PGY 2
[2024-10-19 14:49] LABS: Anion Gap 6 (7-16); BUN/Creatinine Ratio 22 Ratio (12-20); Blood Urea Nitrogen 26 mg/dL (9-23); Calcium 7.4 mg/dL (8.3-10.6); Carbon Dioxide 28.6 mMol/L (20.0-31.0); Chloride 99 mMol/L (98-107); Creatinine (Component) 1.2 mg/dL (0.6-1.3); Estimated Creatinine Clearance 69.2 mL/min (>60); Glucose 246 mg/dL (74-106); Magnesium 1.5 mg/dL (1.6-2.6); Osmolality,Calculated 280 (275-295); Potassium 3.7 mMol/L (3.4-5.1); Sodium 134 mMol/L (136-145); eGFR > 60 See Note
[2024-10-19] MEDS: INSULIN LISPRO (AdmeLOG) 1 UNIT/0.01 ML UNIT SC ×2 (18:07)
[2024-10-19] MEDS: HYDROcodone/APAP 5/325 TABLET 1 TAB PO (18:38)
[2024-10-19] MEDS: ATORVASTATIN CALCIUM 20 MG TABLET 40 MG PO (21:07)
[2024-10-19] MEDS: MELATONIN 3 MG TABLET PO (21:07)
[2024-10-19] MEDS: INSULIN GLARGINE (Lantus) 5 UNIT/0.05 ML (PER 5 UNITS) 12 UNIT SC (21:17)
[2024-10-20] VITALS (10 sets, daily range): BP systolic 98–127; BP diastolic 62–76; PULSE 72–85; RESP 16–20; TEMP 36.2–36.6; O2SAT 98–100
[2024-10-20] MEDS: CEFEPIME INJ 2 GM in SODIUM CHLORIDE 0.9% (P) 50 ML IV ×2 (05:26→13:16)
[2024-10-20 06:12] LABS: Basophils # (Auto) 0.1 Thou/mm3 (0.0-0.2); Basophils % (Auto) 1 % (0-2.5); Eosinophils # (Auto) 0.3 Thou/mm3 (0.0-0.5); Eosinophils % (Auto) 2 % (0-10); Hematocrit 24.1 % (41.0-53.0); Immature Granulocytes % (Auto) 2 % (0-0); Immature Granulocytes Auto 0.22 Thou/mm3 (0.00-0.00); Lymphocytes # (Auto) 2.2 Thou/mm3 (1.0-4.8); Lymphocytes % (Auto) 17 % (10-50); Mean Corpuscular HGB Conc 32.4 g/dl (31.0-37.0); Mean Corpuscular Hemoglobin 28.4 pg (25.0-35.0); Mean Corpuscular Volume 88 fL (80-100); Monocytes # (Auto) 1.1 Thou/mm3 (0.0-0.8); Monocytes % (Auto) 9 % (0-12); Neutrophils # (Auto) 8.7 Thou/mm3 (1.8-7.7); Neutrophils % (Auto) 70 % (37-80); Nucleated Red Blood Cell % 0 /100 WBC (0); Platelet Count 272 Thou/mm3 (140-440); RDW Standard Deviation 50.1 fL (35.1-43.9); Red Blood Count 2.75 Miln/mm3 (4.50-5.90); White Blood Count 12.6 Thou/mm3 (3.8-10.6)
[2024-10-20 06:33] LABS: Hemoglobin 7.8 g/dL (13.5-16.0)
[2024-10-20 07:06] LABS: Alanine Aminotransferase 11 U/L (10-49); Albumin, Serum 2.6 gm/dL (3.4-4.8); Albumin/Globulin Ratio 1.2 (1.2-2.2); Alkaline Phosphatase 88 U/L (46-116); Anion Gap 5 (7-16); Aspartate Amino Transferase 10 U/L (0-34); BUN/Creatinine Ratio 25 Ratio (12-20); Bilirubin,Total 0.2 mg/dL (0.3-1.2); Blood Urea Nitrogen 32 mg/dL (9-23); Calcium 7.2 mg/dL (8.3-10.6); Calcium (Corrected) 8.3 mg/dL (8.5-10.1); Carbon Dioxide 30.2 mMol/L (20.0-31.0); Chloride 101 mMol/L (98-107); Creatinine (Component) 1.3 mg/dL (0.6-1.3); Estimated Creatinine Clearance 63.8 mL/min (>60); Globulin 2.2 gm/dL (2.3-3.5); Glucose 158 mg/dL (74-106); Magnesium 1.8 mg/dL (1.6-2.6); Osmolality,Calculated 281 (275-295); Phosphorous 2.3 mg/dL (2.4-5.1); Potassium 3.8 mMol/L (3.4-5.1); Sodium 136 mMol/L (136-145); Total Protein 4.8 gm/dL (5.7-8.2); eGFR > 60 See Note
[2024-10-20] MEDS: INSULIN LISPRO (AdmeLOG) 1 UNIT/0.01 ML UNIT SC ×6 (07:33→16:59)
[2024-10-20] MEDS: Magnesium Sulfate 4 GM Ivpb 4 GM/50 ML BAG IV (08:07)
[2024-10-20] MEDS: POTASSIUM PHOS 22.5 MMOL in SODIUM CHLORIDE 0.9% 500 ML 500 ML 82.778 MMOL IV (08:07)
[2024-10-20] MEDS: BUMETANIDE 0.5 MG TABLET 1 MG PO (08:07)
[2024-10-20] MEDS: guaiFENesin SYRUP 200 MG/10 ML UDC 100 MG PO (08:07)
[2024-10-20] MEDS: carVEDILOL 3.125 MG TABLET PO ×2 (08:08→17:01)
[2024-10-20] MEDS: DAPAGLIFLOZIN PROPANEDIOL 5 MG TABLET 10 MG PO (08:08)
[2024-10-20] MEDS: SPIRONOLACTONE 25 MG TABLET PO (08:09)
--- NOTE | 2024-10-20 08:16 | XR_ITS ---
Examination: Venous duplex lower extremity sonogram, bilateral. Date and time of exam: October 20, 2024 0846 hours INDICATIONS: Left foot amputation August 2024 Technique: Multiple sonographic images of the deep venous system have been obtained. B-mode/2-D grayscale imaging of vascular structures and Doppler spectral analysis (waveforms) and color performed Both legs are examined. Findings: Deep venous systems do not demonstrate abnormal echogenicity. All visualized deep veins exhibit compressibility. All visualized deep veins exhibit augmentation. Impression: Negative for deep vein thrombosis
[2024-10-20] MEDS: SACUBITRIL 24 MG/VALSARTAN 26 MG TABLET 1 TAB PO (08:25)
[2024-10-20 08:27] LABS: Clostridium Difficile PCR Positive (Negative)
--- NOTE | 2024-10-20 11:51 | PC.SS ---
Follow up note: Patient is positive for cdiff. SS updated SNF. They are okay taking patient back and placing in private room. Patient has d/c orders for today. He will return to [facility]. Patient does not have coverage for transport. Received [facility] for [facility] transport and needs 02. D/c set for 4:30p.m
--- NOTE | 2024-10-20 14:17 | ESPR_ITS ---
<Statement entered by Rosendo Ledezma MD - 10/23/24 12:48> The patient is examined by me personally in the telemetry along with the resident physician PGY 2 Dr. Dorsey patient is clinically improved significantly from heart failure point of view clearly does not have pulmonary emboli based on review with radiologist no anticoagulation necessary patient to be discharged on heart failure management with diuretics and beta-blockers as documented recommended. Patient does have cardiomyopathy ejection fraction 25% only will require workup for cardiomyopathy possibly ischemic etiology as an outpatient following discharge agree with the treatment plan recommendation and discharge recommendation as documented by PGY 2 Dr. Dorsey will monitor the patient will be happy to see as an outpatient. Documentation for date of: 10/20/24 Subjective Subjective Interval history: The patient is a 64-year-old male with a past medical history of severe peripheral arterial occlusive disease, hypertension, hypercholesterolemia, diabetes mellitus type 2, who had a [id number] amputation on 09/29/2024, discharged home on 10/06/2024, at that time chest x-ray was clear, came to the hospital with severe shortness of breath for last 2 or 3 days with increasing productive cough and chills and low-grade fever increased. There is no chest pain. Initial assessment showed possible pneumonia, congestive heart failure. CT scan showed evidence of extensive bilateral pleural effusion, congestive heart failure reported as pneumonia as well, but mostly congestive heart failure.Laboratory data showed markedly elevated BNP levels of 3280. Initial troponin was mildly elevated at 1.10 and subsequently has come down to 0.83. Other lab data showed blood glucose 127, creatinine is 1.1. The rest of lab data showed white count is elevated as well initially, mildly elevated at 11.7, hemoglobin 9.2, hematocrit 29. He is feeling little better, still has severe shortness breath, appears to have acutely decompensated congestive heart failure. PMH: As above Allergies: NKDA Home medications: Eliquis 2.5 mg twice daily, amlodipine 5 mg daily, bronchodilators, antibiotics at home 10/17/2024: Patient was seen and examined at the bedside. Patient was initially on high flow nasal cannula switched to nasal cannula on 4 L saturating well above 90%. Patient underwent left-sided thoracentesis today without complication.Labs revealed slightly improvement in white count, drop in hemoglobin mildly. Electrolytes showed hypokalemia. Kidney functions stable with GFR above 60. Recommended to continue IV diuretic therapy aggressively with Bumex 2 mg twice a day. Strict [place]'s, fluid restriction and daily weight. Replete electrolytes as necessary.Patient will undergo left-sided thoracentesis for pleural effusion. Echocardiogram showed Dilated cardiomyopathy severe global hypokinesis severe systolic dysfunction ejection fraction of 25%.Mitral valve thickening mild mitral regurgitation.Mild tricuspid regurgitation.Evidence of large left pleural effusion is present.Continue treating underlying sepsis with antibiotic therapy due to community-acquired pneumonia and recommended to discontinue heparin drip for now and if hemoglobin remains stable will likely discharge on Eliquis starter pack for 3 months. All labs and orders were reviewed. 10/18/24: Patient was seen and examined at the bedside. Patient was seen on nasal cannula. Vitals showed BP 133/86. Labs showed leukocytosis Hgb at 7.8.Mild hypokalemia,hypomagnesemia. Kidney functions are stable. Patient is undergoing thoracentesis for the right side removed 1900 cc, Rec to continue diuresis with bumex, add entersto 24/26 mg bid added spironolactone 25 mg once a day and carvedilol 3.125 mg twice daily. Discontinued amlodipine. Monitor vitals closely given soft blood pressure. All labs and orders were reviewed. 10/19/2024: Patient was seen and examined at the bedside. Patient reports improvement in his symptoms. Vitals revealed mild elevated blood pressure, tachypnea and saturating 93%. NC. Morning labs reviewed white count 12.6, hemoglobin stable at 8.3. Chemistry panel showed hypokalemia 2.8. Kidney functions showing BUN 26 and creatinine 1.1. Hypomagnesemia 1.5. Recommended to continue p.o. Bumex 1 twice daily, carvedilol 3.125 mg twice daily and replete electrolytes magnesium and potassium x 1. Continue spironolactone 25 mg once a day and Entresto 1 twice daily.Eliquis discontinued given possible artifact seen on CTA chest and primary team was notified to molina gutierrez. Primary team placed the patient on contact precautions given recently tested positive for C. difficile toxin however they are repeating the test. Continue IV antibiotic therapy for treating pneumonia. All labs and orders were reviewed. 10/20/2024: Patient was seen and examined at the bedside. Labs revealed mild leukocytosis, hemoglobin stable at 7.8. Chemistry panel also unremarkable. Mildly elevated blood glucose. Mild hypophosphatemia and hypomagnesemia. Venous Doppler was negative. Recommended to continue Bumex 1 mg p.o. twice daily, Entresto, carvedilol 3.125 p.o. twice daily, dapagliflozin 10 mg every morning and spironolactone 25 mg p.o. daily. Electrolytes were repleted. Patient is stable for discharge from cardiology standpoint. All labs and orders were reviewed. Exam Vital Signs Temp Pulse Resp BP Pulse Ox O2 Del Method O2 Flow Rate 97.3 F 78 17 119/71 99 Nasal Cannula 3 10/20/24 12:00 10/20/24 12:00 10/20/24 12:00 10/20/24 12:00 10/20/24 12:00 10/20/24 12:00 10/20/24 12:00 FiO2 55 10/18/24 16:00 Narrative Exam GENERAL: Patient appears older than stated age. He is seen on on 3 L nasal cannula. HEENT: NC/AT. Moist mucosa. PERRLA/EOMI. prominent JVD CARDIO: Heart RRR, no obvious murmurs, PULM: Wheezing noted bilaterally both upper and lower lung [place]; no crackles/Rales/rhonchi GI: Abdomen soft, NT/ND, +BS. MSK/EXT: Left lower extremity below-knee amputation. 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 upper right and lower extremity and left upper extremity, below-knee amputation left lower extremity Psych: Appropriate mood and affect Objective Labs 10/20/24 04:40 10/20/24 04:40 Labs: Laboratory Results - last 24 hr 10/19/24 10/19/24 10/20/24 14:18 16:00 04:40 WBC 12.6 H RBC 2.75 L Hgb 7.8 L Hct 24.1 L MCV 88 MCH 28.4 MCHC 32.4 RDW Std Deviation 50.1 H Plt Count 272 Neut % (Auto) 70 Lymph % (Auto) 17 [place] % (Auto) 9 Eos % (Auto) 2 Baso % (Auto) 1 Neut # (Auto) 8.7 H Lymph # (Auto) 2.2 [place] # (Auto) 1.1 H Eos # (Auto) 0.3 Baso # (Auto) 0.1 Immature Gran # (Auto) 0.22 H Absolute Nucleated RBC 0.00 Immature Gran % 2 H Nucleated RBC % 0 Sodium 134 L 136 Potassium 3.7 D 3.8 Chloride 99 101 Carbon Dioxide 28.6 30.2 Anion Gap 6 L 5 L BUN 26 H 32 H Creatinine 1.2 1.3 Estim Creat Clear Calc 69.2 63.8 eGFR > 60 > 60 BUN/Creatinine Ratio 22 H 25 H Glucose 246 H D 158 H D Calculated Osmolality 280 281 Calcium 7.4 L 7.2 L Corrected Calcium 8.3 L Phosphorus 2.3 L Magnesium 1.5 L 1.8 Total Bilirubin 0.2 L AST 10 ALT 11 Alkaline Phosphatase 88 Total Protein 4.8 L Albumin 2.6 L Globulin 2.2 L Albumin/Globulin Ratio 1.2 Stl C. diff Tox B Gene Positive A ABG Interpretation ABG results: 10/15/24 10/16/24 21:23 01:41 ABG pH 7.22 L 7.36 D ABG pCO2 63 H 45 D ABG pO2 65 L 69 L ABG HCO3 26 25 ABG O2 Saturation 90 L 95 ABG Base Excess -3 0 Quality Measures Quality Measures VTE prophylaxis Assessment & Plan Assessment Current Active Medications: Generic Name Dose Route Start Last Admin Trade Name Freq PRN Reason Stop Dose Admin Acetaminophen 650 mg 10/15/24 20:47 10/18/24 09:16 Acetaminophen 325 Mg Tablet PO 11/14/24 20:46 650 mg Q6HR PRN Administration Mild Pain 1-3 or Fever >100.3 Atorvastatin Calcium 40 mg 10/15/24 21:00 10/19/24 21:07 Atorvastatin Calcium 20 Mg Tablet PO 11/14/24 20:59 40 mg HS JAZMÍN Administration Bumetanide 1 mg 10/20/24 09:00 10/20/24 08:07 Bumetanide 0.5 Mg Tablet PO 11/19/24 08:59 1 mg BID JAZMÍN Administration Carvedilol 3.125 mg 10/19/24 09:00 10/20/24 08:08 Carvedilol 3.125 Mg Tablet PO 11/18/24 08:59 3.125 mg BIDWM JAZMÍN Administration Dapagliflozin 10 mg 10/20/24 09:00 10/20/24 08:08 Dapagliflozin Propanediol 5 Mg Tablet PO 11/19/24 08:59 10 mg QAM JAZMÍN Administration Dextrose 25 ml 10/15/24 20:31 Dextrose 50%-Water Inj 50 Ml Syringe IV 11/14/24 20:30 Q15MIN PRN BG 50-70 responsive npo pt Dextrose 50 ml 10/15/24 20:31 Dextrose 50%-Water Inj 50 Ml Syringe IV 11/14/24 20:30 Q15MIN PRN BG <50 OR BG <70 & pt unresponsive Glucagon 1 mg 10/15/24 20:31 Glucagon Inj 1 Mg Vial IM Q15MIN PRN BG <70, and no IV access Guaifenesin 100 mg 10/18/24 21:00 10/20/24 08:07 Guaifenesin Syrup 200 Mg/10 Ml Udc PO 11/17/24 20:59 100 mg BID JAZMÍN Administration Protocol Cefepime HCl 2 gm/ Sodium 50 mls @ 100 mls/hr 10/15/24 20:22 10/20/24 13:16 Chloride IV 10/22/24 20:21 100 mls/hr Q8HR JAZMÍN Administration Insulin Glargine 12 unit 10/17/24 21:00 10/19/24 21:17 Insulin Glargine (Lantus) 5 Unit/0.05 Ml (Per 5 Units) SC 11/16/24 20:59 12 unit HS JAZMÍN Administration Insulin Human Lispro 0 unit 10/17/24 11:30 10/20/24 11:13 Insulin Lispro (Admelog) 1 Unit/0.01 Ml Unit SC 11/16/24 11:29 2 unit AC JAZMÍN Administration Protocol Insulin Human Lispro 1 unit 10/17/24 11:30 10/20/24 11:14 Insulin Lispro (Admelog) 1 Unit/0.01 Ml Unit SC 11/16/24 11:29 1 unit AC JAZMÍN Administration Levalbuterol HCl 0.31 mg 10/16/24 13:33 10/16/24 23:12 Levalbuterol Rt 0.31 Mg/3 Ml Nebu INH 11/15/24 13:32 0.31 mg Q8HR PRN Administration WHEEZING Lorazepam 0.5 mg 10/15/24 18:33 10/18/24 09:17 Lorazepam 2 Mg/Ml Vial IVP 10/20/24 20:59 0.5 mg BID PRN Administration ANXIETY Melatonin 3 mg 10/16/24 02:15 10/19/24 21:07 Melatonin 3 Mg Tablet PO 11/15/24 02:14 3 mg HS JAZMÍN Administration Sacubitril/Valsartan 1 tab 10/18/24 21:00 10/20/24 08:25 Sacubitril 24 Mg/Valsartan 26 Mg Tablet PO 11/17/24 20:59 1 tab BID JAZMÍN Administration Sennosides 1 tab 10/16/24 15:32 Senna Tablet PO 11/15/24 15:31 QDAY PRN CONSTIPATION Protocol Spironolactone 25 mg 10/19/24 09:00 10/20/24 08:09 Spironolactone 25 Mg Tablet PO 11/18/24 08:59 25 mg QDAY JAZMÍN Administration Plan This 64-year-old male with a past medical history of hypertension, hyperlipidemia, diabetes mellitus type 2 insulin-dependent and a recent history of BKA who was admitted on 10/15/2024 for acute respiratory failure and sepsis secondary to community acquired pneumonia. # Acute hypoxic respiratory failure # Likely secondary to acute decompensated CHF versus right base pneumonia versus bilateral PE versus pleural effusions, multifactorial # Ischemic cardiomyopathy given underlying history of PAD # Dilated cardiomyopathy HFrEF EF 25% # Post thoracentesis for left and right sided pleural effusion # History of peripheral arterial occlusive disease # History of hypertension ? Patient presented with shortness of breath. BNP> 30-80. Chest x-ray was significant for prominent vascular congestion with perihilar edema. No previous history of heart failure. ? Patient showed urine output of 3.6 L with negative balance of 1.3. ?Echocardiogram showed Dilated cardiomyopathy severe global hypokinesis severe systolic dysfunction ejection fraction of 25%.Mitral valve thickening mild mitral regurgitation.Mild tricuspid regurgitation.Evidence of large left pleural effusion is present. ? Patient underwent left-sided thoracentesis removed 1900 cc today ? Discontinue amlodipine ? Patient underwent right-sided thoracentesis 1900 cc Plan: ?Patient is stable from cardiology standpoint to be discharged ? Primary team added Farxiga 10 mg every morning ? Recommended to continue Entresto 1 twice daily, started spironolactone 25 mg once a day and carvedilol 3.125 mg twice daily and continue same diuresis with Bumex 1 twice daily ? Eliquis discontinued given possible artifact seen on CTA chest and primary team was notified to molina hahnis. ? Continue fluid restriction, strict [place]'s and daily weight ? Continue breathing treatments ? Continue IV antibiotic therapy with cefepime ? Replete electrolytes as necessary ? Primary team repleted potassium and magnesium ? Daily labs ? Keep magnesium above 2 and potassium above 4 ? Oxygen as needed ? Contact precautions given positive C. difficile test follow-up and repeat testing # NSTEMI type II likely supply demand ischemia # History of hypertension ? Patient presented with worsening shortness of breath. EKG showed sinus tachycardia with occasional PVCs. QTc 459. Plan: ?Troponin I down trended to 0.830 ? Continue home medications # Possible C. difficile # Hypokalemia and hypomagnesemia # Pulmonary embolism, Resolved # Sepsis likely secondary to community-acquired pneumonia # History of diabetes type 2 # Status post below-knee amputation, left lower extremity # Normocytic anemia # Leukocytosis # Electrolyte disturbance # Hypokalemia Rest of the management as per primary care team. Thank you very much for consulting cardiology team. Recommended to continue p.o. diuretic therapy with Bumex 1 twice daily, entersto 24/26 mg, spironolactone 25 mg once a day and carvedilol 3.125 mg twice daily,strict [place]'s, fluid restriction and daily weight.Eliquis discontinued given possible artifact seen on CTA chest and primary team was notified to al brenda. Patient is stable to be discharged from cardiology standpoint. Plan of care discussed with under trimmer, Dr. Darien Dorsey MD, PGY 2
--- NOTE | 2024-10-20 14:18 | PC.NURSE ---
report called to [facility] nurse at [facility]
--- NOTE | 2024-10-20 14:24 | ESDS_ITS ---
<Statement entered by Florinda Han MD - 10/21/24 18:46> I discussed with and supervised the risk management intern physician who took care of this patient. I personally saw and examined the patient and discussed the assessment and plan with the entire medicine team, including my attending , I agree with most of the assessment and plan as documented below Florinda Han M.D. 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 Routine Comment: sam Rose 10/19/24 13:50 Consult to General Surgery Routine Comment: Follow-up for Left BKA Consulting Provider: Hong Vivar Attending Provider on DC: Celestino Pasrtana MD Discharging Provider: Celestino Pastrana MD DS: Diagnosis Problem List Completed Was Problem List Reviewed/Reconciled?: Yes Hospital Course Hospital Course Hospital course: 64-year-old male with past medical history of hypertension, hyperlipidemia, type 2 diabetes insulin-dependent, recent history of BKA (09/29) for osteomyelitis of the left extremity presented to the ED on 10/15 with chief complaint of increased shortness of breath, productive cough, chills and some subjective fevers. Patient presented from [facility] nursing facility with the following symptoms which have been progressing and worsening. In the ED, patient was tachycardic, tachypneic and mildly elevated WBC with a BNP that was severely elevated. EKG showed sinus tachycardia tachycardia with PVCs, chest x- ray showed moderate CHF with some vascular congestion and perihilar edema. CTA of the chest showed and confirmed moderate CHF and possible superimposed pneumonia. Patient was admitted for treatment of florid heart failure and cardiology was consulted for recommendations. During hospitalization, patient was given extensive IV Bumex diuretics and had a net -5 L along with nearly 5 kg weight loss. Patient was initially on high flow nasal cannula but as he improved and was tramsitioned to only minimal 1 to 3 L nasal cannula near discharge. Patient's echo showed dilated cardiomyopathy with severe global hypokinesis and severe systolic dysfunction with an EF of around 25%; as a result, patient was started on guideline based medical therapy for heart failure. Patient was also treated for possible underlying pneumonia for around 5 days with IV antibiotics and still had a persistent WBC likely secondary to C. difficile which had been treated on prior admission. Patient still tested positive for C. difficile toxin; however, is asymptomatic and not having diarrhea. Patient will be discharged back to [facility] with the strict instructions as outlined below. Please follow-up with your PCP within 1 week Please follow-up with your Service Engine Repairer within 1-2 weeks Please follow-up with your General Surgeon, Dr. Vivar, in 1-2 weeks Take your medications for heart failure (Entresto, Spironolactone, Coreg, Farxiga) Continue taking your diuretic, Bumex 1 mg twice a day If you still have diarrhea, can start Fidaxomicin outpatient. Please repeat your CBC labs in one week, and if leukocytosis is present, please follow with you heme/oncology. If you develop new or worsening shortness of breath, chest pain or dizziness, please come back to the ED right away Hospital Diagnosis: #Acute Hypoxic Respiratory Failure, resolved #Acute Decompensated Heart Failure with EF <25%, Improving #Dilated Cardiomyopathy #New Congestive Heart Failure #NSTEMI type II #Hyperlipidemia #Prior Infection of C.diff, asymptomatic #History of left BKA #Pulmonary Embolism, ruled out #Hypertension #Insulin-dependent type 2 diabetes Celestino Pastrana, PGY-1 Status at Discharge Overall status at discharge: patient is progressing back to baseline Time Spent with Patient Time attestation: Total time spent providing and/or coordinating discharge services: 45 minutes Time spent: Greater than 30 minutes Exam Vital Signs Temp Pulse Resp BP Pulse Ox O2 Del Method O2 Flow Rate 97.3 F 78 17 119/71 99 Nasal Cannula 3 10/20/24 12:00 10/20/24 12:00 10/20/24 12:00 10/20/24 12:00 10/20/24 12:00 10/20/24 12:00 10/20/24 12:00 FiO2 55 10/18/24 16:00 Narrative Exam Physical Exam: GENERAL: On 1-2L nasal cannula, in no respiratory distress, answering questions appropriately, appears older than stated age HEENT: NC/AT. Moist mucosa. PERRLA/EOMI. CARDIO: Heart RRR, no obvious murmurs, no JVD. PULM: Mild, sporadic wheezing noted bilaterally both upper and lower lung [place]; no crackles/Rales/rhonchi GI: Abdomen soft, NT/ND, +BS. 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 No wounds/discoloration/rashes/amputations. +Pedal pulses present B/L. 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, media consultant strength 5/5, Moves extremities x4. Discharge Plan Plan Patient Disposition: Xfer Skilled Nsg Fac (SNF) Disposition Comment: [facility] Patient condition on transfer: Stable Prescriptions/Referrals Prescriptions/Med Rec: New spironolactone 25 mg Tablet 25 mg PO QDAY 30 Days Qty: 30 0RF Entresto 24-26 mg Tablet 1 tab PO BID 30 Days Qty: 60 0RF dapagliflozin propanediol 10 mg tablet 10 mg PO QAM 30 Days Qty: 30 0RF carvedilol 3.125 mg Tablet 3.125 mg PO BIDWM 30 Days Qty: 60 0RF bumetanide 1 mg tablet 1 mg PO BID 30 Days Qty: 60 0RF metformin 500 mg tablet 500 mg PO BIDWMEAL Qty: 60 0RF Continued hydrocodone-acetaminophen 5-325 mg Tablet 1 tab PO Q12HR PRN (Reason: Moderate Pain (Scale Score 5-6)) alprazolam 0.25 mg Tablet 0.25 mg PO Q12HR PRN (Reason: Anxiety) Rx Instructions: for 14 days, 10/06-10/20 magnesium hydroxide [Milk of Magnesia] 400 mg/5 mL Suspension 30 ml PO Q72H PRN (Reason: Constipation) ascorbic acid (vitamin C) 500 mg Tablet 500 mg PO QDAY bisacodyl [Dulcolax (bisacodyl)] 10 mg Suppository 10 mg IA QDAY PRN (Reason: Constipation) Fleet Enema 19-7 gram/118 mL Enema 118 ml IA Q72H PRN (Reason: Constipation) zinc 10 mg Tablet 10 mg PO QDAY Rx Instructions: for 14 days, 10/11-10/25 gabapentin 100 mg Tablet 100 mg PO BID guaifenesin 50 mg/5 mL Liquid 200 mg PO Q4H PRN (Reason: Secretions) Probiotic 3 billion cell Capsule 3,000 mmu cells PO QDAY Rx Instructions: administer with a meal calcium carbonate 600 mg calcium (1,500 mg) tablet 600 mg PO TID atorvastatin 20 mg Tablet 40 mg PO HS Qty: 1 0RF Discontinued prednisone 20 mg Tablet 20 mg PO QDAY Rx Instructions: for 7 days, 10/15-10/22 insulin aspart U-100 100 unit/mL Solution See Rx Instructions .ROUTE .COMPLEX PRN (Reason: Hyperglycemia) Rx Instructions: bs 0-70= 0 units, notify and give oj, 71-149= 0, 150-200=2 units, 201- 250=4 units, 251-300=6 units, 301-350=8 units, 351-400= 10 units, 401-600= 12 units and notify glipizide 5 mg Tablet 5 mg PO QDAY amoxicillin-pot clavulanate 875-125 mg Tablet 1 tab PO BID Rx Instructions: 10/15-10/22 insulin glargine [Lantus Solostar U-100 Insulin] 100 unit/mL (3 mL) Insulin Pen 10 unit SUBCUT QAM Eliquis 2.5 mg Tablet 2.5 mg PO BID amlodipine 5 mg Tablet 10 mg PO QDAY Qty: 1 0RF metoprolol succinate 25 mg Tablet Extended Release 24 Hr 25 mg PO QDAY Qty: 13 0RF Referrals: Hong Vivar MD [Physician] - Rosendo Ledezma MD [Physician] - Rickie Meneses MD [Primary Care Provider] - Patient/Caregiver Discharge Instructions Other Discharge Activity Instructions:: Please follow-up with your PCP within 1 week Please follow-up with your Service Engine Repairer within 1-2 weeks Please follow-up with your General Surgeon, Dr. Vivar, in 1-2 weeks Take your medications for heart failure (Entresto, Spironolactone, Coreg, Farxiga) Continue taking your diuretic, Bumex 1 mg twice a day If you still have diarrhea, can start Fidaxomicin outpatient. Please repeat your CBC labs in one week, and if leukocytosis is present, please follow with you heme/oncology. If you develop new or worsening shortness of breath, chest pain or dizziness, please come back to the ED right away Education Materials: Thoracentesis Dc, Coping with Heart Failure Print Language: Scottish Activity Restrictions/Additional Instructions: Please follow-up with your PCP within 1 week Please follow-up with your Service Engine Repairer within 1-2 weeks Please follow-up with your General Surgeon, Dr. Vivar, in 1-2 weeks Take your medications for heart failure (Entresto, Spironolactone, Coreg, Farxiga) Continue taking your diuretic, Bumex 1 mg twice a day Take Fidaxomicin 200 mg twice a day for 10 days for C.diff If you develop new or worsening shortness of breath, chest pain or dizziness, please come back to the ED right away Stand Alone Forms: Janis Award Info., Patient Portal Info Letter Discharge Order Discharge Orders: Discharge (Routine); Ordered 10/20/24 Ordered By: Florinda Han Quality Discharge Quality Measures VTE prophylaxis MD Attestestation MD Attestation I have examined the patient, reviewed labs and imaging findings, discussed the case with the resident(s), and reviewed entered orders. I agree with the plan of care as outlined in this note. Dr. Parnell
== END 2024-10-20 17:40 | disposition skilled nursing facility (03) | DRG 871 ==
LOC: SERX 16:41 → SERHOLD 17:34 → S2NX 21:16
PROVIDERS: Student in an Organized Health Care Education/Training Program; Admitting Provider Internal Medicine; Emergency Provider Emergency Medicine; PCP Internal Medicine; Visit Provider Student in an Organized Health Care Education/Training Program
DX: A41.9 Sepsis, unspecified organism (principal); I21.A1 Myocardial infarction type 2; J18.9 Pneumonia, unspecified organism; I50.23 Acute on chronic systolic (congestive) heart failure; J96.01 Acute respiratory failure with hypoxia; N39.0 Urinary tract infection, site not specified; I42.0 Dilated cardiomyopathy; J91.8 Pleural effusion in other conditions classified elsewhere; A04.71 Enterocolitis due to Clostridium difficile, recurrent; I11.0 Hypertensive heart disease with heart failure; E78.00 Pure hypercholesterolemia, unspecified; E11.51 Type 2 diabetes mellitus with diabetic peripheral angiopathy without gangrene; E83.42 Hypomagnesemia; I25.5 Ischemic cardiomyopathy; E87.6 Hypokalemia; D64.9 Anemia, unspecified; Z89.512 Acquired absence of left leg below knee; Z91.148 Patient's other noncompliance with medication regimen for other reason; Z87.891 Personal history of nicotine dependence; Z79.4 Long term (current) use of insulin; Z79.84 Long term (current) use of oral hypoglycemic drugs; Z79.899 Other long term (current) drug therapy
CPT/HCPCS: 36415; 36600; 71045; 71275; 76999; 80048; 80053; 81001; 82150; 82803; 82945; 83605; 83615; 83735; 83880; 84100; 84145; 84157; 84443; 84484; 85025; 85610; 85730; 87040; 87070; 87075; 87081; 87205; 87400; 87493; 87811; 89051; 89220; 92610; 93005; 93306; 93970; 94640; 94660; 96361; 96365; 96374; 96375; 99285; A4649; C1729; J0692; J1643; J1644; J1815; J1940; J2060; J3475; J3480; J3490; J7030; J7040; J7050; J7512; J8499; Q9967; A9270

== ENCOUNTER 2024-12-01 17:11 | Inpatient (IN) | payer BC, SELFPAY ==
[2024-12-01 17:16] VITALS: BP 160/101; PULSE 107; RESP 19; TEMP 36.9; O2SAT 100
[2024-12-01 18:31] VITALS: PULSE 101; RESP 18; O2SAT 97; BMI 29.8
[2024-12-01 19:03] LABS: Basophils % (Auto) 0 % (0-2.5); Eosinophils # (Auto) 0.2 Thou/mm3 (0.0-0.5); Eosinophils % (Auto) 1 % (0-10); Hematocrit 22.5 % (41.0-53.0); Immature Granulocytes % (Auto) 1 % (0-0); Immature Granulocytes Auto 0.07 Thou/mm3 (0.00-0.00); Lymphocytes # (Auto) 1.2 Thou/mm3 (1.0-4.8); Lymphocytes % (Auto) 8 % (10-50); Mean Corpuscular HGB Conc 32.9 g/dl (31.0-37.0); Mean Corpuscular Hemoglobin 27.9 pg (25.0-35.0); Mean Corpuscular Volume 85 fL (80-100); Monocytes # (Auto) 1.2 Thou/mm3 (0.0-0.8); Monocytes % (Auto) 8 % (0-12); Neutrophils # (Auto) 11.6 Thou/mm3 (1.8-7.7); Neutrophils % (Auto) 81 % (37-80); Nucleated Red Blood Cell % 0 /100 WBC (0); Platelet Count 322 Thou/mm3 (140-440); RDW Standard Deviation 44.7 fL (35.1-43.9); Red Blood Count 2.65 Miln/mm3 (4.50-5.90); White Blood Count 14.2 Thou/mm3 (3.8-10.6)
[2024-12-01 19:07] LABS: Prothrombin Time 10.5 Seconds (9.0-12.2)
--- NOTE | 2024-12-01 19:08 | XR_ITS ---
Examination: Arterial duplex lower extremity unilateral right Date and time of exam: December 01, 2024 at 1952 hrs. Indications: Right toe pain beginning one month ago Findings: Duplex sonographic imaging of the lower extremity arteries using B-mode/Givens scale imaging and Doppler spectral analysis and color flow. Right common femoral artery demonstrates biphasic flow. Right superficial femoral artery demonstrates monophasic flow. Right popliteal artery demonstrates monophasic flow. Right posterior tibial artery demonstrated no flow. Impression: Significant right lower extremity peripheral obstructive arterial disease Recommend elective correlation with CTA abdominal aorta iliofemoral runoff post contrast follow-up
--- NOTE | 2024-12-01 19:08 | XR_ITS ---
Examination: Toes, right foot 2 views Technique: Toes right foot 2 views Exam date and time: December 01, 2024 1912 hrs. Indications: Redness swelling and pain involving the fifth digit today. Findings: No acute fracture No dislocation No cortical bone destruction Impression: No cortical bone destruction
--- NOTE | 2024-12-01 19:13 | EDNOTE_ITS ---
Lower Extremity Injury RME/HPI General Chief Complaint: Wound Recheck / Suture Removal Stated Complaint: FOOT WOUNDS Time Seen by Provider: 12/01/24 18:20 Source: patient Arrival date/time: 12/01/24 17:11 The patient is a 64-year-old male with a past medical history of severe peripheral arterial occlusive disease, hypertension, hypercholesterolemia, diabetes mellitus type 2, who had a [id number] amputation on 09/29/2024, Was recently admitted for CHF last discharge on 10/20/2024. patient presents via EMS today for concerns of right foot, ulcers and fifth digit right foot possible gangrene. Patient reports he is currently a resident at [facility]. patient is awake and alert has not reported any fever no nausea no vomiting. Related Data Home Medications ?Medication ?Instructions ?Recorded ?Confirmed alprazolam 0.25 mg tablet 0.25 mg PO Q12HR PRN Anxiety 10/15/24 10/15/24 ascorbic acid (vitamin C) 500 mg 500 mg PO QDAY 10/15/24 10/15/24 tablet bisacodyl 10 mg rectal suppository 10 mg WV QDAY PRN Constipation 10/15/24 10/15/24 (Dulcolax (bisacodyl)) calcium carbonate 600 mg PO TID 10/15/24 10/15/24 gabapentin 100 mg tablet 100 mg PO BID 10/15/24 10/15/24 guaifenesin 50 mg/5 mL oral liquid 200 mg PO Q4H PRN Secretions 10/15/24 10/15/24 hydrocodone 5 mg-acetaminophen 325 1 tab PO Q12HR PRN Moderate Pain 10/15/24 10/15/24 mg tablet (Scale Score 5-6) lactobacillus combination no.4 3 3,000 mmu cells PO QDAY 10/15/24 10/15/24 billion cell capsule (Probiotic) magnesium hydroxide 400 mg/5 mL 30 ml PO Q72H PRN Constipation 10/15/24 10/15/24 oral suspension (Milk of Magnesia) sodium phosphates 19 gram-7 118 ml WV Q72H PRN Constipation 10/15/24 10/15/24 gram/118 mL enema (Fleet Enema) zinc 10 mg tablet 10 mg PO QDAY 10/15/24 10/15/24 Previous Rx's ?Medication ?Instructions ?Recorded atorvastatin 20 mg tablet 40 mg (2 x 20 mg) PO HS #1 tab 10/03/24 metformin 500 mg tablet 500 mg PO BIDWMEAL #60 tabs 10/20/24 Allergies Allergy/AdvReac Type Severity Reaction Status Date / Time No Known Allergies Allergy Verified 09/22/24 03:47 Review of Systems Review of Systems Systems Reviewed: All systems reviewed, normal except as documented Narrative Review of Systems: Gen: No fever, no chills, no weight loss EYES: No discharge, no visual changes, no pain HEENT: No ear pain, no congestion, no sore throat PULM: No shortness of breath, no cough, no congestion CV: No chest pain, no dyspnea on exertion, no palpitations GI: No nausea, no vomiting, no diarrhea, no pain, no constipation : No frequency, no urgency, no dysuria Musc/skel: No joint pain, no back pain Skin: Ulcers to right foot, right fifth toe Psyc: No hallucinations, no depression Heme/Lymph: No easy bleeding or bruising tendencies Neuro: No weakness, no headache ED Exam Narrative Physical exam: GENERAL APPEARANCE: AxOx4, no acute distress, mild palor HEENT: NC, AT. MMM. EOMI, clear conjunctiva, oropharynx clear. NECK: Supple without lymphadenopathy. No stiffness or restricted ROM. HEART: Normal rate and regular rhythm, normal S1/S1, no m/r/g LUNGS: clear lung sounds bilateral, moving air well. No crackles ABDOMEN: Soft, nontender, nondistended with good bowel sounds heard. BACK: No midline C/T/L spine pain or deformity, No CVAT, no obvious deformity. EXTREMITIES: left below the knee amputation surgical scar clean dry and intact. Without cyanosis, clubbing or edema. multiple superficial dried ulcers noted to right foot. Right foot fifth digit black ecchymotic, erythemic streaking. MUSCULOSKELETAL: FROM of all major joints, no chest tenderness NEUROLOGICAL: Grossly nonfocal. Alert and oriented, moving all 4 extremities. CN not formally tested but appear grossly intact. Skin: Warm and dry without any rash. Course Quality Measures none Orders Category Date Time Status COVID-19 Screening Questionnaire NOW Care 12/01/24 21:15 Active Decision to Admit X1 Care 12/01/24 21:15 Active Insert IV NOW Care 12/01/24 21:05 Active Consult to General Surgery Stat Cons 12/01/24 21:31 Ordered US arterial duplex LE RT Stat Exams 12/01/24 19:08 Completed XR toe RT min 2V Stat Exams 12/01/24 19:08 Completed Blood Culture (Lab) Stat Lab 12/01/24 18:39 Received CBC Stat Lab 12/01/24 18:36 Completed CRP [C-Reactive Protein] Stat Lab 12/01/24 18:36 Completed Comprehensive Metabolic Panel Stat Lab 12/01/24 18:36 Completed Lactate (Lactic Acid) Stat Lab 12/01/24 18:36 Completed Procalcitonin Stat Lab 12/01/24 18:36 Completed Prothrombin Time with INR Stat Lab 12/01/24 18:36 Completed Sed Rate (ESR) Stat Lab 12/01/24 18:36 Completed Sodium Chloride 0.9% 1000 ml [Ns] 1,000 ml Med 12/01/24 21:05 Active IV 999 mls/hr cefTRIAXone/D5w 1gm IV premix [Rocephin/D5w 1gm IV Med 12/01/24 21:16 Pending premix] 50 ml IV QDAY cefTRIAXone/D5w 1gm IV premix [Rocephin/D5w 1gm IV Med 12/01/24 21:30 Active premix] 50 ml IV X1 Vital Signs Vital signs: Vital Signs Temperature 98.5 F 12/01/24 17:16 Pulse Rate 107 H 12/01/24 17:16 Respiratory Rate 19 12/01/24 17:16 Blood Pressure 160/101 H 12/01/24 17:16 Pulse Oximetry (%) 100 12/01/24 17:16 Oxygen Delivery Method Room Air 12/01/24 17:16 Extremity Injury, Lower MDM Narrative MDM Narrative:: this is a 64-year-old male who was transferred over by EMS from [facility] for evaluation of gangrenous fifth right toe. patient is awake and alert. patient denies fever, nausea vomiting.. Vital signs stable upon arrival. Full workup to rule out osteomyelitis was initiated. At 2100 I did go ahead and reviewed patient's labs CBC came back at 14.1 with a left shift of 88 segs , H&H is 7.4and 22. lactic was neg , CRP 3.6 is Pro-Corey neg, blood cultures pending. I did go ahead and looked at his trend previously appears to be chronically anemic. His BUN and creatinine are 56 and 1.7; Both elevated. however his potassium is normal. I will go ahead ordered IV fluids. I went ahead and ordered an x-ray of his right foot negative on x-ray osteomyelitis., and a arterial Doppler Demonstrates no acute occlusion however severe obstructive arterial disease. I do feel the patient warrants admission due to gangrene to fifth digit right toe and evaluation by surgeon. [id number] did go ahead and placed a call to Dr. Vivar, who will gladly consult on case. [id number]- Spoke to the patient's PCP Dr. Evans who will admit the patient. DISPOSITION: Emergency Department nursing documentation was reviewed including triage complaint, associated symptoms, administration of medications, response to therapy and vital signs. Given the history, physical exam, and review of laboratory and imaging studies the patient is determined to be unsafe for discharge and is being moved into the hospital for further diagnostic tests, treatments, stabilization, and monitored response to therapy. I communicated the history, physical exam, pertinent laboratory and imaging studies to the inpatient physician. The inpatient physician has access to electronic copies of all emergency department laboratory testing and imaging studies as well as medications ordered and administered Patient data External records reviewed:: [facility] previous records and Long Term records Clinical information provided by:: patient and EMS Social determinants that could affect healthcare access:: none Patient has the following chronic illnesses:: see HPI How is presenting disease/condition affected by chronic disease/condition?: exacerbated by Evaluation data The following diagnostics were reviewed and interpreted by me:: lab results, radiology exam(s) and EKG tracing(s) Lab and/or radiology exams considered but not ordered:: MRI Interpretation Summary: Examination: Toes, right foot 2 views Technique: Toes right foot 2 views Exam date and time: December 01, 2024 1912 hrs. Indications: Redness swelling and pain involving the fifth digit today. Findings: No acute fracture No dislocation No cortical bone destruction Impression: No cortical bone destruction Examination: Arterial duplex lower extremity unilateral right Date and time of exam: December 01, 2024 at 1952 hrs. Indications: Right toe pain beginning one month ago Findings: Duplex sonographic imaging of the lower extremity arteries using B-mode/Givens scale imaging and Doppler spectral analysis and color flow. Right common femoral artery demonstrates biphasic flow. Right superficial femoral artery demonstrates monophasic flow. Right popliteal artery demonstrates monophasic flow. Right posterior tibial artery demonstrated no flow. Impression: Significant right lower extremity peripheral obstructive arterial disease Recommend elective correlation with CTA abdominal aorta iliofemoral runoff post contrast follow-up Medications / Prescriptions Medications or Prescriptions considered but not ordered:: no Medication administrations:: Medication Administration History Sodium Chloride (Ns) 1,000 mls @ 999 mls/hr IV .Q1H1M ONE Stop: 12/01/24 22:05 Last Admin: 12/01/24 21:31 Dose: 999 mls/hr Documented By: KG Ceftriaxone Sodium/Dextrose (Rocephin/D5w 1gm Iv Premix) 50 mls @ 100 mls/hr IV QDAY JAZMÍN Stop: 12/08/24 21:15 Ceftriaxone Sodium/Dextrose (Rocephin/D5w 1gm Iv Premix) 50 mls @ 100 mls/hr IV X1 ONE Stop: 12/01/24 21:59 Last Admin: 12/01/24 21:33 Dose: 100 mls/hr Documented By: KG all medications administered and effective Consultations Consultation(s) initiated? (list below): Yes Diagnosis Extremity Injury, Lower Differential Diagnosis: ankle sprain and strain, acute internal derangement of knee, fracture of femur, fracture of hip, puncture wound of foot and fracture of toe Most likely diagnosis given after review of the tests above:: osteomyelitis right foot, Gangrene fifth digit Admission Indicated Admission indicated?: indicated Admission Request Was there a request for admission?: Yes Admission Attestation Admission request attestation: Discussed case with [] from Hospitalist service regarding admission. Discussed patients ED course, exam findings, labs, and radiology results. The Hospitalist [agrees,declines] to accept the patient for admission. Disposition Plan Disposition Plan: Admit Discharge Plan Plan Patient Disposition: Admit Acute Care w/in Hospital Prescriptions/Referrals Prescriptions/Med Rec: No Action hydrocodone-acetaminophen 5-325 mg Tablet 1 tab PO Q12HR PRN (Reason: Moderate Pain (Scale Score 5-6)) alprazolam 0.25 mg Tablet 0.25 mg PO Q12HR PRN (Reason: Anxiety) Rx Instructions: for 14 days, 10/06-10/20 magnesium hydroxide [Milk of Magnesia] 400 mg/5 mL Suspension 30 ml PO Q72H PRN (Reason: Constipation) ascorbic acid (vitamin C) 500 mg Tablet 500 mg PO QDAY bisacodyl [Dulcolax (bisacodyl)] 10 mg Suppository 10 mg WV QDAY PRN (Reason: Constipation) Fleet Enema 19-7 gram/118 mL Enema 118 ml WV Q72H PRN (Reason: Constipation) zinc 10 mg Tablet 10 mg PO QDAY Rx Instructions: for 14 days, 10/11-10/25 gabapentin 100 mg Tablet 100 mg PO BID guaifenesin 50 mg/5 mL Liquid 200 mg PO Q4H PRN (Reason: Secretions) Probiotic 3 billion cell Capsule 3,000 mmu cells PO QDAY Rx Instructions: administer with a meal calcium carbonate 600 mg calcium (1,500 mg) tablet 600 mg PO TID metformin 500 mg tablet 500 mg PO BIDWMEAL Qty: 60 0RF atorvastatin 20 mg Tablet 40 mg PO HS Qty: 1 0RF Referrals: Rickie Meneses MD [Primary Care Provider] - In 1 week Problem List Clinical Impression: 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
[2024-12-01 19:26] LABS: Hemoglobin 7.4 g/dL (13.5-16.0)
[2024-12-01 19:33] LABS: Sed Rate (ESR) 42 mm/hr (0-20)
[2024-12-01 19:36] VITALS: BP 142/88; PULSE 97; RESP 18; O2SAT 100
[2024-12-01 19:40] LABS: Alanine Aminotransferase 12 U/L (10-49); Albumin/Globulin Ratio 1.3 (1.2-2.2); Alkaline Phosphatase 77 U/L (46-116); Anion Gap 8 (7-16); Aspartate Amino Transferase < 8 U/L (0-34); BUN/Creatinine Ratio 33 Ratio (12-20); Bilirubin,Total < 0.2 mg/dL (0.3-1.2); Blood Urea Nitrogen 56 mg/dL (9-23); C-Reactive Protein 3.6 mg/dL (0.0-0.9); Calcium 9.2 mg/dL (8.3-10.6); Calcium (Corrected) 9.2 mg/dL (8.5-10.1); Carbon Dioxide 29.6 mMol/L (20.0-31.0); Chloride 98 mMol/L (98-107); Creatinine (Component) 1.7 mg/dL (0.6-1.3); Estimated Creatinine Clearance 45.2 mL/min (>60); Glucose 218 mg/dL (74-106); Osmolality,Calculated 294 (275-295); Potassium 3.9 mMol/L (3.4-5.1); Procalcitonin 0.38 ng/ml (0.0-0.49); Sodium 136 mMol/L (136-145); eGFR 45 See Note
--- NOTE | 2024-12-01 19:56 | PC.NURSE ---
batch room technician at the bedside at this time for exam.
[2024-12-01 20:32] VITALS: BP 136/71; PULSE 99; RESP 17; O2SAT 99
[2024-12-01] MEDS: SODIUM CHLORIDE 0.9% 1000 ML 1,000 ML 999 ML IV (21:31)
[2024-12-01] MEDS: cefTRIAXone/D5w 1gm IV premix 50 ML IV (21:33)
--- NOTE | 2024-12-01 21:45 | PD.NEPHHP ---
Documentation for date of: 12/01/24 History of Present Illness History of Present Illness Chief complaint: Right toe gangrene History of present illness: Mr. Gibson is a 64-year-old male with a past medical history of severe peripheral arterial occlusive disease, hypertension, hypercholesterolemia, diabetes mellitus type 2, recent congestive heart failure with ejection fraction 25% , who had a [id number] amputation on 09/29/2024, discharged to [facility] 10/06/2024 for rehabilitation was noted to have right fifth toe gangrene, right heel decubiti (seen by cardiovascular disease specialist at the rehab and he recommended for him to go to the emergency department) presented to the emergency department for the evaluation of the right fifth toe gangrene Patient admitted for further evaluation. Surgical consultation requested. In the emergency department WBC 14.2, hemoglobin 7.4, platelets 323. Coagulation profile normal, sodium 136, potassium 3.9, BUN 56, creatinine 1.7, A1c 7.5, LFTs normal, albumin 4.0, Pro-Corey negative x-ray showed no cortical thinning destruction. Doppler ultrasound showed severe clinically vascular disease in the right lower extremity. Patient admitted to med telemetry floor. Antibiotics were initiated. Gentle IV fluids initiated for XIOMARA. Review of Systems Review of Systems Narrative Review of Systems: CONSTITUTIONAL: Patient denies any fever, chills. Complaining of fatigue HEENT: Denies any visual disturbances or hearing problems. CARDIOVASCULAR: Patient denies any chest pain, shortness of breath, swelling in the lower extremities. PULMONARY: Patient denies any shortness of breath, cough. GASTROINTESTINAL: Patient denies any abdominal pain, constipation, nausea, vomiting, diarrhea. GENITOURINARY: Patient denies any urinary symptoms of burning or frequency or hematuria, denies any form in the urine. SKIN see HPI MUSCULOSKELETAL: Left BKA NEUROLOGICAL: Denies any neurological problems of strokes, seizures or confusion. Denies any memory problems. PSYCHIATRIC: Admits depression Past Medical History Past Medical History NEUROLOGIC: Negative Seizures CARDIAC: Positive Hypercholesterolemia, Cellulitis, Hypertension and Hypotension; Negative Cardiac Disorders, Peripheral Vascular Disease, Congestive Heart Failure, Valvular Heart Disease, Rheumatic Fever, Edema, Pericarditis or Varicose Veins RESPIRATORY: Positive Asthma; Negative Chronic Obstructive Pulmonary Disease (COPD) GASTROINTESTINAL: Negative Gastrointestinal Disorders GENITOURINARY: Negative Renal Disease or Benign Prostatic Hyperplasia MUSCULOSKELETAL: Negative Fractures ENDOCRINE: Positive Diabetes Mellitus Type 2; Negative Endocrine Disorders, Diabetes Mellitus Type 1, Lilly's Syndrome, [place]'s Disease or Adrenal Disease HEMATOLOGIC: Negative Sickle Cell Disease PSYCHO/SOCIAL: Negative Depression or Anxiety OTHER HISTORY: Positive Falls; Negative Blood Transfusions, Anesthesia Reactions or Cancer Surgical History SURGICAL: Negative Pacemaker Social History SMOKING STATUS: Never smoker SECOND HAND EXPOSURE: No SUBSTANCE USE: does not use Meds Home Medications and Allergies Home Medications ?Medication ?Instructions ?Recorded ?Confirmed ?Type alprazolam 0.25 mg tablet 0.25 mg PO Q12HR PRN Anxiety 10/15/24 10/15/24 History ascorbic acid (vitamin C) 500 mg 500 mg PO QDAY 10/15/24 10/15/24 History tablet bisacodyl 10 mg rectal suppository 10 mg CO QDAY PRN Constipation 10/15/24 10/15/24 History (Dulcolax (bisacodyl)) calcium carbonate 600 mg PO TID 10/15/24 10/15/24 History gabapentin 100 mg tablet 100 mg PO BID 10/15/24 10/15/24 History guaifenesin 50 mg/5 mL oral liquid 200 mg PO Q4H PRN Secretions 10/15/24 10/15/24 History hydrocodone 5 mg-acetaminophen 325 1 tab PO Q12HR PRN Moderate Pain 10/15/24 10/15/24 History mg tablet (Scale Score 5-6) lactobacillus combination no.4 3 3,000 mmu cells PO QDAY 10/15/24 10/15/24 History billion cell capsule (Probiotic) magnesium hydroxide 400 mg/5 mL 30 ml PO Q72H PRN Constipation 10/15/24 10/15/24 History oral suspension (Milk of Magnesia) sodium phosphates 19 gram-7 118 ml CO Q72H PRN Constipation 10/15/24 10/15/24 History gram/118 mL enema (Fleet Enema) zinc 10 mg tablet 10 mg PO QDAY 10/15/24 10/15/24 History Allergies Allergy/AdvReac Type Severity Reaction Status Date / Time No Known Allergies Allergy Verified 09/22/24 03:47 Exam Vital Signs Temp Pulse Resp BP Pulse Ox O2 Del Method 36.9 C 99 17 136/71 H 99 Room Air 12/01/24 17:16 12/01/24 20:32 12/01/24 20:32 12/01/24 20:32 12/01/24 20:32 12/01/24 20:32 Narrative Exam GENERAL APPEARANCE: Patient seems to be comfortable, adequately hydrated and nourished. HEENT: EOMI, PERRLA NECK: Neck supple, no JVD or bruit CARDIOVASCULAR: Heart regular, no murmurs LUNGS/CHEST: Chest clear to auscultation. No rales, rhonchi, wheezing ABDOMEN: Soft, nontender, nondistended. No masses. Normal bowel sounds. EXTREMITIES: No edema, clubbing or cyanosis. SKIN: Right fifth toe gangrene. Right heel decubitus. Decubitus noted on the top of the toes MUSCULOSKELETAL: In bed NEUROLOGICAL : No neurological deficits. seems sad Results: Labs 12/03/24 05:03 12/03/24 05:03 Labs: Short CBC 12/01/24 Range/Units 18:36 WBC 14.2 H (3.8-10.6) Thou/mm3 Hgb 7.4 L (13.5-16.0) g/dL Hct 22.5 L (41.0-53.0) % Plt Count 322 (140-440) Thou/mm3 BMP 12/01/24 18:36 Sodium 136 Potassium 3.9 Chloride 98 Carbon Dioxide 29.6 BUN 56 H Creatinine 1.7 H Glucose 218 H Calcium 9.2 Liver Function 12/01/24 Range/Units 18:36 Total Bilirubin < 0.2 L (0.3-1.2) mg/dL AST < 8 (0-34) U/L ALT 12 (10-49) U/L Alkaline Phosphatase 77 (46-116) U/L Albumin 4.0 (3.4-4.8) gm/dL Assessment & Plan Assessment and plan (1) Gangrene of toe of right foot: Status: Acute Assessment and plan: Patient noted to have gangrene of the right toe. Surgical consultation requested. If needed will order MRI of rule out osteomyelitis (2) Acute kidney injury: Status: Acute Assessment and plan: Added IV fluids. Suspect underlying CKD from diabetic nephropathy. 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 (4) Diabetes: Status: Acute Assessment and plan: Accu-Cheks, sliding scale, consistent carb low (5) Anemia: Status: Acute Assessment and plan: No active bleed currently. Requested GI consultation. Continue current blood transfusion on hold. Will resume home medications. (6) Hypertension: Status: Acute Assessment and plan: Blood pressure on the lower side. (7) CHF (congestive heart failure): Status: Acute Assessment and plan: Compensated. Additional Assessment & Plan Additional Plan: Estimated length of stay 3 days CODE STATUS full code DVT prophylaxis- scd. Cannot do heparin due to severe anemia GI prophylaxis-Protonix Disposition [facility] Quality Measures Quality Measures none
[2024-12-01 22:00] VITALS: BP 122/70; PULSE 99; RESP 18; O2SAT 98
[2024-12-01 22:02] LABS: Glucose Estimated Average 169 mg/dL (80-131); Hemoglobin A1C 7.5 % Hgb (4.8-6.0)
[2024-12-01] MEDS: PIPER/TAZO INJ 3.375 GM in SODIUM CHLORIDE 0.9% 100 ML IV (22:40)
[2024-12-01] MEDS: SODIUM CHLORIDE 0.9% 1000 ML 1,000 ML 70 ML IV (22:40)
[2024-12-01 23:33] VITALS: BP 128/67; PULSE 93; RESP 18; TEMP 37; O2SAT 95
[2024-12-02] VITALS (17 sets, daily range): BP systolic 112–157; BP diastolic 60–81; PULSE 74–99; RESP 14–18; TEMP 36.2–37; O2SAT 96–99; BMI 25.7; BMI 25.6
[2024-12-02] MEDS: HYDROcodone/APAP 5/325 TABLET 1 TAB PO ×2 (03:23→20:11)
[2024-12-02 05:46] LABS: Basophils # (Auto) 0.1 Thou/mm3 (0.0-0.2); Basophils % (Auto) 0 % (0-2.5); Eosinophils # (Auto) 0.2 Thou/mm3 (0.0-0.5); Eosinophils % (Auto) 1 % (0-10); Immature Granulocytes % (Auto) 1 % (0-0); Immature Granulocytes Auto 0.06 Thou/mm3 (0.00-0.00); Lymphocytes # (Auto) 1.3 Thou/mm3 (1.0-4.8); Lymphocytes % (Auto) 12 % (10-50); Mean Corpuscular HGB Conc 31.6 g/dl (31.0-37.0); Mean Corpuscular Hemoglobin 27.4 pg (25.0-35.0); Mean Corpuscular Volume 87 fL (80-100); Monocytes # (Auto) 1.1 Thou/mm3 (0.0-0.8); Monocytes % (Auto) 10 % (0-12); Neutrophils # (Auto) 8.8 Thou/mm3 (1.8-7.7); Neutrophils % (Auto) 76 % (37-80); Nucleated Red Blood Cell % 0 /100 WBC (0); Platelet Count 282 Thou/mm3 (140-440); RDW Standard Deviation 45.2 fL (35.1-43.9); Red Blood Count 2.19 Miln/mm3 (4.50-5.90); White Blood Count 11.6 Thou/mm3 (3.8-10.6)
--- NOTE | 2024-12-02 06:12 | PC.NURSE ---
Pt's HGB 6.0, HCT, 19.0, Dr. Meneses was made aware. New orders for pt, see MAR/TAR.
[2024-12-02] MEDS: PIPER/TAZO INJ 3.375 GM in SODIUM CHLORIDE 0.9% 100 ML IV ×3 (06:17→22:02)
[2024-12-02] MEDS: CALCIUM CARBONATE 600 MG TABLET PO ×3 (06:19→22:00)
[2024-12-02 06:40] LABS: Alanine Aminotransferase 7 U/L (10-49); Albumin, Serum 3.6 gm/dL (3.4-4.8); Albumin/Globulin Ratio 1.3 (1.2-2.2); Alkaline Phosphatase 67 U/L (46-116); Anion Gap 8 (7-16); Aspartate Amino Transferase < 8 U/L (0-34); BUN/Creatinine Ratio 31 Ratio (12-20); Bilirubin,Total < 0.2 mg/dL (0.3-1.2); Blood Urea Nitrogen 53 mg/dL (9-23); Calcium 8.4 mg/dL (8.3-10.6); Calcium (Corrected) 8.7 mg/dL (8.5-10.1); Carbon Dioxide 24.8 mMol/L (20.0-31.0); Cardiac Risk Estimate 2.6 RATIO (4.0-6.7); Chloride 100 mMol/L (98-107); Cholesterol 81 mg/dL (132-200); Creatinine (Component) 1.7 mg/dL (0.6-1.3); Estimated Creatinine Clearance 40.1 mL/min (>60); Globulin 2.7 gm/dL (2.3-3.5); Glucose 385 mg/dL (74-106); HDL Cholesterol 31 mg/dL (40-60); LDL Cholesterol,Calculated 35 mg/dL (0-130); Osmolality,Calculated 296 (275-295); Potassium 4.3 mMol/L (3.4-5.1); Sodium 133 mMol/L (136-145); Total Protein 6.3 gm/dL (5.7-8.2); Triglycerides 74 mg/dL (30-150); eGFR 45 See Note
[2024-12-02] MEDS: INSULIN HUM REGULAR 1 UNIT/0.01 ML (PER UNIT) SC ×3 (07:50→20:06)
[2024-12-02] MEDS: ASCORBIC ACID 250 MG TABLET 500 MG PO (09:01)
[2024-12-02] MEDS: GABAPENTIN 100 MG CAPSULE PO ×2 (09:02→20:06)
[2024-12-02] MEDS: INSULIN GLARGINE (Lantus) 5 UNIT/0.05 ML (PER 5 UNITS) 10 UNIT SC (09:02)
[2024-12-02] MEDS: PANTOPRAZOLE 40 MG TABLET PO (09:02)
[2024-12-02] MEDS: EPOETIN ALFA-EPBX INJ 10,000 UNIT/ML VIAL (ESRD) 10000 UNIT SC (10:10)
[2024-12-02] MEDS: ferumoxytoL (ESRD) 510 MG in SODIUM CHLORIDE 0.9% 100 ML 234 MG IV (10:10)
--- NOTE | 2024-12-02 10:30 | ESPR_ITS ---
Documentation for date of: 12/02/24 Subjective Subjective Interval history: Mr. Gibson is a 64-year-old male with a past medical history of severe peripheral arterial occlusive disease, hypertension, hypercholesterolemia, diabetes mellitus type 2, recent congestive heart failure with ejection fraction 25% , who had a [id number] amputation on 09/29/2024, discharged to [facility] 10/06/2024 for rehabilitation was noted to have right fifth toe gangrene, right heel decubiti (seen by fire support specialist at the rehab and he recommended for him to go to the emergency department) presented to the emergency department for the evaluation of the right fifth toe gangrene Patient admitted for further evaluation. Surgical consultation requested. In the emergency department WBC 14.2, hemoglobin 7.4, platelets 323. Coagulation profile normal, sodium 136, potassium 3.9, BUN 56, creatinine 1.7, A1c 7.5, LFTs normal, albumin 4.0, Pro-Corey negative x-ray showed no cortical thinning destruction. Doppler ultrasound showed severe clinically vascular disease in the right lower extremity. Patient admitted to med telemetry floor. Antibiotics were initiated. Gentle IV fluids initiated for XIOMARA. 12/02/2023 patient currently seen in medical floor. Dr Vivar saw patient and recommended right foot amputation. Patient absolutely declines and is requesting for a second opinion. Dr Lobato was consulted. WBC 11.6, hemoglobin 6.0 sodium 133, potassium 4.7, BUN 53, creatinine 1.7, A1c 7.5 lipids normal. B12 fine. Folic acid low. 2 units of blood transfusion ordered. Anemia of unclear etiology. Requested GI consultation. Review of Systems Review of Systems Narrative Review of Systems: CONSTITUTIONAL: Patient denies any fever, chills. Complaining of fatigue HEENT: Denies any visual disturbances or hearing problems. CARDIOVASCULAR: Patient denies any chest pain, shortness of breath, swelling in the lower extremities. PULMONARY: Patient denies any shortness of breath, cough. GASTROINTESTINAL: Patient denies any abdominal pain, constipation, nausea, vomiting, diarrhea. GENITOURINARY: Patient denies any urinary symptoms of burning or frequency or hematuria, denies any form in the urine. SKIN see HPI MUSCULOSKELETAL: Left BKA NEUROLOGICAL: Denies any neurological problems of strokes, seizures or confusion. Denies any memory problems. PSYCHIATRIC: Admits depression Exam Vital Signs Temp Pulse Resp BP Pulse Ox O2 Del Method 36.4 C 85 18 126/71 97 Room Air 12/02/24 10:17 12/02/24 10:17 12/02/24 10:17 12/02/24 10:17 12/02/24 10:17 12/02/24 07:43 Narrative Exam GENERAL APPEARANCE: Patient seems to be comfortable, adequately hydrated and nourished. HEENT: EOMI, PERRLA NECK: Neck supple, no JVD or bruit CARDIOVASCULAR: Heart regular, no murmurs LUNGS/CHEST: Chest clear to auscultation. No rales, rhonchi, wheezing ABDOMEN: Soft, nontender, nondistended. No masses. Normal bowel sounds. EXTREMITIES: No edema, clubbing or cyanosis. SKIN: Right fifth toe gangrene. Right heel decubitus. Decubitus noted on the top of the rt toes MUSCULOSKELETAL: In bed, Left BKA NEUROLOGICAL : No neurological deficits. seems sad Objective Labs 12/03/24 05:03 12/03/24 05:03 Labs: Laboratory Results - last 24 hr 12/01/24 12/02/24 12/02/24 18:36 05:03 06:50 WBC 14.2 H 11.6 H RBC 2.65 L 2.19 L Hgb 7.4 L 6.0 L* Hct 22.5 L 19.0 L* MCV 85 87 MCH 27.9 27.4 MCHC 32.9 31.6 RDW Std Deviation 44.7 H 45.2 H Plt Count 322 282 D Neut % (Auto) 81 H 76 Lymph % (Auto) 8 L 12 [place] % (Auto) 8 10 Eos % (Auto) 1 1 Baso % (Auto) 0 0 Neut # (Auto) 11.6 H 8.8 H Lymph # (Auto) 1.2 1.3 [place] # (Auto) 1.2 H 1.1 H Eos # (Auto) 0.2 0.2 Baso # (Auto) 0.0 0.1 Immature Gran # (Auto) 0.07 H 0.06 H Absolute Nucleated RBC 0.00 0.00 Immature Gran % 1 H 1 H Nucleated RBC % 0 0 ESR 42 H PT 10.5 INR 1.0 Sodium 136 133 L Potassium 3.9 4.3 Chloride 98 100 Carbon Dioxide 29.6 24.8 Anion Gap 8 8 BUN 56 H 53 H Creatinine 1.7 H 1.7 H Estim Creat Clear Calc 45.2 L 40.1 L eGFR 45 L 45 L BUN/Creatinine Ratio 33 H 31 H Glucose [address] Glu mg/dL 169 H Hemoglobin A1c 7.5 H Calculated Osmolality 294 296 H Lactic Acid 1.0 Calcium 9.2 8.4 Corrected Calcium 9.2 8.7 Total Bilirubin < 0.2 L < 0.2 L AST < 8 < 8 ALT 12 7 L Alkaline Phosphatase 77 67 C-Reactive Prot, Quant 3.6 H Total Protein 7.0 6.3 Albumin 4.0 3.6 Globulin 3.0 2.7 Albumin/Globulin Ratio 1.3 1.3 Triglycerides 74 Cholesterol 81 L LDL Cholesterol, Calc 35 HDL Cholesterol 31 L Cholesterol/HDL Ratio 2.6 L Procalcitonin 0.38 Blood Type A Positive Antibody Screen NEGATIVE Crossmatch See Detail Blood Bank Wristband ID Yes Assessment & Plan Assessment and plan (1) Gangrene of toe of right foot: Status: Acute Assessment and plan: Patient noted to have gangrene of the right toe. Surgical consultation requested. Dr Vivar recommended right foot amputation. Patient waiting urine. Requested second opinion. Dr Lobato was consulted. (2) Acute kidney injury: Status: Acute Assessment and plan: Added IV fluids. Suspect underlying CKD from diabetic nephropathy. 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 Unfortunately, NO vascular surgery pickling solution maker. (4) Diabetes: Status: Acute Assessment and plan: Accu-Cheks, sliding scale, consistent carb low (5) Anemia: Status: Acute Assessment and plan: No active bleed currently. Requested GI consultation. Units blood transfusion ordered. Noted patient declined GI workup. IV iron will be given. Iron stores low add folate (6) Hypertension: Status: Acute Assessment and plan: Blood pressure on the lower side. (7) CHF (congestive heart failure): Status: Acute Assessment and plan: Compensated. Additional Assessment & Plan Additional Plan: Estimated length of stay 3 days CODE STATUS full code DVT prophylaxis- scd. Cannot do heparin due to severe anemia GI prophylaxis-Protonix Disposition [facility] Quality - progress note Quality Measures Quality Measures: VTE prophylaxis Reason for Continued Stay Reason for Continued Stay: further monitoring
--- NOTE | 2024-12-02 10:58 | PC.SS ---
Follow up note: MRI pending. Getting blood transfusion. Pt is on IV antibiotic. Consulting surgery and GI. Pt is aware to return to [facility] he has to pay his bill. SS communicated with Sylvia at [facility] if pt does not pay or his health insurance does not pay they are unable to accept him back. Pt is aware. SS has provided pt with [employer]'s phone# and informed him to contact [place] for payment. Pt states he will call [facility] for to make payment.
--- NOTE | 2024-12-02 11:50 | PC.SS ---
SS met with patient regarding his d/c plan. Pt is alert/oriented. Pt was admitted for RT Toe Gangrene, PVD, XIOMARA, Anemia. Pt confirmed demographic and contact information is correct on facesheet. Pt is from [place]. Pt states he transfers into wheelchair with assistance. Pt requires assistance with all ADLs. Pt named his brother Osiel Gibson medical decision maker if he is unable. Patient?s choice is to return to [place]. D/C plan: Return home Next of Kin: Osiel Gibson, brother, phone# [phone] PCP: Dr. Meneses Address: Correct on facesheet
[2024-12-02] MEDS: FUROSEMIDE INJ 10 MG/ML VIAL 2 ML 20 MG IVP (12:06)
--- NOTE | 2024-12-02 13:18 | PD.SURCONS ---
HPI Consult details Consult date: 12/02/24 Reason for consultation narrative: Right foot gangrene History of present illness: 64-year-old male with history of tobacco use disorder, stopped smoking about 10 months ago, diabetes, hypertension, hypercholesterolemia, PAD and CHF with EF of 25% had undergone left below the knee amputation 09/29/2024 for atherosclerosis of left lower extremity with gangrene right foot. He has been resident of longterm since his previous operation. He has developed gangrene of right fifth toe as well as large area of necrotic skin of his right heel. X-ray did not show evidence of osteomyelitis. Meds Home Medications and Allergies Home Medications ?Medication ?Instructions ?Recorded ?Confirmed ?Type alprazolam 0.25 mg tablet 0.25 mg PO Q12HR PRN Anxiety 10/15/24 10/15/24 History ascorbic acid (vitamin C) 500 mg 500 mg PO QDAY 10/15/24 10/15/24 History tablet bisacodyl 10 mg rectal suppository 10 mg MO QDAY PRN Constipation 10/15/24 10/15/24 History (Dulcolax (bisacodyl)) calcium carbonate 600 mg PO TID 10/15/24 10/15/24 History gabapentin 100 mg tablet 100 mg PO BID 10/15/24 10/15/24 History guaifenesin 50 mg/5 mL oral liquid 200 mg PO Q4H PRN Secretions 10/15/24 10/15/24 History hydrocodone 5 mg-acetaminophen 325 1 tab PO Q12HR PRN Moderate Pain 10/15/24 10/15/24 History mg tablet (Scale Score 5-6) lactobacillus combination no.4 3 3,000 mmu cells PO QDAY 10/15/24 10/15/24 History billion cell capsule (Probiotic) magnesium hydroxide 400 mg/5 mL 30 ml PO Q72H PRN Constipation 10/15/24 10/15/24 History oral suspension (Milk of Magnesia) sodium phosphates 19 gram-7 118 ml MO Q72H PRN Constipation 10/15/24 10/15/24 History gram/118 mL enema (Fleet Enema) zinc 10 mg tablet 10 mg PO QDAY 10/15/24 10/15/24 History Allergies Allergy/AdvReac Type Severity Reaction Status Date / Time No Known Allergies Allergy Verified 09/22/24 03:47 Exam Vital Signs Temp Pulse Resp BP Pulse Ox O2 Del Method 97.4 F 87 16 125/75 98 Room Air 12/02/24 12:05 12/02/24 12:06 12/02/24 12:05 12/02/24 12:06 12/02/24 12:05 12/02/24 11:57 Constitutional Constitutional: no acute distress Routine Extremities Exam Comments: Left BKA stump healed well. On the right foot he does not have palpable DP or PT pulses. He has monophasic Doppler signal. He has gangrene of right fifth toe and large area of skin necrosis of right heel. He also have necrotic scabs of adjacent toes Assessment & Plan Problem List (1) Atherosclerosis of [place] artery of right lower extremity with gangrene: Status: Acute Plan I had a lengthy discussion with the patient and explained to him that he has very poor circulation to his foot with gangrene of right fifth toe, large area of skin necrosis of heel and necrotic scabs of his adjacent toes. My recommendation was for him to have right below the knee amputation. However, he wishes to avoid below the knee amputation and would like to have right fifth toe amputated. Doing so well leave large area of skin necrosis of his right heel untreated. I explained to him that amputating right fifth toe and leaving adjacent toes and large area of necrotic skin of his right heel untreated would not be the best course of care for him. He wishes to have a second opinion from another general or orthopedic surgeon.
--- NOTE | 2024-12-02 15:46 | PC.SS ---
Pt is requesting a different SNF in [place] or [place]. Pt is aware his health insurance requires PT notes for insurance authorization. Pt states he has been speaking to [facility] and they are unable to accept monthly payments. Pt states he still has not paid his bill at [facility]. Bedside nurse, April is aware. Pt is aware he is able to return to [facility] once his bill is paid in full. Pt states he has been speaking to his employer and should now have SNF coverage.
[2024-12-02] MEDS: SODIUM CHLORIDE 0.9% 1000 ML 1,000 ML 70 ML IV (17:11)
--- NOTE | 2024-12-02 17:40 | PC.NURSE ---
Dr Hammond in to see patient. Discussed possible treatment options to avoid amputation of right foot. Informed patient that right 5th digit could be removed with debridement of necrotic heel tissue and additional wounds but that healing would be a challenge given the lack of blood flow to the foot and amputation may be inevitable. Recommends reaching out to vascular surgeon to see if anything can be done to restore some blood flow.
--- NOTE | 2024-12-02 18:37 | PD.IMCONS ---
HPI Data of Consult Requesting Physician: Rickie Meneses MD Primary Care Provider: Rickie Meneses MD Consult Narrative Reason for consult: H/H 6.0/19.0 History of present illness: 64 years old male who presented emergency room because of the right fifth toe gangrene from rehab facility in the setting of severe peripheral vascular disease requiring left BKA in August of this year During the course of examination patient was found to have hemoglobin hematocrit 7.4 and 22.5 which is subsequently dropped to 6.0 and 19.0 BUN/creatinine is 53 and 1.7 There is no clear history of hematemesis or hematochezia General surgery is on board for recommendations of right BKA but the patient only wants his right fifth toe amputated and is looking for a second opinion cc:: cc: Rickie Meneses MD Review of Systems Review of Systems Systems Reviewed: All systems reviewed, normal except as documented Past Medical History Surgical History OTHER SURGICAL HX: Peripheral vascular disease Diabetes mellitus type 2 Essential hypertension Hyperlipidemia BKA left leg 09/29/2024 Congestive heart failure with ejection fraction of 25% Meds Home Medications and Allergies Home Medications ?Medication ?Instructions ?Recorded ?Confirmed ?Type alprazolam 0.25 mg tablet 0.25 mg PO Q12HR PRN Anxiety 10/15/24 10/15/24 History ascorbic acid (vitamin C) 500 mg 500 mg PO QDAY 10/15/24 10/15/24 History tablet bisacodyl 10 mg rectal suppository 10 mg [place] QDAY PRN Constipation 10/15/24 10/15/24 History (Dulcolax (bisacodyl)) calcium carbonate 600 mg PO TID 10/15/24 10/15/24 History gabapentin 100 mg tablet 100 mg PO BID 10/15/24 10/15/24 History guaifenesin 50 mg/5 mL oral liquid 200 mg PO Q4H PRN Secretions 10/15/24 10/15/24 History hydrocodone 5 mg-acetaminophen 325 1 tab PO Q12HR PRN Moderate Pain 10/15/24 10/15/24 History mg tablet (Scale Score 5-6) lactobacillus combination no.4 3 3,000 mmu cells PO QDAY 10/15/24 10/15/24 History billion cell capsule (Probiotic) magnesium hydroxide 400 mg/5 mL 30 ml PO Q72H PRN Constipation 10/15/24 10/15/24 History oral suspension (Milk of Magnesia) sodium phosphates 19 gram-7 118 ml [place] Q72H PRN Constipation 10/15/24 10/15/24 History gram/118 mL enema (Fleet Enema) zinc 10 mg tablet 10 mg PO QDAY 10/15/24 10/15/24 History Allergies Allergy/AdvReac Type Severity Reaction Status Date / Time No Known Allergies Allergy Verified 09/22/24 03:47 Exam Vital Signs Temp Pulse Resp BP Pulse Ox O2 Del Method 97.5 F 87 16 140/75 H 98 Room Air 12/02/24 17:05 12/02/24 17:05 12/02/24 17:05 12/02/24 17:05 12/02/24 17:05 12/02/24 16:00 Constitutional Comments: Chronically ill-appearing Routine Respiratory Exam Comments: Normal to auscultation Routine Abdominal Exam Comments: Soft nontender Results Labs 12/02/24 05:03 12/02/24 05:03 Labs: Short CBC 12/01/24 12/02/24 Range/Units 18:36 05:03 WBC 14.2 H 11.6 H (3.8-10.6) Thou/mm3 Hgb 7.4 L 6.0 L* (13.5-16.0) g/dL Hct 22.5 L 19.0 L* (41.0-53.0) % Plt Count 322 282 D (140-440) Thou/mm3 BMP 12/01/24 12/02/24 18:36 05:03 Sodium 136 133 L Potassium 3.9 4.3 Chloride 98 100 Carbon Dioxide 29.6 24.8 BUN 56 H 53 H Creatinine 1.7 H 1.7 H Glucose 218 H 385 H D Calcium 9.2 8.4 Liver Function 12/01/24 12/02/24 Range/Units 18:36 05:03 Total Bilirubin < 0.2 L < 0.2 L (0.3-1.2) mg/dL AST < 8 < 8 (0-34) U/L ALT 12 7 L (10-49) U/L Alkaline Phosphatase 77 67 (46-116) U/L Albumin 4.0 3.6 (3.4-4.8) gm/dL Assessment and Plan Additional Assessment & Plan Additional Plan: # Anemia multifactorial Stool for occult blood Iron panel B12 Folate level Reticulocyte count patient most likely will need invasive GI workup We will follow the patient Patient is very much reluctant to have any invasive GI workup at the moment I will patiently work with him Other medical problems include # XIOMARA BUN 57 creatinine 1.7 # Peripheral vascular disease status post left BKA requiring right BKA Gangrene right fifth toe # Peripheral vascular disease # systolic congestive heart failure # Essential hypertension # Hyperlipidemia # Diabetes mellitus type 2 # Status post left BKA Thank you very much for the opportunity to participate in the care of this patient
[2024-12-02 19:48] LABS: Hematocrit 25.9 % (41.0-53.0); Immature Reticulocyte Fraction 10.5 % (2.3-13.4); Reticulocyte % (Auto) 1.1 % (0.5-1.5); Reticulocyte Absolute Auto 34.5 Biln/L (25.0-75.0)
[2024-12-02 19:52] LABS: Hemoglobin 8.8 g/dL (13.5-16.0)
[2024-12-02 19:53] LABS: Folate 5.36 ng/mL (>5.38); Vitamin B12 476 pg/mL (211-911)
[2024-12-02] MEDS: ATORVASTATIN CALCIUM 20 MG TABLET 40 MG PO (20:06)
[2024-12-02 20:24] LABS: Total Iron Binding Capacity 235 mcg/dL (250-425)
[2024-12-02 21:05] LABS: Percent Iron Saturation 100 % (20-55); Unsaturated Iron Binding 0 (225-295)
[2024-12-02 21:23] LABS: Iron 350 mcg/dL (65-175)
[2024-12-03] VITALS: BP 127/76; PULSE 70; PULSE 76; RESP 20; TEMP 36.3; O2SAT 98
[2024-12-03 04:00] VITALS: BP 143/75; PULSE 73; PULSE 80; RESP 20; TEMP 36.6; O2SAT 96
--- NOTE | 2024-12-03 04:58 | PC.NURSE ---
called [facility] to fax over patient's medication list.
[2024-12-03 05:40] LABS: Basophils # (Auto) 0.1 Thou/mm3 (0.0-0.2); Basophils % (Auto) 1 % (0-2.5); Eosinophils # (Auto) 0.2 Thou/mm3 (0.0-0.5); Eosinophils % (Auto) 2 % (0-10); Hematocrit 23.7 % (41.0-53.0); Immature Granulocytes % (Auto) 1 % (0-0); Immature Granulocytes Auto 0.07 Thou/mm3 (0.00-0.00); Lymphocytes # (Auto) 1.8 Thou/mm3 (1.0-4.8); Lymphocytes % (Auto) 15 % (10-50); Mean Corpuscular HGB Conc 32.1 g/dl (31.0-37.0); Mean Corpuscular Volume 88 fL (80-100); Monocytes # (Auto) 1.5 Thou/mm3 (0.0-0.8); Monocytes % (Auto) 13 % (0-12); Neutrophils # (Auto) 8.3 Thou/mm3 (1.8-7.7); Neutrophils % (Auto) 69 % (37-80); Nucleated Red Blood Cell % 0 /100 WBC (0); Platelet Count 260 Thou/mm3 (140-440); RDW Standard Deviation 47.9 fL (35.1-43.9); Red Blood Count 2.71 Miln/mm3 (4.50-5.90)
[2024-12-03 05:45] LABS: Hemoglobin 7.6 g/dL (13.5-16.0)
[2024-12-03] MEDS: CALCIUM CARBONATE 600 MG TABLET PO ×3 (05:50→21:11)
[2024-12-03] MEDS: PIPER/TAZO INJ 3.375 GM in SODIUM CHLORIDE 0.9% 100 ML IV ×2 (05:55→15:12)
[2024-12-03 06:12] LABS: Alanine Aminotransferase < 7 U/L (10-49); Albumin, Serum 3.6 gm/dL (3.4-4.8); Albumin/Globulin Ratio 1.3 (1.2-2.2); Alkaline Phosphatase 59 U/L (46-116); Anion Gap 11 (7-16); Aspartate Amino Transferase < 10 U/L (0-34); BUN/Creatinine Ratio 31 Ratio (12-20); Bilirubin,Total 0.3 mg/dL (0.3-1.2); Blood Urea Nitrogen 46 mg/dL (9-23); Calcium 8.6 mg/dL (8.3-10.6); Calcium (Corrected) 8.9 mg/dL (8.5-10.1); Carbon Dioxide 20.9 mMol/L (20.0-31.0); Chloride 105 mMol/L (98-107); Creatinine (Component) 1.5 mg/dL (0.6-1.3); Estimated Creatinine Clearance 45.5 mL/min (>60); Globulin 2.7 gm/dL (2.3-3.5); Glucose 117 mg/dL (74-106); Osmolality,Calculated 286 (275-295); Sodium 137 mMol/L (136-145); Total Protein 6.3 gm/dL (5.7-8.2); eGFR 52 See Note
[2024-12-03] MEDS: INSULIN HUM REGULAR 1 UNIT/0.01 ML (PER UNIT) SC ×4 (07:41→21:15)
[2024-12-03 08:00] VITALS: BP 140/77; PULSE 80; PULSE 82; RESP 19; TEMP 36.2; O2SAT 96
[2024-12-03] MEDS: PANTOPRAZOLE 40 MG TABLET PO (08:50)
[2024-12-03] MEDS: ZINC SULFATE 220 MG CAPSULE PO (08:50)
[2024-12-03] MEDS: ASCORBIC ACID 250 MG TABLET 500 MG PO (08:50)
[2024-12-03] MEDS: GABAPENTIN 100 MG CAPSULE PO ×2 (08:50→21:11)
[2024-12-03] MEDS: LACTOBACILLUS RHAMNOSUS 1 CAP PO (08:50)
[2024-12-03] MEDS: INSULIN GLARGINE (Lantus) 5 UNIT/0.05 ML (PER 5 UNITS) 10 UNIT SC ×2 (08:51→17:39)
[2024-12-03 09:34] LABS: OBS QC OK? Yes
[2024-12-03 09:39] LABS: OBS Card Lot # 23001; Occult Blood, Stool Negative (Negative)
[2024-12-03 09:40] LABS: OBS Developer Lot # 23003; OBS Performed By LAUEK1
--- NOTE | 2024-12-03 10:29 | ESPR_ITS ---
Documentation for date of: 12/03/24 Subjective Subjective Interval history: Mr. Gibson is a 64-year-old male with a past medical history of severe peripheral arterial occlusive disease, hypertension, hypercholesterolemia, diabetes mellitus type 2, recent congestive heart failure with ejection fraction 25% , who had a [id number] amputation on 09/29/2024, discharged to [facility] 10/06/2024 for rehabilitation was noted to have right fifth toe gangrene, right heel decubiti (seen by addictions recovery specialist at the rehab and he recommended for him to go to the emergency department) presented to the emergency department for the evaluation of the right fifth toe gangrene Patient admitted for further evaluation. Surgical consultation requested. In the emergency department WBC 14.2, hemoglobin 7.4, platelets 323. Coagulation profile normal, sodium 136, potassium 3.9, BUN 56, creatinine 1.7, A1c 7.5, LFTs normal, albumin 4.0, Pro-Corey negative x-ray showed no cortical thinning destruction. Doppler ultrasound showed severe clinically vascular disease in the right lower extremity. Patient admitted to med telemetry floor. Antibiotics were initiated. Gentle IV fluids initiated for XIOMARA. 12/03/2023 patient currently seen in medical floor. Right fifth toe gangrene. Right third heel decubitus noted. Seen by Dr. Vivar-recommended a right foot amputation due to severe peripheral vascular disease. Patient will reluctantly requested a second opinion. Dr Lobato has seen patient. I did talk to him- agree with Dr. Vivar recommendations although due to patient being very reluctant agreed for right fifth toe amputation and a right heel Debridement along with wound care management. Noted a GI evaluation and patient being very reluctant for GI workup. IV iron, folic acid ordered. Creatinine better at 1.5. Blood pressure 123/78, heart rate 80. Blood sugar 262. Review of Systems Review of Systems Narrative Review of Systems: CONSTITUTIONAL: Patient denies any fever, chills. Complaining of fatigue HEENT: Denies any visual disturbances or hearing problems. CARDIOVASCULAR: Patient denies any chest pain, shortness of breath, swelling in the lower extremities. PULMONARY: Patient denies any shortness of breath, cough. GASTROINTESTINAL: Patient denies any abdominal pain, constipation, nausea, vomiting, diarrhea. GENITOURINARY: Patient denies any urinary symptoms of burning or frequency or hematuria, denies any form in the urine. SKIN see HPI MUSCULOSKELETAL: Left BKA NEUROLOGICAL: Denies any neurological problems of strokes, seizures or confusion. Denies any memory problems. PSYCHIATRIC: Admits depression from current situation Exam Vital Signs Temp Pulse Resp BP Pulse Ox O2 Del Method 36.2 C 80 19 140/77 H 96 Room Air 12/03/24 08:00 12/03/24 08:00 12/03/24 08:00 12/03/24 08:00 12/03/24 08:00 12/03/24 08:00 Narrative Exam GENERAL APPEARANCE: Patient seems to be comfortable, adequately hydrated and nourished. HEENT: EOMI, PERRLA NECK: Neck supple, no JVD or bruit CARDIOVASCULAR: Heart regular, no murmurs LUNGS/CHEST: Chest clear to auscultation. No rales, rhonchi, wheezing ABDOMEN: Soft, nontender, nondistended. No masses. Normal bowel sounds. EXTREMITIES: No edema, clubbing or cyanosis. SKIN: Right fifth toe gangrene. Right heel decubitus. Decubitus noted on the top of the rt toes MUSCULOSKELETAL: In bed, Left BKA NEUROLOGICAL : No neurological deficits. seems sad Objective Labs 12/03/24 05:03 12/03/24 05:03 Labs: Laboratory Results - last 24 hr 12/02/24 12/02/24 12/03/24 06:50 19:13 02:41 WBC RBC Hgb 8.8 L D Hct 25.9 L MCV MCH MCHC RDW Std Deviation Plt Count Neut % (Auto) Lymph % (Auto) [place] % (Auto) Eos % (Auto) Baso % (Auto) Neut # (Auto) Lymph # (Auto) [place] # (Auto) Eos # (Auto) Baso # (Auto) Immature Gran # (Auto) Absolute Nucleated RBC Immature Gran % Nucleated RBC % Retic Count (auto) 1.1 Absolute Retic 34.5 Immature Retic Fraction 10.5 Retic Hgb Content CHr 32.0 Sodium Potassium Chloride Carbon Dioxide Anion Gap BUN Creatinine Estim Creat Clear Calc eGFR BUN/Creatinine Ratio Glucose Calculated Osmolality Calcium Corrected Calcium Iron 350 H* TIBC 235 L Iron Saturation 100 H Unsat Iron Binding 0 L Total Bilirubin AST ALT Alkaline Phosphatase Total Protein Albumin Globulin Albumin/Globulin Ratio Vitamin B12 476 Folate 5.36 L Stool Occult Blood Negative Blood Type A Positive Antibody Screen NEGATIVE Crossmatch See Detail Blood Bank Wristband ID Yes 12/03/24 05:03 WBC 12.0 H RBC 2.71 L Hgb 7.6 L Hct 23.7 L MCV 88 MCH 28.0 MCHC 32.1 RDW Std Deviation 47.9 H Plt Count 260 Neut % (Auto) 69 Lymph % (Auto) 15 [place] % (Auto) 13 H Eos % (Auto) 2 Baso % (Auto) 1 Neut # (Auto) 8.3 H Lymph # (Auto) 1.8 [place] # (Auto) 1.5 H Eos # (Auto) 0.2 Baso # (Auto) 0.1 Immature Gran # (Auto) 0.07 H Absolute Nucleated RBC 0.00 Immature Gran % 1 H Nucleated RBC % 0 Retic Count (auto) Absolute Retic Immature Retic Fraction Retic Hgb Content CHr Sodium 137 Potassium 4.0 Chloride 105 Carbon Dioxide 20.9 Anion Gap 11 BUN 46 H Creatinine 1.5 H Estim Creat Clear Calc 45.5 L eGFR 52 L BUN/Creatinine Ratio 31 H Glucose 117 H D Calculated Osmolality 286 Calcium 8.6 Corrected Calcium 8.9 Iron TIBC Iron Saturation Unsat Iron Binding Total Bilirubin 0.3 AST < 10 ALT < 7 L Alkaline Phosphatase 59 Total Protein 6.3 Albumin 3.6 Globulin 2.7 Albumin/Globulin Ratio 1.3 Vitamin B12 Folate Stool Occult Blood Blood Type Antibody Screen Crossmatch Blood Bank Wristband ID Assessment & Plan Assessment and plan (1) Atherosclerosis of [place] artery of right lower extremity with gangrene: Status: Acute (2) Gangrene of toe of right foot: Status: Acute Assessment and plan: Patient noted to have gangrene of the right toe. Surgical consultation requested. Dr Vivar recommended right foot amputation. Patient waiting urine. Requested second opinion. Dr Lobato was consulted. (3) Acute kidney injury: Status: Acute Assessment and plan: Added IV fluids. Suspect underlying CKD from diabetic nephropathy. (4) Atherosclerosis of artery of extremity with gangrene: Status: Acute Assessment and plan: Severe peripheral vascular disease, underlying longstanding diabetes. Unfortunately, NO vascular surgery construction person. (5) Diabetes: Status: Acute Assessment and plan: Accu-Cheks, sliding scale, consistent carb low (6) Anemia: Status: Acute Assessment and plan: No active bleed currently. Requested GI consultation. Units blood transfusion ordered. Noted patient declined GI workup. IV iron will be given. Iron stores low add folate (7) Hypertension: Status: Acute Assessment and plan: Blood pressure on the lower side. (8) CHF (congestive heart failure): Status: Acute Assessment and plan: Compensated. Additional Assessment & Plan Additional Plan: Estimated length of stay 3 days CODE STATUS full code DVT prophylaxis- scd. Cannot do heparin due to severe anemia GI prophylaxis-Protonix Disposition [facility]
[2024-12-03 12:00] VITALS: BP 128/76; PULSE 83; PULSE 84; RESP 15; TEMP 36.4; O2SAT 97
[2024-12-03 16:00] VITALS: BP 123/78; PULSE 80; PULSE 88; RESP 16; TEMP 36.3; O2SAT 97
--- NOTE | 2024-12-03 17:04 | PD.IMPROG ---
Documentation for date of: 12/03/24 Subjective Subjective Interval history: Patient evaluated Hemoglobin hematocrit 7.0 and 19.4 patient status post blood transfusion now hemoglobin hematocrit went up to 8.8 and 25.9 subsequently dropping to 7.6 and 23.7 Exam Vital Signs Temp Pulse Resp BP Pulse Ox O2 Del Method 97.3 F 80 16 123/78 97 Room Air 12/03/24 16:00 12/03/24 16:00 12/03/24 16:00 12/03/24 16:00 12/03/24 16:00 12/03/24 16:00 Constitutional Comments: Alert oriented Routine Respiratory Exam Comments: Normal to auscultation Objective Labs 12/03/24 05:03 12/03/24 05:03 Labs: Laboratory Results - last 24 hr 12/02/24 12/02/24 12/03/24 06:50 19:13 02:41 WBC RBC Hgb 8.8 L D Hct 25.9 L MCV MCH MCHC RDW Std Deviation Plt Count Neut % (Auto) Lymph % (Auto) [place] % (Auto) Eos % (Auto) Baso % (Auto) Neut # (Auto) Lymph # (Auto) [place] # (Auto) Eos # (Auto) Baso # (Auto) Immature Gran # (Auto) Absolute Nucleated RBC Immature Gran % Nucleated RBC % Retic Count (auto) 1.1 Absolute Retic 34.5 Immature Retic Fraction 10.5 Retic Hgb Content CHr 32.0 Sodium Potassium Chloride Carbon Dioxide Anion Gap BUN Creatinine Estim Creat Clear Calc eGFR BUN/Creatinine Ratio Glucose Calculated Osmolality Calcium Corrected Calcium Iron 350 H* TIBC 235 L Iron Saturation 100 H Unsat Iron Binding 0 L Total Bilirubin AST ALT Alkaline Phosphatase Total Protein Albumin Globulin Albumin/Globulin Ratio Vitamin B12 476 Folate 5.36 L Stool Occult Blood Negative Crossmatch See Detail 12/03/24 05:03 WBC 12.0 H RBC 2.71 L Hgb 7.6 L Hct 23.7 L MCV 88 MCH 28.0 MCHC 32.1 RDW Std Deviation 47.9 H Plt Count 260 Neut % (Auto) 69 Lymph % (Auto) 15 [place] % (Auto) 13 H Eos % (Auto) 2 Baso % (Auto) 1 Neut # (Auto) 8.3 H Lymph # (Auto) 1.8 [place] # (Auto) 1.5 H Eos # (Auto) 0.2 Baso # (Auto) 0.1 Immature Gran # (Auto) 0.07 H Absolute Nucleated RBC 0.00 Immature Gran % 1 H Nucleated RBC % 0 Retic Count (auto) Absolute Retic Immature Retic Fraction Retic Hgb Content CHr Sodium 137 Potassium 4.0 Chloride 105 Carbon Dioxide 20.9 Anion Gap 11 BUN 46 H Creatinine 1.5 H Estim Creat Clear Calc 45.5 L eGFR 52 L BUN/Creatinine Ratio 31 H Glucose 117 H D Calculated Osmolality 286 Calcium 8.6 Corrected Calcium 8.9 Iron TIBC Iron Saturation Unsat Iron Binding Total Bilirubin 0.3 AST < 10 ALT < 7 L Alkaline Phosphatase 59 Total Protein 6.3 Albumin 3.6 Globulin 2.7 Albumin/Globulin Ratio 1.3 Vitamin B12 Folate Stool Occult Blood Crossmatch Impressions Impression: # Acute posthemorrhagic anemia Patient very reluctant for any invasive GI workup # Severe peripheral vascular disease right lower extremity leading to gangrene of the right fifth toe Continue to monitor hemoglobin hematocrit If the patient changes his mind I will be happy to perform upper endoscopy and a colonoscopy Assessment & Plan A&P Narrative # Anemia multifactorial Stool for occult blood Iron panel B12 Folate level Reticulocyte count patient most likely will need invasive GI workup We will follow the patient Patient is very much reluctant to have any invasive GI workup at the moment I will patiently work with him Other medical problems include # XIOMARA BUN 57 creatinine 1.7 # Peripheral vascular disease status post left BKA requiring right BKA Gangrene right fifth toe # Peripheral vascular disease # systolic congestive heart failure # Essential hypertension # Hyperlipidemia # Diabetes mellitus type 2 # Status post left BKA Thank you very much for the opportunity to participate in the care of this patient Time Spent With Patient Time: Total time spent is greater than 50% in coordination of care (as documented) at patient's floor/unit and/or counseling patient:
[2024-12-03] MEDS: FOLIC ACID 1 MG TABLET PO (17:45)
[2024-12-03 20:00] VITALS: BP 163/88; PULSE 79; PULSE 88; RESP 19; TEMP 36.1; O2SAT 98
[2024-12-03] MEDS: HYDROcodone/APAP 5/325 TABLET 1 TAB PO (21:10)
[2024-12-03] MEDS: ATORVASTATIN CALCIUM 20 MG TABLET 40 MG PO (21:11)
[2024-12-03] MEDS: PIPER/TAZO INJ 3.375 GM in SODIUM CHLORIDE 0.9% (P) 100 ML IV (21:11)
--- NOTE | 2024-12-03 22:34 | XR_ITS ---
Examination: PA lateral chest 2 views Technique: Upright PA lateral chest 2 views Exam date and time: December 04, 2024 0807 hrs. Indications: Preop Findings: Mild prominence of ventricle Mild vascular congestion. No lobar pneumonia or pulmonary edema. The osseous structures are intact Impression: Mild vascular congestion
--- NOTE | 2024-12-03 23:26 | ESCONSULT_ITS ---
RE: EDDIE LAMBERT : 1960 DATE OF CONSULTATION: 12/04/2024 HISTORY OF PRESENT ILLNESS: This patient is a 64-year-old white male who was seen because of severe peripheral vascular disease, ulceration and gangrene of the right fifth toe. The patient has been chronically ill with multiple medical problems including diabetes, severe peripheral vascular disease both sides, hypertension, congestive heart failure, pleural effusion, anemia, and pulmonary embolism. The patient was admitted to this hospital ever since August of this year frequently and has undergone multiple evaluations and care. The patient developed pleural effusion, which was stopped and cardiology evaluation showed ejection fraction of only 25% due to congestive heart failure. The patient's other medical problem consisted of severe foot ulceration, which resulted in BK amputation on the left side below the knee. Now he is admitted with the same problem and his right foot shows gangrene of the fifth toe as well as multiple superficial ulcerations over the dorsal aspect and a large necrotic ulcer over the heel. The patient also has a small superficial necrotic ulceration over the knee joint anteriorly. The patient was followed by Dr. Vivar who advised to BK amputation. The patient wanted another opinion to see if he can avoid amputation at least this time because he is still recovering from the amputation on the left side. PHYSICAL EXAMINATION: General: Revealed chronically ill white male who is 5 feet 6 inches tall and weighing 159 pounds with a BMI of 25.6. Examination of the systems reveal that the patient has been having pulmonary problems even though at the present he is not exhibiting any. Extremities: Examination of the lower extremities revealed that the patient has had a BK amputation on the left side with a nicely healed stump. Right lower extremity revealed gangrene of the right fifth toe and superficial ulcerations over all the toes except the fourth toe and then a large heel ulceration measuring 5 to 6 cm in diameter. This was not ulceration it is actually necrotic area. The patient has no palpable pedal pulses or popliteal pulses. The patient had a Doppler of lower extremity which revealed significant right lower extremity peripheral obstructive arterial disease. There has been no flow in the right posterior tibial artery. The patient's skin over the right leg shows ischemic changes. IMPRESSION: 1. Ischemia of the right foot with multiple ulcerations. 2. Gangrene of the right fifth toe. 3. Necrosis of the right heel. 4. Hypertension. 5. Diabetes mellitus. 6. Congestive heart failure with poor ejection fraction. 7. History of pulmonary emboli. 8. Chronic renal problem. 9. Chronic back pain. COURSE OF ACTION: I agree with Dr. Vivar that this patient will eventually end up with a below-knee amputation. However, he wants to wait for some more time and see if the ulcers can be debrided and then attempts made at the wound care to see if he can get some healing. I told the patient the chances of these ulcers healing will be very small. Because of the lack of circulation, the debridement and ulcer is not going to heal. However, he is wanting to see a vascular surgeon and hoping for angioplasty to increase the inflow on the right foot and leg. I have therefore advised that I can arrange for a debridement for the time being and trying to get the vascular surgery involved. The risk of the operation including morbidity and mortality was discussed with the patient. He is a high risk for anesthesia. We will have evaluate Anesthesia to look at him and decide before surgery. He is also anemic, but I do not expect any blood loss during the procedure. cc: Rickie Meneses MD DT: 22:48:24 TT: 23:25:00 Ref: [id number] - TID: [id number]
[2024-12-04] VITALS (15 sets, daily range): BP systolic 130–158; BP diastolic 71–94; PULSE 71–97; RESP 9–25; TEMP 36.1–36.7; O2SAT 98–100
[2024-12-04] MEDS: PIPER/TAZO INJ 3.375 GM in SODIUM CHLORIDE 0.9% (P) 100 ML IV ×3 (05:52→21:18)
[2024-12-04 06:23] LABS: Basophils # (Auto) 0.1 Thou/mm3 (0.0-0.2); Basophils % (Auto) 1 % (0-2.5); Eosinophils # (Auto) 0.2 Thou/mm3 (0.0-0.5); Eosinophils % (Auto) 2 % (0-10); Hematocrit 24.3 % (41.0-53.0); Immature Granulocytes % (Auto) 1 % (0-0); Immature Granulocytes Auto 0.07 Thou/mm3 (0.00-0.00); Lymphocytes # (Auto) 1.8 Thou/mm3 (1.0-4.8); Lymphocytes % (Auto) 16 % (10-50); Mean Corpuscular HGB Conc 32.5 g/dl (31.0-37.0); Mean Corpuscular Hemoglobin 28.5 pg (25.0-35.0); Mean Corpuscular Volume 88 fL (80-100); Monocytes # (Auto) 1.4 Thou/mm3 (0.0-0.8); Monocytes % (Auto) 13 % (0-12); Neutrophils # (Auto) 7.6 Thou/mm3 (1.8-7.7); Neutrophils % (Auto) 68 % (37-80); Nucleated Red Blood Cell % 0 /100 WBC (0); Platelet Count 236 Thou/mm3 (140-440); RDW Standard Deviation 48.1 fL (35.1-43.9); Red Blood Count 2.77 Miln/mm3 (4.50-5.90); White Blood Count 11.1 Thou/mm3 (3.8-10.6)
[2024-12-04 06:25] LABS: Hemoglobin 7.9 g/dL (13.5-16.0)
[2024-12-04 07:11] LABS: Alanine Aminotransferase 8 U/L (10-49); Albumin, Serum 3.6 gm/dL (3.4-4.8); Albumin/Globulin Ratio 1.3 (1.2-2.2); Alkaline Phosphatase 62 U/L (46-116); Anion Gap 11 (7-16); Aspartate Amino Transferase 10 U/L (0-34); BUN/Creatinine Ratio 23 Ratio (12-20); Bilirubin,Total 0.2 mg/dL (0.3-1.2); Blood Urea Nitrogen 41 mg/dL (9-23); Calcium 8.5 mg/dL (8.3-10.6); Calcium (Corrected) 8.8 mg/dL (8.5-10.1); Chloride 106 mMol/L (98-107); Creatinine (Component) 1.8 mg/dL (0.6-1.3); Estimated Creatinine Clearance 37.9 mL/min (>60); Globulin 2.7 gm/dL (2.3-3.5); Glucose 150 mg/dL (74-106); Osmolality,Calculated 288 (275-295); Potassium 3.8 mMol/L (3.4-5.1); Sodium 138 mMol/L (136-145); Total Protein 6.3 gm/dL (5.7-8.2); eGFR 42 See Note
--- NOTE | 2024-12-04 08:51 | PC.NURSE ---
patient to surgery
--- NOTE | 2024-12-04 08:58 | PD.NEPHPROG ---
Documentation for date of: 12/04/24 Subjective Subjective Interval history: Mr. Gibson is a 64-year-old male with a past medical history of severe peripheral arterial occlusive disease, hypertension, hypercholesterolemia, diabetes mellitus type 2, recent congestive heart failure with ejection fraction 25% , who had a [id number] amputation on 09/29/2024, discharged to [facility] 10/06/2024 for rehabilitation was noted to have right fifth toe gangrene, right heel decubiti (seen by nuclear operations specialist at the rehab and he recommended for him to go to the emergency department) presented to the emergency department for the evaluation of the right fifth toe gangrene Patient admitted for further evaluation. Surgical consultation requested. In the emergency department WBC 14.2, hemoglobin 7.4, platelets 323. Coagulation profile normal, sodium 136, potassium 3.9, BUN 56, creatinine 1.7, A1c 7.5, LFTs normal, albumin 4.0, Pro-Corey negative x-ray showed no cortical thinning destruction. Doppler ultrasound showed severe clinically vascular disease in the right lower extremity. Patient admitted to med telemetry floor. Antibiotics were initiated. Gentle IV fluids initiated for XIOMARA. 12/03/2024 patient currently seen in medical floor. Right fifth toe gangrene. Right third heel decubitus noted. Seen by Dr. Vivar-recommended a right foot amputation due to severe peripheral vascular disease. Patient will reluctantly requested a second opinion. Dr Lobato has seen patient. I did talk to him-agree with Dr. Vivar recommendations although due to patient being very reluctant agreed for right fifth toe amputation and a right heel Debridement along with wound care management. Noted a GI evaluation and patient being very reluctant for GI workup. IV iron, folic acid ordered. Creatinine better at 1.5. Blood pressure 123/78, heart rate 80. Blood sugar 262. 12/04/2023 patient currently seen in medical floor. Status post right fifth toe amputation for gangrene. Also has a right heel decubitus debridement. Dr. Dr. Hammond on the case. Patient also noted to have anemia. Seen by GI-recommended EGD/colonoscopy and patient declined.Blood pressure 145/86, heart rate 85. WBC 11.1, hemoglobin 7.9, platelets 236. Sodium 138, potassium 3.8, BUN 41, creatinine 1.8, glucose 150, LFTs normal, chest x-ray showed mild vascular congestion. Patient currently on Zosyn Review of Systems Review of Systems Narrative Review of Systems: CONSTITUTIONAL: Patient denies any fever, chills. Complaining of fatigue HEENT: Denies any visual disturbances or hearing problems. CARDIOVASCULAR: Patient denies any chest pain, shortness of breath, swelling in the lower extremities. PULMONARY: Patient denies any shortness of breath, cough. GASTROINTESTINAL: Patient denies any abdominal pain, constipation, nausea, vomiting, diarrhea. GENITOURINARY: Patient denies any urinary symptoms of burning or frequency or hematuria, denies any form in the urine. SKIN see HPI MUSCULOSKELETAL: Left BKA NEUROLOGICAL: Denies any neurological problems of strokes, seizures or confusion. Denies any memory problems. PSYCHIATRIC: Admits depression from current situation Exam Vital Signs Temp Pulse Resp BP Pulse Ox O2 Del Method 36.6 C 72 12 130/71 98 Room Air 12/04/24 08:00 12/04/24 08:00 12/04/24 08:00 12/04/24 08:00 12/04/24 08:00 12/04/24 08:00 Narrative Exam GENERAL APPEARANCE: Patient seems to be comfortable, adequately hydrated and nourished. HEENT: EOMI, PERRLA NECK: Neck supple, no JVD or bruit CARDIOVASCULAR: Heart regular, no murmurs LUNGS/CHEST: Chest clear to auscultation. No rales, rhonchi, wheezing ABDOMEN: Soft, nontender, nondistended. No masses. Normal bowel sounds. EXTREMITIES: No edema, clubbing or cyanosis. SKIN: Right fifth toe amputation. Right heel decubitus--debridement. Foot wrapped MUSCULOSKELETAL: In bed, Left BKA NEUROLOGICAL : No neurological deficits. seems sad Objective Labs 12/04/24 05:21 12/04/24 05:21 Labs: Laboratory Results - last 24 hr 12/03/24 12/04/24 02:41 05:21 WBC 11.1 H RBC 2.77 L Hgb 7.9 L Hct 24.3 L MCV 88 MCH 28.5 MCHC 32.5 RDW Std Deviation 48.1 H Plt Count 236 Neut % (Auto) 68 Lymph % (Auto) 16 [place] % (Auto) 13 H Eos % (Auto) 2 Baso % (Auto) 1 Neut # (Auto) 7.6 Lymph # (Auto) 1.8 [place] # (Auto) 1.4 H Eos # (Auto) 0.2 Baso # (Auto) 0.1 Immature Gran # (Auto) 0.07 H Absolute Nucleated RBC 0.00 Immature Gran % 1 H Nucleated RBC % 0 Sodium 138 Potassium 3.8 Chloride 106 Carbon Dioxide 21.0 Anion Gap 11 BUN 41 H Creatinine 1.8 H Estim Creat Clear Calc 37.9 L eGFR 42 L BUN/Creatinine Ratio 23 H Glucose 150 H Calculated Osmolality 288 Calcium 8.5 Corrected Calcium 8.8 Total Bilirubin 0.2 L AST 10 ALT 8 L Alkaline Phosphatase 62 Total Protein 6.3 Albumin 3.6 Globulin 2.7 Albumin/Globulin Ratio 1.3 Stool Occult Blood Negative Assessment & Plan Assessment and plan (1) Atherosclerosis of [place] artery of right lower extremity with gangrene: Status: Acute (2) Gangrene of toe of right foot: Status: Acute Assessment and plan: Patient noted to have gangrene of the right fifth toe. Dr Lobato did fifth toe amputation. Patient currently on Zosyn. Will need vascular intervention as an outpatient and wound care center consultation. (3) Acute kidney injury: Status: Acute Assessment and plan: Added IV fluids. Suspect underlying CKD from diabetic nephropathy. (4) Atherosclerosis of artery of extremity with gangrene: Status: Acute Assessment and plan: Severe peripheral vascular disease, underlying longstanding diabetes. 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 (5) Diabetes: Status: Acute Assessment and plan: Accu-Cheks, sliding scale, consistent carb low (6) Anemia: Status: Acute Assessment and plan: No active bleed currently. Requested GI consultation. Units blood transfusion ordered. Noted patient declined GI workup. IV iron will be given. Iron stores low add folate (7) Hypertension: Status: Acute Assessment and plan: Blood pressure on the lower side. (8) CHF (congestive heart failure): Status: Acute Assessment and plan: Compensated. Chest x-ray normal Additional Assessment & Plan Additional Plan: Estimated length of stay 3 days CODE STATUS full code DVT prophylaxis- scd. Cannot do heparin due to severe anemia GI prophylaxis-Protonix Disposition [facility]
--- NOTE | 2024-12-04 10:04 | PD.SUROPNT ---
Date of Procedure 12/04/24 Pre Op Diagnosis Gangrene right fifth toe Necrosis right heel Post Op Diagnosis Same Procedure Amputation of the right fifth toe at the proximal phalangeal level Debridement of right heel ulcer with skin full-thickness Findings Patient is found to have a very poor vascular supply and therefore has multiple superficial ulcers that are necrotic. Patient also had large a necrotic heel measuring 6 cm in diameter. Patient had a gangrene of the right fifth toe Procedure Description The patient was brought to the operating room regional anesthesia was given by Dr. Booker. The leg was washed with Betadine solution and draped in a sterile manner. Timeout was performed. Using 15 blade and 10 blade knife I removed all the necrotic skin's over the top of all the toes except the fourth toe. Then the anterior full-thickness skin on the heel which was necrotic and black was excised with a 10 blade knife. There was no active bleeding. Then I made a racquet shaped incision over the fifth toe and then removed the fifth toe at the proximal phalangeal. There is absolutely no bleeding suggesting advanced peripheral vascular disease. Wound was then dressed with 4 x 4 gauze and Kerlix. Patient tolerated the procedure well Anesthesia regional (Ankle block) Pathology / specimen Other (Amputated fifth toe) Estimated Blood Loss 0 Surgeon Genesis Lobato MD Surgical Staff Operation Date: 12/04/24 09:00 <No data on this case meets the specified criteria>
--- NOTE | 2024-12-04 10:12 | SUR.PHASEI ---
pt received from OR in recovery bay 1. pt asleep but responds to voice, breathing unlabored on oxymask 6l. v/s stable. pt dressing to right foot cdi. report received from Juan KELLY and Dr. Storm
--- NOTE | 2024-12-04 10:27 | SUR.PHASEI ---
pt able to tolerate oral fluids without difficulty swallowing or nausea/vomiting.
--- NOTE | 2024-12-04 10:45 | SUR.PHASEI ---
pt awake and alert, breathing unlabored on room air. v/s stable. pt dressing to right foot cdi. report called to April KELLY. pt will be transferred to room at this time.
--- NOTE | 2024-12-04 11:22 | PC.NURSE ---
Pt back from surgery. Dressing to right foot CDI. No pain or distress
[2024-12-04] MEDS: INSULIN GLARGINE (Lantus) 5 UNIT/0.05 ML (PER 5 UNITS) 10 UNIT SC ×2 (11:27→17:50)
[2024-12-04] MEDS: INSULIN HUM REGULAR 1 UNIT/0.01 ML (PER UNIT) SC ×3 (11:28→21:24)
[2024-12-04] MEDS: CALCIUM CARBONATE 600 MG TABLET PO ×2 (15:15→21:18)
--- NOTE | 2024-12-04 17:21 | PD.IMPROG ---
Documentation for date of: 12/04/24 Subjective Subjective Interval history: Hemoglobin hematocrit 7.9 and 24.3 No signs of any active bleeding Patient is not interested in having any invasive GI workup Exam Vital Signs Temp Pulse Resp BP Pulse Ox O2 Del Method O2 Flow Rate 97.8 F 85 9 L 145/86 H 98 Room Air 6 12/04/24 16:00 12/04/24 16:00 12/04/24 16:00 12/04/24 16:00 12/04/24 16:00 12/04/24 16:00 12/04/24 10:12 Routine Respiratory Exam Comments: Normal to auscultation Routine Abdominal Exam Comments: Soft nontender Objective Labs 12/04/24 05:21 12/04/24 05:21 Labs: Laboratory Results - last 24 hr 12/04/24 05:21 WBC 11.1 H RBC 2.77 L Hgb 7.9 L Hct 24.3 L MCV 88 MCH 28.5 MCHC 32.5 RDW Std Deviation 48.1 H Plt Count 236 Neut % (Auto) 68 Lymph % (Auto) 16 [place] % (Auto) 13 H Eos % (Auto) 2 Baso % (Auto) 1 Neut # (Auto) 7.6 Lymph # (Auto) 1.8 [place] # (Auto) 1.4 H Eos # (Auto) 0.2 Baso # (Auto) 0.1 Immature Gran # (Auto) 0.07 H Absolute Nucleated RBC 0.00 Immature Gran % 1 H Nucleated RBC % 0 Sodium 138 Potassium 3.8 Chloride 106 Carbon Dioxide 21.0 Anion Gap 11 BUN 41 H Creatinine 1.8 H Estim Creat Clear Calc 37.9 L eGFR 42 L BUN/Creatinine Ratio 23 H Glucose 150 H Calculated Osmolality 288 Calcium 8.5 Corrected Calcium 8.8 Total Bilirubin 0.2 L AST 10 ALT 8 L Alkaline Phosphatase 62 Total Protein 6.3 Albumin 3.6 Globulin 2.7 Albumin/Globulin Ratio 1.3 Impressions Impression: # Acute posthemorrhagic anemia # PAD with gangrene of the right foot fifth toe and also heel Workup in progress Assessment & Plan A&P Narrative # Anemia multifactorial Stool for occult blood Iron panel B12 Folate level Reticulocyte count patient most likely will need invasive GI workup We will follow the patient Patient is very much reluctant to have any invasive GI workup at the moment I will patiently work with him Other medical problems include # XIOMARA BUN 57 creatinine 1.7 # Peripheral vascular disease status post left BKA requiring right BKA Gangrene right fifth toe # Peripheral vascular disease # systolic congestive heart failure # Essential hypertension # Hyperlipidemia # Diabetes mellitus type 2 # Status post left BKA Thank you very much for the opportunity to participate in the care of this patient Time Spent With Patient Time: Total time spent is greater than 50% in coordination of care (as documented) at patient's floor/unit and/or counseling patient:
[2024-12-04] MEDS: LOPERAMIDE 2 MG CAPSULE PO (21:17)
[2024-12-04] MEDS: HYDROcodone/APAP 5/325 TABLET 1 TAB PO (21:17)
[2024-12-04] MEDS: ATORVASTATIN CALCIUM 20 MG TABLET 40 MG PO (21:18)
[2024-12-04] MEDS: GABAPENTIN 100 MG CAPSULE PO (21:18)
[2024-12-05] VITALS (9 sets, daily range): BP systolic 121–133; BP diastolic 64–77; PULSE 72–89; RESP 17–19; TEMP 36.1–36.4; O2SAT 94–99; BMI 14.0
[2024-12-05] MEDS: CALCIUM CARBONATE 600 MG TABLET PO ×3 (05:50→21:51)
[2024-12-05] MEDS: LOPERAMIDE 2 MG CAPSULE PO (05:50)
[2024-12-05] MEDS: PIPER/TAZO INJ 3.375 GM in SODIUM CHLORIDE 0.9% (P) 100 ML IV ×3 (05:51→21:43)
[2024-12-05 05:59] LABS: Basophils # (Auto) 0.1 Thou/mm3 (0.0-0.2); Basophils % (Auto) 1 % (0-2.5); Eosinophils # (Auto) 0.3 Thou/mm3 (0.0-0.5); Eosinophils % (Auto) 2 % (0-10); Hematocrit 26.1 % (41.0-53.0); Immature Granulocytes % (Auto) 1 % (0-0); Immature Granulocytes Auto 0.06 Thou/mm3 (0.00-0.00); Lymphocytes # (Auto) 1.7 Thou/mm3 (1.0-4.8); Lymphocytes % (Auto) 13 % (10-50); Mean Corpuscular HGB Conc 32.6 g/dl (31.0-37.0); Mean Corpuscular Hemoglobin 28.2 pg (25.0-35.0); Mean Corpuscular Volume 87 fL (80-100); Monocytes # (Auto) 1.3 Thou/mm3 (0.0-0.8); Monocytes % (Auto) 10 % (0-12); Neutrophils # (Auto) 9.2 Thou/mm3 (1.8-7.7); Neutrophils % (Auto) 73 % (37-80); Nucleated Red Blood Cell % 0 /100 WBC (0); Platelet Count 295 Thou/mm3 (140-440); RDW Standard Deviation 47.6 fL (35.1-43.9); Red Blood Count 3.01 Miln/mm3 (4.50-5.90); White Blood Count 12.5 Thou/mm3 (3.8-10.6)
[2024-12-05 06:02] LABS: Hemoglobin 8.5 g/dL (13.5-16.0)
[2024-12-05 06:09] LABS: Alanine Aminotransferase 7 U/L (10-49); Albumin, Serum 3.6 gm/dL (3.4-4.8); Albumin/Globulin Ratio 1.1 (1.2-2.2); Alkaline Phosphatase 65 U/L (46-116); Anion Gap 10 (7-16); Aspartate Amino Transferase 11 U/L (0-34); BUN/Creatinine Ratio 21 Ratio (12-20); Bilirubin,Total 0.2 mg/dL (0.3-1.2); Blood Urea Nitrogen 35 mg/dL (9-23); Calcium 8.5 mg/dL (8.3-10.6); Calcium (Corrected) 8.8 mg/dL (8.5-10.1); Carbon Dioxide 22.9 mMol/L (20.0-31.0); Chloride 108 mMol/L (98-107); Creatinine (Component) 1.7 mg/dL (0.6-1.3); Estimated Creatinine Clearance 40.1 mL/min (>60); Globulin 3.3 gm/dL (2.3-3.5); Glucose 73 mg/dL (74-106); Osmolality,Calculated 288 (275-295); Potassium 3.6 mMol/L (3.4-5.1); Sodium 141 mMol/L (136-145); Total Protein 6.9 gm/dL (5.7-8.2); eGFR 45 See Note
[2024-12-05] MEDS: INSULIN GLARGINE (Lantus) 5 UNIT/0.05 ML (PER 5 UNITS) 10 UNIT SC ×2 (08:50→16:53)
[2024-12-05] MEDS: ASCORBIC ACID 250 MG TABLET 500 MG PO (08:50)
[2024-12-05] MEDS: ZINC SULFATE 220 MG CAPSULE PO (08:50)
[2024-12-05] MEDS: FOLIC ACID 1 MG TABLET PO (08:50)
[2024-12-05] MEDS: LACTOBACILLUS RHAMNOSUS 1 CAP PO (08:51)
[2024-12-05] MEDS: PANTOPRAZOLE 40 MG TABLET PO (08:51)
[2024-12-05] MEDS: GABAPENTIN 100 MG CAPSULE PO ×2 (08:51→21:40)
[2024-12-05] MEDS: INSULIN HUM REGULAR 1 UNIT/0.01 ML (PER UNIT) SC ×3 (12:32→21:41)
--- NOTE | 2024-12-05 17:38 | PD.RESPRO ---
Documentation for date of: 12/05/24 Subjective Subjective Interval history: Patient was seen and examined at bedside, patient denied any new symptoms, blood pressure 132/73, his urine output still has hemoglobin stable at 8.5, WBC 12.5, his serum creatinine is 1.7, still did not improve. Patient at this time on Zosyn. Pending general surgery recommendations and follow-up on the wound status and also pending PT evaluation for discharge. Exam Vital Signs Temp Pulse Resp BP Pulse Ox O2 Del Method O2 Flow Rate 97.1 F 85 18 129/77 99 Room Air 6 12/05/24 15:55 12/05/24 15:55 12/05/24 15:55 12/05/24 15:55 12/05/24 15:55 12/05/24 12:00 12/04/24 10:12 Narrative Exam GEN: AOx3, able to speak full sentences HEENT: NC/AC, oral mucosa moist, neck supple CVS: RRR, S1-S2 present, no murmurs appreciated RESP: CTAB GI: soft,non distended, non tender, NBS MSK: Right fifth toe amputation newly dressed, left BKA, able to move all 4 limbs. Has decubitus wound ulcer. SKIN: warm and dry EARLY BREASTFEEDING CARE SPECIALIST: CN II-XII and Sensation grossly intact. Objective Labs 12/06/24 05:26 12/06/24 05:26 Labs: Laboratory Results - last 24 hr 12/05/24 04:32 WBC 12.5 H RBC 3.01 L Hgb 8.5 L Hct 26.1 L MCV 87 MCH 28.2 MCHC 32.6 RDW Std Deviation 47.6 H Plt Count 295 D Neut % (Auto) 73 Lymph % (Auto) 13 [place] % (Auto) 10 Eos % (Auto) 2 Baso % (Auto) 1 Neut # (Auto) 9.2 H Lymph # (Auto) 1.7 [place] # (Auto) 1.3 H Eos # (Auto) 0.3 Baso # (Auto) 0.1 Immature Gran # (Auto) 0.06 H Absolute Nucleated RBC 0.00 Immature Gran % 1 H Nucleated RBC % 0 Sodium 141 Potassium 3.6 Chloride 108 H Carbon Dioxide 22.9 Anion Gap 10 BUN 35 H Creatinine 1.7 H Estim Creat Clear Calc 40.1 L eGFR 45 L BUN/Creatinine Ratio 21 H Glucose 73 L D Calculated Osmolality 288 Calcium 8.5 Corrected Calcium 8.8 Total Bilirubin 0.2 L AST 11 ALT 7 L Alkaline Phosphatase 65 Total Protein 6.9 Albumin 3.6 Globulin 3.3 Albumin/Globulin Ratio 1.1 L Quality Measures Quality Measures none Assessment & Plan Assessment Current Active Medications: Generic Name Dose Route Start Last Admin Trade Name Freq PRN Reason Stop Dose Admin Hydrocodone Bitart/Acetaminophen 1 tab 12/01/24 21:35 12/04/24 21:17 Hydrocodone/Apap 5/325 Tablet PO 12/06/24 21:34 1 tab Q12HR PRN Administration Moderate Pain (Scale Score 5-6) Alprazolam 0.25 mg 12/04/24 11:34 Alprazolam 0.25 Mg Tablet PO 12/06/24 21:34 Q12HR PRN Anxiety Ascorbic Acid 500 mg 12/02/24 09:00 12/05/24 08:50 Ascorbic Acid 250 Mg Tablet PO 01/01/25 08:59 500 mg QDAY JAZMÍN Administration Atorvastatin Calcium 40 mg 12/02/24 21:00 12/04/24 21:18 Atorvastatin Calcium 20 Mg Tablet PO 01/01/25 20:59 40 mg HS JAZMÍN Administration Bisacodyl 10 mg 12/02/24 09:00 Bisacodyl 10 Mg Supp ID 01/01/25 08:59 QDAY PRN CONSTIPATION Protocol Calcium Carbonate 600 mg 12/01/24 22:00 12/05/24 13:30 Calcium Carbonate 600 Mg Tablet PO 12/31/24 21:59 600 mg TID JAZMÍN Administration Dextrose 25 ml 12/01/24 21:35 Dextrose 50%-Water Inj 50 Ml Syringe IV 12/31/24 21:34 Q15MIN PRN BG 50-70 responsive npo pt Dextrose 50 ml 12/01/24 21:35 Dextrose 50%-Water Inj 50 Ml Syringe IV 12/31/24 21:34 Q15MIN PRN BG <50 OR BG <70 & pt unresponsive Folic Acid 1 mg 12/03/24 17:45 12/05/24 08:50 Folic Acid 1 Mg Tablet PO 01/02/25 17:44 1 mg QDAY JAZMÍN Administration Gabapentin 100 mg 12/02/24 09:00 12/05/24 08:51 Gabapentin 100 Mg Capsule PO 01/01/25 08:59 100 mg BID JAZMÍN Administration Glucagon 1 mg 12/01/24 21:35 Glucagon Inj 1 Mg Vial IM Q15MIN PRN BG <70, and no IV access Piperacillin Sod/Tazobactam 100 mls @ 25 mls/hr 12/03/24 22:00 12/05/24 13:31 Sod 3.375 gm/ Sodium Chloride IV 12/10/24 21:59 25 mls/hr Q8HR JAZMÍN Administration Insulin Glargine 10 unit 12/03/24 17:30 12/05/24 16:53 Insulin Glargine (Lantus) 5 Unit/0.05 Ml (Per 5 Units) SC 01/02/25 17:29 10 unit BIDWM JAZMÍN Administration Insulin Human Regular 0 unit 12/04/24 21:00 12/05/24 16:44 Insulin Hum Regular 1 Unit/0.01 Ml (Per Unit) SC 01/03/25 20:59 10 unit ACHS JAZMÍN Administration Protocol Lactobacillus Rhamnosus 1 cap 12/03/24 09:00 12/05/24 08:51 Lactobacillus Rhamnosus 1 Cap PO 01/02/25 08:59 1 cap QDAY JAZMÍN Administration Loperamide HCl 2 mg 12/04/24 20:24 12/05/24 05:50 Loperamide 2 Mg Capsule PO 12/11/24 20:23 2 mg Q6HR PRN Administration loose stools Magnesium Hydroxide 30 ml 12/01/24 23:40 Milk Of Magnesia Susp 30 Ml Udc PO 12/31/24 23:44 Q72H PRN CONSTIPATION Protocol Pantoprazole Sodium 40 mg 12/02/24 09:00 12/05/24 08:51 Pantoprazole 40 Mg Tablet PO 01/01/25 08:59 40 mg QDAY JAZMÍN Administration Zinc Sulfate 220 mg 12/03/24 09:00 12/05/24 08:50 Zinc Sulfate 220 Mg Capsule PO 01/02/25 08:59 220 mg QDAY JAZMÍN Administration Plan #Gangrene of the fifth toe of the right foot status post amputation #Severe peripheral artery disease Arterial duplex of the lower extremity showed severe arterial stenosis, on presentation patient came with fifth toe of the right foot gangrene status post ablation by Dr. Hammond. Patient tolerating the procedure well. Plan ? PT evaluation for possible discharge ? Continue patient on Zosyn until clearance from the general surgeon Dr. Hammond ?Continue wound care ? Will consider outpatient referral to vascular surgeon for possible intervention to improve his amputation outcomes inpatient/outpatient ?Gabapentin 100 mg p.o. twice daily ? Zinc sulfate 220 mg p.o. daily ? Vitamin C 500 mg p.o. daily #XIOMARA on CKD Patient baseline serum creatinine is 1.2 however he has underlying CKD due to his diabetes mellitus Patient did not improve with IV fluids. Plan ? Pharmacy to dose medications ? Avoid nephrotoxic medications ? Daily BMP ? Will continue to monitor #History of diabetes mellitus Plan ?Insulin glargine 10 units twice daily ? Insulin sliding scale ? Hypoglycemia protocol in place ? Low carb consistent diet #Severe anemia Consultation to the medical technicians Dr. Griffin was ordered, however, patient denied any invasive GI workup. Plan ? Daily CBC monitoring ? Transfuse blood if hemoglobin below 7 Hospital Maintenance: FEN: Low carb consistent diet DVT ppx: SCDs, no chemical prophylaxis due to severe anemia of unknown source possible bleeding GI ppx: Protonix IV lines: PIV [place]: None Code status: Full code Dispo: Pending PT eval for discharge to SNF. Versus home health PT - Patient's plan and care discussed with my attending, Dr. Zaira Amato MD Internal Medicine PGY-2 Attending Provider Attestation/Addendum Patient seen and examined with resident physician Dr. Kolb. Note reviewed, agree with findings and recommendations.
[2024-12-05] MEDS: HYDROcodone/APAP 5/325 TABLET 1 TAB PO (19:54)
--- NOTE | 2024-12-05 19:55 | PD.IMPROG ---
Documentation for date of: 12/05/24 Subjective Subjective Interval history: Hemoglobin hematocrit 8.5 and 26.1 In the process of evaluation by general surgery Still refusing any invasive GI workup Exam Vital Signs Temp Pulse Resp BP Pulse Ox O2 Del Method O2 Flow Rate 97.1 F 85 18 129/77 99 Room Air 6 12/05/24 15:55 12/05/24 16:00 12/05/24 15:55 12/05/24 15:55 12/05/24 15:55 12/05/24 12:00 12/04/24 10:12 Objective Labs 12/05/24 04:32 12/05/24 04:32 Labs: Laboratory Results - last 24 hr 12/05/24 04:32 WBC 12.5 H RBC 3.01 L Hgb 8.5 L Hct 26.1 L MCV 87 MCH 28.2 MCHC 32.6 RDW Std Deviation 47.6 H Plt Count 295 D Neut % (Auto) 73 Lymph % (Auto) 13 [place] % (Auto) 10 Eos % (Auto) 2 Baso % (Auto) 1 Neut # (Auto) 9.2 H Lymph # (Auto) 1.7 [place] # (Auto) 1.3 H Eos # (Auto) 0.3 Baso # (Auto) 0.1 Immature Gran # (Auto) 0.06 H Absolute Nucleated RBC 0.00 Immature Gran % 1 H Nucleated RBC % 0 Sodium 141 Potassium 3.6 Chloride 108 H Carbon Dioxide 22.9 Anion Gap 10 BUN 35 H Creatinine 1.7 H Estim Creat Clear Calc 40.1 L eGFR 45 L BUN/Creatinine Ratio 21 H Glucose 73 L D Calculated Osmolality 288 Calcium 8.5 Corrected Calcium 8.8 Total Bilirubin 0.2 L AST 11 ALT 7 L Alkaline Phosphatase 65 Total Protein 6.9 Albumin 3.6 Globulin 3.3 Albumin/Globulin Ratio 1.1 L Impressions Impression: # Posthemorrhagic anemia Continue to monitor CBC # PAD with gangrene of the right fifth toe Being followed by general surgery Assessment & Plan A&P Narrative # Anemia multifactorial Stool for occult blood Iron panel B12 Folate level Reticulocyte count patient most likely will need invasive GI workup We will follow the patient Patient is very much reluctant to have any invasive GI workup at the moment I will patiently work with him Other medical problems include # XIOMARA BUN 57 creatinine 1.7 # Peripheral vascular disease status post left BKA requiring right BKA Gangrene right fifth toe # Peripheral vascular disease # systolic congestive heart failure # Essential hypertension # Hyperlipidemia # Diabetes mellitus type 2 # Status post left BKA Thank you very much for the opportunity to participate in the care of this patient Time Spent With Patient Time: Total time spent is greater than 50% in coordination of care (as documented) at patient's floor/unit and/or counseling patient:
[2024-12-05] MEDS: ATORVASTATIN CALCIUM 20 MG TABLET 40 MG PO (21:51)
[2024-12-06] VITALS (7 sets, daily range): BP systolic 123–147; BP diastolic 65–86; PULSE 70–97; RESP 18–19; TEMP 36.2–36.3; O2SAT 98–99; BMI 25.6; BMI 14.0
[2024-12-06] MEDS: PIPER/TAZO INJ 3.375 GM in SODIUM CHLORIDE 0.9% (P) 100 ML IV ×3 (05:13→21:24)
[2024-12-06] MEDS: CALCIUM CARBONATE 600 MG TABLET PO ×3 (05:13→21:24)
[2024-12-06 06:35] LABS: Basophils # (Auto) 0.1 Thou/mm3 (0.0-0.2); Basophils % (Auto) 1 % (0-2.5); Eosinophils # (Auto) 0.3 Thou/mm3 (0.0-0.5); Eosinophils % (Auto) 3 % (0-10); Hematocrit 24.1 % (41.0-53.0); Immature Granulocytes % (Auto) 1 % (0-0); Immature Granulocytes Auto 0.08 Thou/mm3 (0.00-0.00); Lymphocytes # (Auto) 2.1 Thou/mm3 (1.0-4.8); Lymphocytes % (Auto) 19 % (10-50); Mean Corpuscular HGB Conc 32.4 g/dl (31.0-37.0); Mean Corpuscular Hemoglobin 28.3 pg (25.0-35.0); Mean Corpuscular Volume 87 fL (80-100); Monocytes # (Auto) 1.1 Thou/mm3 (0.0-0.8); Monocytes % (Auto) 10 % (0-12); Neutrophils # (Auto) 7.1 Thou/mm3 (1.8-7.7); Neutrophils % (Auto) 66 % (37-80); Nucleated Red Blood Cell % 0 /100 WBC (0); Platelet Count 279 Thou/mm3 (140-440); Red Blood Count 2.76 Miln/mm3 (4.50-5.90); White Blood Count 10.7 Thou/mm3 (3.8-10.6)
[2024-12-06 06:45] LABS: Hemoglobin 7.8 g/dL (13.5-16.0)
[2024-12-06 06:59] LABS: Alanine Aminotransferase < 7 U/L (10-49); Albumin, Serum 3.4 gm/dL (3.4-4.8); Albumin/Globulin Ratio 1.2 (1.2-2.2); Alkaline Phosphatase 59 U/L (46-116); Anion Gap 9 (7-16); Aspartate Amino Transferase 10 U/L (0-34); BUN/Creatinine Ratio 18 Ratio (12-20); Bilirubin,Total 0.2 mg/dL (0.3-1.2); Blood Urea Nitrogen 33 mg/dL (9-23); Calcium 8.2 mg/dL (8.3-10.6); Calcium (Corrected) 8.7 mg/dL (8.5-10.1); Carbon Dioxide 21.6 mMol/L (20.0-31.0); Chloride 109 mMol/L (98-107); Creatinine (Component) 1.8 mg/dL (0.6-1.3); Estimated Creatinine Clearance 37.9 mL/min (>60); Globulin 2.9 gm/dL (2.3-3.5); Glucose 87 mg/dL (74-106); Osmolality,Calculated 285 (275-295); Potassium 3.5 mMol/L (3.4-5.1); Sodium 140 mMol/L (136-145); Total Protein 6.3 gm/dL (5.7-8.2); eGFR 42 See Note
[2024-12-06] MEDS: INSULIN HUM REGULAR 1 UNIT/0.01 ML (PER UNIT) SC ×3 (07:43→17:22)
[2024-12-06] MEDS: INSULIN GLARGINE (Lantus) 5 UNIT/0.05 ML (PER 5 UNITS) 10 UNIT SC ×2 (07:43→17:21)
--- NOTE | 2024-12-06 08:02 | PD.NEPHPROG ---
Documentation for date of: 12/06/24 Subjective Subjective Interval history: Mr. Gibson is a 64-year-old male with a past medical history of severe peripheral arterial occlusive disease, hypertension, hypercholesterolemia, diabetes mellitus type 2, recent congestive heart failure with ejection fraction 25% , who had a [id number] amputation on 09/29/2024, discharged to [facility] 10/06/2024 for rehabilitation was noted to have right fifth toe gangrene, right heel decubiti (seen by medical sales specialist at the rehab and he recommended for him to go to the emergency department) presented to the emergency department for the evaluation of the right fifth toe gangrene Patient admitted for further evaluation. Surgical consultation requested. In the emergency department WBC 14.2, hemoglobin 7.4, platelets 323. Coagulation profile normal, sodium 136, potassium 3.9, BUN 56, creatinine 1.7, A1c 7.5, LFTs normal, albumin 4.0, Pro-Corey negative x-ray showed no cortical thinning destruction. Doppler ultrasound showed severe clinically vascular disease in the right lower extremity. Patient admitted to med telemetry floor. Antibiotics were initiated. Gentle IV fluids initiated for XIOMARA. 12/03/2024 patient currently seen in medical floor. Right fifth toe gangrene. Right third heel decubitus noted. Seen by Dr. Vivar-recommended a right foot amputation due to severe peripheral vascular disease. Patient will reluctantly requested a second opinion. Dr Lobato has seen patient. I did talk to him-agree with Dr. Vivar recommendations although due to patient being very reluctant agreed for right fifth toe amputation and a right heel Debridement along with wound care management. Noted a GI evaluation and patient being very reluctant for GI workup. IV iron, folic acid ordered. Creatinine better at 1.5. Blood pressure 123/78, heart rate 80. Blood sugar 262. 12/06 patient currently seen in medical floor. Status post right fifth toe amputation for gangrene. Also has a right heel decubitus debridement. Dr. Dr. Hammond on the case. Patient also noted to have anemia. Seen by GI-recommended EGD/colonoscopy and patient declined.Blood pressure 147/78, heart rate 85. WBC 10.7, hemoglobin 7.8,Platelets 279, sodium 140, potassium 3.5, BUN 33, creatinine 1.8, glucose 87, LFTs normal, albumin 3.4 chest x-ray showed mild vascular congestion. Patient currently on Zosyn. Discharge planning pending. Apparently he has some problems with his insurance. Review of Systems Review of Systems Narrative Review of Systems: CONSTITUTIONAL: Patient denies any fever, chills. Complaining of fatigue HEENT: Denies any visual disturbances or hearing problems. CARDIOVASCULAR: Patient denies any chest pain, shortness of breath, swelling in the lower extremities. PULMONARY: Patient denies any shortness of breath, cough. GASTROINTESTINAL: Patient denies any abdominal pain, constipation, nausea, vomiting, diarrhea. GENITOURINARY: Patient denies any urinary symptoms of burning or frequency or hematuria, denies any form in the urine. SKIN see HPI MUSCULOSKELETAL: Left BKA NEUROLOGICAL: Denies any neurological problems of strokes, seizures or confusion. Denies any memory problems. PSYCHIATRIC: Admits depression from current situation Exam Vital Signs Temp Pulse Resp BP Pulse Ox O2 Del Method O2 Flow Rate 36.2 C 86 18 147/78 H 99 Room Air 6 12/06/24 16:12/06/24 16:12/06/24 16:12/06/24 16:12/06/24 16:12/06/24 16:12/04/24 10:12 Narrative Exam GENERAL APPEARANCE: Patient seems to be comfortable, adequately hydrated and nourished. HEENT: EOMI, PERRLA NECK: Neck supple, no JVD or bruit CARDIOVASCULAR: Heart regular, no murmurs LUNGS/CHEST: Chest clear to auscultation. No rales, rhonchi, wheezing ABDOMEN: Soft, nontender, nondistended. No masses. Normal bowel sounds. EXTREMITIES: No edema, clubbing or cyanosis. SKIN: Right fifth toe amputation. Right heel decubitus--debridement. Foot wrapped MUSCULOSKELETAL: In bed, Left BKA NEUROLOGICAL : No neurological deficits. seems sad Objective Labs 12/06/24 05:26 12/06/24 05:26 Labs: Laboratory Results - last 24 hr 12/06/24 05:26 WBC 10.7 H RBC 2.76 L Hgb 7.8 L Hct 24.1 L MCV 87 MCH 28.3 MCHC 32.4 RDW Std Deviation 48.0 H Plt Count 279 Neut % (Auto) 66 Lymph % (Auto) 19 [place] % (Auto) 10 Eos % (Auto) 3 Baso % (Auto) 1 Neut # (Auto) 7.1 Lymph # (Auto) 2.1 [place] # (Auto) 1.1 H Eos # (Auto) 0.3 Baso # (Auto) 0.1 Immature Gran # (Auto) 0.08 H Absolute Nucleated RBC 0.00 Immature Gran % 1 H Nucleated RBC % 0 Sodium 140 Potassium 3.5 Chloride 109 H Carbon Dioxide 21.6 Anion Gap 9 BUN 33 H Creatinine 1.8 H Estim Creat Clear Calc 37.9 L eGFR 42 L BUN/Creatinine Ratio 18 Glucose 87 Calculated Osmolality 285 Calcium 8.2 L Corrected Calcium 8.7 Total Bilirubin 0.2 L AST 10 ALT < 7 L Alkaline Phosphatase 59 Total Protein 6.3 Albumin 3.4 Globulin 2.9 Albumin/Globulin Ratio 1.2 Assessment & Plan Assessment and plan (1) Atherosclerosis of [place] artery of right lower extremity with gangrene: Status: Acute (2) Gangrene of toe of right foot: Status: Acute Assessment and plan: Patient noted to have gangrene of the right fifth toe. Dr Lobato did fifth toe amputation. Patient currently on Zosyn. Will need vascular intervention as an outpatient and wound care center consultation. (3) Acute kidney injury: Status: Acute Assessment and plan: Added IV fluids. Suspect underlying CKD from diabetic nephropathy. (4) Atherosclerosis of artery of extremity with gangrene: Status: Acute Assessment and plan: Severe peripheral vascular disease, underlying longstanding diabetes. 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 (5) Diabetes: Status: Acute Assessment and plan: Accu-Cheks, sliding scale, consistent carb low (6) Anemia: Status: Acute Assessment and plan: No active bleed currently. Requested GI consultation. Units blood transfusion ordered. Noted patient declined GI workup. IV iron will be given. Iron stores low add folate (7) Hypertension: Status: Acute Assessment and plan: Blood pressure on the lower side. (8) CHF (congestive heart failure): Status: Acute Assessment and plan: Compensated. Chest x-ray normal Additional Assessment & Plan Additional Plan: CODE STATUS full code DVT prophylaxis- scd. Cannot do heparin due to severe anemia GI prophylaxis-Protonix Disposition [facility] vs snf
--- NOTE | 2024-12-06 08:51 | PC.SS ---
Follow up note: SS met with patient to discuss final d/c plans. Patient cannot return to [facility] due to him owing a remaining balance. SS spoke to Ilana @ [employer] and she states patient only has coverage for acute rehab. However, patient may not qualify for this. SS inquired about a PT evaluation. PT worked with patient and stated patient could not ambulate. SS will send for acute rehab as well as SNF. Patient is considering home with home health and hiring a private careprovider. He also applied for [facility] but application has not been processed due to [employer] needing more clarification on income. Ilana @ [employer], is aware of patient coverage and financials. She states patient's company had paid up to 10K towards his SNF rehab. [employer] just had not filed claim yet. Patient is aware he will need to pay out of pocket for any SNF stay. Physician states patient is not medically ready and may need to return to surgery and may need a vascular surgeon consult. D/c pending and d/c plan pending.
[2024-12-06] MEDS: GABAPENTIN 100 MG CAPSULE PO ×2 (09:19→21:24)
[2024-12-06] MEDS: ASCORBIC ACID 250 MG TABLET 500 MG PO (09:19)
[2024-12-06] MEDS: PANTOPRAZOLE 40 MG TABLET PO (09:19)
[2024-12-06] MEDS: FOLIC ACID 1 MG TABLET PO (09:20)
[2024-12-06] MEDS: LACTOBACILLUS RHAMNOSUS 1 CAP PO (09:20)
[2024-12-06] MEDS: ZINC SULFATE 220 MG CAPSULE PO (09:20)
--- NOTE | 2024-12-06 11:40 | PC.SS ---
SS met with pt and provided him with 24 hour home care form and the Community [facility] List upon his request. Pt is seeking caregivers to help care for him at home. SS scott spoken to Sylvia from [facility] who explained they are unable to accept pt back. Pt is aware. SS sent inquiry outside the area, [place], [place], [place], and [place] using [facility]. Pt explained he is still able to pay privately if his health insurance does not cover.
--- NOTE | 2024-12-06 18:51 | ESPR_ITS ---
Documentation for date of: 12/06/24 Subjective Subjective Interval history: Patient evaluated Hemoglobin hematocrit 7.8 and 24.1 No signs of any active bleeding Recovering from the right foot fifth toe amputation Exam Vital Signs Temp Pulse Resp BP Pulse Ox O2 Del Method O2 Flow Rate 97.1 F 86 18 147/78 H 99 Room Air 6 12/06/24 16:00 12/06/24 16:00 12/06/24 16:00 12/06/24 16:00 12/06/24 16:00 12/06/24 16:00 12/04/24 10:12 Constitutional Comments: Alert oriented Routine Abdominal Exam Comments: Soft nontender Objective Labs 12/06/24 05:26 12/06/24 05:26 Labs: Laboratory Results - last 24 hr 12/06/24 05:26 WBC 10.7 H RBC 2.76 L Hgb 7.8 L Hct 24.1 L MCV 87 MCH 28.3 MCHC 32.4 RDW Std Deviation 48.0 H Plt Count 279 Neut % (Auto) 66 Lymph % (Auto) 19 [place] % (Auto) 10 Eos % (Auto) 3 Baso % (Auto) 1 Neut # (Auto) 7.1 Lymph # (Auto) 2.1 [place] # (Auto) 1.1 H Eos # (Auto) 0.3 Baso # (Auto) 0.1 Immature Gran # (Auto) 0.08 H Absolute Nucleated RBC 0.00 Immature Gran % 1 H Nucleated RBC % 0 Sodium 140 Potassium 3.5 Chloride 109 H Carbon Dioxide 21.6 Anion Gap 9 BUN 33 H Creatinine 1.8 H Estim Creat Clear Calc 37.9 L eGFR 42 L BUN/Creatinine Ratio 18 Glucose 87 Calculated Osmolality 285 Calcium 8.2 L Corrected Calcium 8.7 Total Bilirubin 0.2 L AST 10 ALT < 7 L Alkaline Phosphatase 59 Total Protein 6.3 Albumin 3.4 Globulin 2.9 Albumin/Globulin Ratio 1.2 Impressions Impression: # Posthemorrhagic anemia # Peripheral vascular disease right lower extremity with amputation of the gangrenous ulcer. Continue current management Assessment & Plan A&P Narrative # Anemia multifactorial Stool for occult blood Iron panel B12 Folate level Reticulocyte count patient most likely will need invasive GI workup We will follow the patient Patient is very much reluctant to have any invasive GI workup at the moment I will patiently work with him Other medical problems include # XIOMARA BUN 57 creatinine 1.7 # Peripheral vascular disease status post left BKA requiring right BKA Gangrene right fifth toe # Peripheral vascular disease # systolic congestive heart failure # Essential hypertension # Hyperlipidemia # Diabetes mellitus type 2 # Status post left BKA Thank you very much for the opportunity to participate in the care of this patient Time Spent With Patient Time: Total time spent is greater than 50% in coordination of care (as documented) at patient's floor/unit and/or counseling patient:
[2024-12-06] MEDS: HYDROcodone/APAP 5/325 TABLET 1 TAB PO (19:27)
[2024-12-06] MEDS: ATORVASTATIN CALCIUM 20 MG TABLET 40 MG PO (21:24)
[2024-12-07] VITALS: BP 133/81; PULSE 80; PULSE 94; RESP 19; TEMP 36.5; O2SAT 98
[2024-12-07 04:00] VITALS: BP 135/74; PULSE 84; PULSE 90; RESP 19; TEMP 36.6; O2SAT 98
[2024-12-07] MEDS: PIPER/TAZO INJ 3.375 GM in SODIUM CHLORIDE 0.9% (P) 100 ML IV ×2 (05:48→13:28)
[2024-12-07] MEDS: CALCIUM CARBONATE 600 MG TABLET PO ×2 (05:48→13:28)
[2024-12-07 05:57] LABS: Basophils # (Auto) 0.1 Thou/mm3 (0.0-0.2); Basophils % (Auto) 1 % (0-2.5); Eosinophils # (Auto) 0.4 Thou/mm3 (0.0-0.5); Eosinophils % (Auto) 3 % (0-10); Hematocrit 23.8 % (41.0-53.0); Immature Granulocytes % (Auto) 1 % (0-0); Immature Granulocytes Auto 0.09 Thou/mm3 (0.00-0.00); Lymphocytes # (Auto) 1.9 Thou/mm3 (1.0-4.8); Lymphocytes % (Auto) 16 % (10-50); Mean Corpuscular HGB Conc 32.4 g/dl (31.0-37.0); Mean Corpuscular Hemoglobin 28.1 pg (25.0-35.0); Mean Corpuscular Volume 87 fL (80-100); Monocytes # (Auto) 1.4 Thou/mm3 (0.0-0.8); Monocytes % (Auto) 12 % (0-12); Neutrophils # (Auto) 8.2 Thou/mm3 (1.8-7.7); Neutrophils % (Auto) 68 % (37-80); Nucleated Red Blood Cell % 0 /100 WBC (0); Platelet Count 313 Thou/mm3 (140-440); RDW Standard Deviation 48.1 fL (35.1-43.9); Red Blood Count 2.74 Miln/mm3 (4.50-5.90)
[2024-12-07 06:08] LABS: Hemoglobin 7.7 g/dL (13.5-16.0)
[2024-12-07 06:34] LABS: Alanine Aminotransferase < 7 U/L (10-49); Albumin, Serum 3.4 gm/dL (3.4-4.8); Albumin/Globulin Ratio 1.2 (1.2-2.2); Alkaline Phosphatase 62 U/L (46-116); Anion Gap 10 (7-16); Aspartate Amino Transferase 10 U/L (0-34); BUN/Creatinine Ratio 17 Ratio (12-20); Bilirubin,Total 0.2 mg/dL (0.3-1.2); Blood Urea Nitrogen 30 mg/dL (9-23); Calcium 8.3 mg/dL (8.3-10.6); Calcium (Corrected) 8.8 mg/dL (8.5-10.1); Carbon Dioxide 21.4 mMol/L (20.0-31.0); Chloride 108 mMol/L (98-107); Creatinine (Component) 1.8 mg/dL (0.6-1.3); Estimated Creatinine Clearance 37.9 mL/min (>60); Globulin 2.9 gm/dL (2.3-3.5); Glucose 102 mg/dL (74-106); Osmolality,Calculated 283 (275-295); Potassium 3.4 mMol/L (3.4-5.1); Sodium 139 mMol/L (136-145); Total Protein 6.3 gm/dL (5.7-8.2); eGFR 42 See Note
[2024-12-07 08:00] VITALS: BP 130/75; PULSE 76; RESP 17; TEMP 36.5; O2SAT 97
[2024-12-07] MEDS: INSULIN GLARGINE (Lantus) 5 UNIT/0.05 ML (PER 5 UNITS) 10 UNIT SC (08:26)
[2024-12-07] MEDS: ASCORBIC ACID 250 MG TABLET 500 MG PO (08:27)
[2024-12-07] MEDS: FOLIC ACID 1 MG TABLET PO (08:27)
[2024-12-07] MEDS: ZINC SULFATE 220 MG CAPSULE PO (08:27)
[2024-12-07] MEDS: LACTOBACILLUS RHAMNOSUS 1 CAP PO (08:28)
[2024-12-07] MEDS: PANTOPRAZOLE 40 MG TABLET PO (08:28)
[2024-12-07] MEDS: GABAPENTIN 100 MG CAPSULE PO (08:30)
[2024-12-07] MEDS: POTASSIUM CHLORIDE 10% 20 MEQ/15 ML UDC 40 MEQ PO (11:19)
[2024-12-07] MEDS: INSULIN HUM REGULAR 1 UNIT/0.01 ML (PER UNIT) SC (11:26)
[2024-12-07 11:50] VITALS: BP 150/84; PULSE 79; RESP 16; TEMP 36.1; O2SAT 99
[2024-12-07 12:00] VITALS: PULSE 79
--- NOTE | 2024-12-07 12:15 | PC.SS ---
Addendum entered by Carmen Rosen 12/07/24 14:34: SS met with patient at bedside and patient verbalized he already contacted Sosa from [facility] and made the payment. SS contacted Janet from [facility] and she informed SS they are able to transport patient within 2-3 hrs. SS submit PASSR. SS will stand by for further needs. Addendum entered by Carmen Rosen 12/07/24 12:22: SS was contacted by Sosa from [facility] and she informed SS that patient would have to pay $1960 before discharging to [facility]. Original Note: GLENNA Perdomo and Carmen ODELL met with patient at bedside to discuss discharge plan. SS inquired about private pay to SNF. Patient refused SNF and informed SS that it was to much money to pay. SS provided patient with [facility] services contact number. Patient informed SS that he would be willing to pay SNF for one week. Sosa from [facility] informed SS it would be $280 a week without PT. SS contacted Sosa from [facility] and she informed SS she would have to speak to her Molded Goods Operator first before making a decision. SS will follow up with patient in a few hrs.
--- NOTE | 2024-12-07 12:57 | ESPR_ITS ---
Documentation for date of: 12/07/24 Subjective Subjective Interval history: Hemoglobin hematocrit 7.7 and 23.0 Staying in the same range Exam Vital Signs Temp Pulse Resp BP Pulse Ox O2 Del Method O2 Flow Rate 97 F 79 16 150/84 H 99 Room Air 6 12/07/24 11:50 12/07/24 11:50 12/07/24 11:50 12/07/24 11:50 12/07/24 11:50 12/07/24 11:50 12/07/24 04:00 Objective Labs 12/07/24 05:05 12/07/24 05:05 Labs: Laboratory Results - last 24 hr 12/07/24 05:05 WBC 12.0 H RBC 2.74 L Hgb 7.7 L Hct 23.8 L MCV 87 MCH 28.1 MCHC 32.4 RDW Std Deviation 48.1 H Plt Count 313 D Neut % (Auto) 68 Lymph % (Auto) 16 [place] % (Auto) 12 Eos % (Auto) 3 Baso % (Auto) 1 Neut # (Auto) 8.2 H Lymph # (Auto) 1.9 [place] # (Auto) 1.4 H Eos # (Auto) 0.4 Baso # (Auto) 0.1 Immature Gran # (Auto) 0.09 H Absolute Nucleated RBC 0.00 Immature Gran % 1 H Nucleated RBC % 0 Sodium 139 Potassium 3.4 Chloride 108 H Carbon Dioxide 21.4 Anion Gap 10 BUN 30 H Creatinine 1.8 H Estim Creat Clear Calc 37.9 L eGFR 42 L BUN/Creatinine Ratio 17 Glucose 102 Calculated Osmolality 283 Calcium 8.3 Corrected Calcium 8.8 Total Bilirubin 0.2 L AST 10 ALT < 7 L Alkaline Phosphatase 62 Total Protein 6.3 Albumin 3.4 Globulin 2.9 Albumin/Globulin Ratio 1.2 Impressions Impression: # Acute posthemorrhagic anemia hemoglobin 7.7 No further drop # Peripheral vascular disease right lower extremity requiring amputation of the right foot fifth toe Continue to monitor CBC Assessment & Plan A&P Narrative # Anemia multifactorial Stool for occult blood Iron panel B12 Folate level Reticulocyte count patient most likely will need invasive GI workup We will follow the patient Patient is very much reluctant to have any invasive GI workup at the moment I will patiently work with him Other medical problems include # XIOMARA BUN 57 creatinine 1.7 # Peripheral vascular disease status post left BKA requiring right BKA Gangrene right fifth toe # Peripheral vascular disease # systolic congestive heart failure # Essential hypertension # Hyperlipidemia # Diabetes mellitus type 2 # Status post left BKA Thank you very much for the opportunity to participate in the care of this patient Time Spent With Patient Time: Total time spent is greater than 50% in coordination of care (as documented) at patient's floor/unit and/or counseling patient:
--- NOTE | 2024-12-07 14:03 | PD.RESDS ---
Planned Discharge Date 12/07/24 DS: Providers Provider Date of admission: 12/01/24 21:46 Primary care physician: Rickie Meneses MD Admitting Provider: Rickie Meneses MD Attending Provider on Admission: Rickie Meneses MD Consults: 12/01/24 21:31 Consult to General Surgery Stat Comment: Consulting Provider: Hong Vivar 12/02/24 08:33 Consult to Gastroenterology Routine Comment: anemia Consulting Provider: Jarad Griffin 12/02/24 10:40 Referral Nutritional Services Routine Comment: Instructions: Wounds Referral Wound Care Routine Comment: Instructions: RLE wounds 12/02/24 14:23 Consult to General Surgery Stat Comment: Consulting Provider: Genesis Lobato Instructions: Second opinion regarding gangrenous right 5th toe 12/05/24 09:35 Referral Physical Therapy Stat Comment: Physician Instructions: 12/06/24 06:47 Referral Discharge Planning Routine Comment: rehab vs HHC Attending Provider on DC: Kennedi Amato MD Discharging Provider: Kennedi Amato MD DS: Diagnosis Problem List Completed Was Problem List Reviewed/Reconciled?: Yes Hospital Course Hospital Course Hospital course: A 64-year-old male patient with past medical history of severe peripheral artery disease, hypertension, diabetes mellitus, hyperlipidemia, CHF ejection fraction of 25%, DKA in August 2024, came from [facility] that he was noted to have right fifth toe discoloration which turns out to be gangrene and also was found to have necrotic ulcers on the right heel. Presentation his WBC was 14.2, Hb of 7.4, x-ray showed no cortical bone destruction, consultation to the general surgeon was done in which she recommended to do amputation below the knee however the patient wanted to wait for some more time at the ulcers may heal. Doppler ultrasound with arterial system of the lower limb was done and showed severe peripheral artery disease. However there was no vascular surgeon on-call. Patient agreed to have amputation of the of the fifth toe. And to do vascular consultation as outpatient. During his stay patient was noticed to have downtrending hemoglobin, GI consultation to Dr. Griffin was ordered, however, patient denied any invasive GI procedures including endoscopies. Amputation of the fifth right toe was done and the patient was cleared for discharge to a custodial facility after physical therapy evaluation. Discharging diagnosis #gangrene of the fifth toe #Right heel ulcers #Severe PAD #CKD #History of diabetes mellitus #History of anemia #History of CHF #History of hypertension #History of hyperlipidemia #History of pulmonary embolism - Patient's plan and care discussed with my attending, Dr. Zaira Amato MD Internal Medicine PGY-2 Status at Discharge Cognitive/behavioral status at discharge: stable Functional status at discharge: wheelchair bound Overall status at discharge: patient is progressing back to baseline Time Spent with Patient Time attestation: Total time spent providing and/or coordinating discharge services: Time spent: Greater than 30 minutes Exam Vital Signs Temp Pulse Resp BP Pulse Ox O2 Del Method O2 Flow Rate 97 F 79 16 150/84 H 99 Room Air 6 12/07/24 11:50 12/07/24 11:50 12/07/24 11:50 12/07/24 11:50 12/07/24 11:50 12/07/24 11:50 12/07/24 04:00 Narrative Exam GEN: AOx3, able to speak full sentences HEENT: NC/AC, oral mucosa moist, neck supple CVS: RRR, S1-S2 present, no murmurs appreciated RESP: CTAB GI: soft,non distended, non tender, NBS MSK: Right fifth toe amputation newly dressed, left BKA, able to move all 4 limbs. 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 Discharge Plan Plan Patient Disposition: er Skilled [facility] (SNF) Patient condition on transfer: Stable Care Plan Goals: Follow-up with your primary care physician within 1 week from discharge Follow-up with the vascular surgeon within 1 week from discharge Follow-up with the general surgeon Dr. Hammond within 1 week from discharge Follow wound care instructions Continue medications as prescribed In case of worsening of your symptoms please return to the ED as soon as possible Prescriptions/Referrals Prescriptions/Med Rec: New folic acid 1 mg Tablet 1 mg PO QDAY 20 Days Qty: 20 0RF gabapentin 100 mg Capsule 100 mg PO BID 15 Days Qty: 30 0RF atorvastatin 40 mg tablet 40 mg PO QPM 15 Days Qty: 15 0RF amoxicillin-pot clavulanate 875-125 mg tablet 1 tab PO BID 10 Days Qty: 20 0RF Continued hydrocodone-acetaminophen 5-325 mg Tablet 1 tab PO Q12HR PRN (Reason: Moderate Pain (Scale Score 5-6)) alprazolam 0.25 mg Tablet 0.25 mg PO Q12HR PRN (Reason: Anxiety) Rx Instructions: for 14 days, 10/06-10/20 magnesium hydroxide [Milk of Magnesia] 400 mg/5 mL Suspension 30 ml PO Q72H PRN (Reason: Constipation) ascorbic acid (vitamin C) 500 mg Tablet 500 mg PO QDAY bisacodyl [Dulcolax (bisacodyl)] 10 mg Suppository 10 mg MT QDAY PRN (Reason: Constipation) Fleet Enema 19-7 gram/118 mL Enema 118 ml MT Q72H PRN (Reason: Constipation) zinc 10 mg Tablet 10 mg PO QDAY Rx Instructions: for 14 days, 10/11-10/25 Probiotic 3 billion cell Capsule 3,000 mmu cells PO QDAY Rx Instructions: administer with a meal calcium carbonate 600 mg calcium (1,500 mg) tablet 600 mg PO TID metformin 500 mg tablet 500 mg PO BIDWMEAL Qty: 60 0RF Discontinued gabapentin 100 mg Tablet 100 mg PO BID guaifenesin 50 mg/5 mL Liquid 200 mg PO Q4H PRN (Reason: Secretions) atorvastatin 20 mg Tablet 40 mg PO HS Qty: 1 0RF Referrals: Rickie Meneses MD [Primary Care Provider] - Patient/Caregiver Discharge Instructions Discharge Activity: as per physical therapy and activity as tolerated Other Discharge Activity Instructions:: Wound care: 1) Right knee: cleanse with wound cleanser, pat dry. Cover with allyven dressing daily 2) Right medial and lateral ankle, Right great-3rd toe. Right 5th toe amputation site. Right heel: cleanse with wound cleanser, pat dry, apply adaptic over wound bed. Layer with dry gauze and secure with kerlix roll daily and PRN for falling off or soiling. Negative heel pressure at all times. Education Materials: Nutrition for Wound Healing, PAD, PAD Dc, Amputation What to Expect After, Preventing Surgical Site Infections Print Language: Cuban Stand Alone Forms: Janis Award Info., Patient Portal Info Letter Discharge Order Discharge Orders: Discharge (Routine); Ordered 12/07/24 Ordered By: Kennedi Amato Quality Discharge Quality Measures VTE prophylaxis Attestestation MD Attestation Patient seen and examined with resident physician Dr. Kolb. Note reviewed, agree with findings and recommendations. Patient will be discharged to rehab on antibiotics. He is going to follow-up with vascular surgery this Thursday will follow-up with wound care center
--- NOTE | 2024-12-07 15:53 | PC.SS ---
SS follow up note; SS was contacted by Janet from [facility] and she informed SS that they will be transporting patient at 5PM. SS updated patient's nurse Renae.
[2024-12-07 16:00] VITALS: BP 136/79; PULSE 78; PULSE 85; RESP 17; TEMP 36.3; O2SAT 99
== END 2024-12-07 17:17 | disposition skilled nursing facility (03) | DRG 256 ==
LOC: SERX 21:37 → SERHOLD 21:49 → S3SX 12-02 00:23
PROVIDERS: Nurse Practitioner Primary Care; Specialist; Surgery; Admitting Provider Internal Medicine; Emergency Provider Emergency Medicine; PCP Internal Medicine; Visit Provider Internal Medicine
PROC: 0Y6X0Z1 Detachment at Right 5th Toe, High, Open Approach (ICD-10-PCS; CPT 28820; principal; 2024-12-04 09:00)
DX: E11.52 Type 2 diabetes mellitus with diabetic peripheral angiopathy with gangrene (principal); D62 Acute posthemorrhagic anemia; I70.261 Atherosclerosis of native arteries of extremities with gangrene, right leg; N17.9 Acute kidney failure, unspecified; L97.411 Non-pressure chronic ulcer of right heel and midfoot limited to breakdown of skin; I50.22 Chronic systolic (congestive) heart failure; L97.819 Non-pressure chronic ulcer of other part of right lower leg with unspecified severity; E11.621 Type 2 diabetes mellitus with foot ulcer; I11.0 Hypertensive heart disease with heart failure; E78.00 Pure hypercholesterolemia, unspecified; G89.29 Other chronic pain; M54.9 Dorsalgia, unspecified; E11.22 Type 2 diabetes mellitus with diabetic chronic kidney disease; N18.9 Chronic kidney disease, unspecified; Z86.711 Personal history of pulmonary embolism; Z87.891 Personal history of nicotine dependence; Z89.512 Acquired absence of left leg below knee; Z79.84 Long term (current) use of oral hypoglycemic drugs; Z79.899 Other long term (current) drug therapy
CPT/HCPCS: 36415; 71046; 73660; 80053; 80061; 82270; 82607; 82746; 83036; 83540; 83550; 83605; 84145; 85014; 85018; 85025; 85046; 85610; 85652; 86140; 86850; 86900; 86901; 86923; 87040; 87081; 93225; 93926; 96365; 96367; 97162; 99285; A4217; A4649; J0696; J1815; J1940; J2250; J2543; J2704; J2795; J7030; J7050; P9016; Q0139; Q5105; A9270

== ENCOUNTER → 2024-12-13 | Outpatient (CLI) | payer BC, SELFPAY ==
--- NOTE | 2024-12-13 14:00 | XR_ITS ---
Examination: CTA abdominal aorta iliofemoral runoff. 2-D sagittal coronal reconstructions. 3-D reconstructions, vascular December 13, 2024 1444 hours INDICATIONS: Diagnosis atherosclerosis of [place] arteries of the extremities, right foot pain, ultrasound arterial duplex lower extremities December 01, 2024 significant right lower extremity peripheral obstructive arterial disease Technique: Multiple CTA images of the abdominal aorta iliofemoral runoff arterial vessels, 2.0 mm slice thickness, post intravenous administration 70 cc [id number] 2-D sagittal coronal reconstructions. 3-D reconstructions, vascular 3-D postprocessing, including vascular maximum intensity projection images, 3-D volume rendering Low dose protocols were performed. One or more of the following dose reduction techniques were used; automated exposure control, adjustment of the mA and/or KV according to patient size, use of iterative reconstruction technique. Findings: Mild to moderate bilateral pleural effusions Mild atelectasis in the lower lung zones No interval liver or splenic lesions Contracted gallbladder No pancreatic or adrenal mass No hydronephrosis Lateral 30 mm left renal cyst Perinephric stranding Abundant stool in the cecum Normal appendix No bowel obstruction No diverticulitis Minimal thickening urinary bladder wall up to 4 mm Transverse prostate dimension 4.4 cm Heavy abdominal aortic calcification No significant stenoses origins celiac superior mesenteric arteries or renal arteries Heavy calcification common iliac arteries 40% stenosis proximal left common iliac artery Iliac arteries are patent 80% plus stenosis left common femoral artery Occlusion proximal right superficial femoral artery over a distance of 40 mm Reconstitution mid and distal superficial femoral artery with multiple high-grade stenoses greater than 90% No filling of the right superficial femoral artery in its midportion Reconstitution distal right femoral artery with multiple high-grade stenoses Right popliteal artery is severely attenuated Very heavy calcification of the right anterior tibial posterior tibial arteries with multiple occlusions and no significant filling distally Heavy calcification left superficial femoral artery with 60% short segment stenosis in its midportion Left popliteal artery and distal left superficial femoral artery are severely attenuated Heavy calcification of the left anterior tibial left posterior tibial arteries with no significant opacification to the amputation site IMPRESSION: 80% plus stenosis left common femoral artery Occlusion proximal right superficial femoral artery over a distance of 40 mm No filling of the right superficial femoral artery in its midportion, reconstitution distal right femoral artery with multiple high-grade stenoses Severe attenuation right popliteal artery Severe calcification right anterior tibial right posterior tibial arteries with multiple occlusions and no significant filling distally Heavy calcification left superficial femoral artery, 60% short segment stenosis in its midportion Severe attenuation distal left femoral artery left popliteal artery Heavy calcification left anterior tibial left posterior tibial arteries with no significant opacification
== END | disposition home or self-care (01) ==
PROVIDERS: PCP Internal Medicine; Referring Provider Student in an Organized Health Care Education/Training Program; Visit Provider Student in an Organized Health Care Education/Training Program
DX: I70.202 Unspecified atherosclerosis of native arteries of extremities, left leg (principal); I70.203 Unspecified atherosclerosis of native arteries of extremities, bilateral legs
CPT/HCPCS: 75635; A4649; Q9967